=== PATIENT | male | born 1985 | race Caucasian/White ===

== ENCOUNTER 2022-05-17 13:10 | Emergency (ER) | payer MEDICAID, SELFPAY ==
[2022-05-17] VITALS (14 sets, daily range): BP systolic 110–124; BP diastolic 79–88; PULSE 47–84; RESP 18; TEMP 37.1; O2SAT 97–99; BMI 23.7
--- NOTE | 2022-05-17 14:15 | CRLHL7_ITS ---
For Patients: As a result of the Century Cures Act, medical imaging exams and procedure reports are released immediately into your electronic medical record. You may view this report before your referring provider. If you have questions, please contact your health care provider. INDICATION: Mid abdominal pain TECHNIQUE: Axial images were obtained from the diaphragm to the pubic symphysis. Reformats were obtained in the coronal and sagittal plane. IV Contrast: 85 cc Isovue 370 Oral Contrast: None COMPARISON: Abdomen and pelvis CT 11/05/2010 FINDINGS: Lower chest: Unremarkable. Liver: Unremarkable. Normal in size and attenuation. No masses. Gallbladder and bile ducts: Unremarkable. No stones or inflammation. No biliary dilatation. Spleen: Unremarkable. Normal in size without mass. Pancreas: Unremarkable. No mass or inflammation. Adrenal glands: Unremarkable. No nodules. Kidneys: Symmetric renal enhancement without hydronephrosis. Mild left renal scarring. Nonobstructing 1 millimeter stone lower pole right kidney. Vasculature: Unremarkable. GI tract: The stomach is unremarkable. No dilated loops of large or small intestine. Status post appendectomy. Pelvis: Trace free fluid deep pelvis. Status post surgery at the base of the bladder. Minimal calcification of the anterior wall of the bladder, no change. Bones: Diastasis of the symphysis pubis, chronic. IMPRESSION: 1. No dilated bowel or localized inflammation. 2. 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 3. Nonobstructive nephrolithiasis with left renal scarring redemonstrated. Please note that all CT scans at this facility use dose modulation, iterative reconstruction, and/or weight-based dosing when appropriate to reduce radiation dose to as low as reasonably achievable. Dictated by Maxime Lopez MD @ 05/17/2022 4:08:49 PM (Electronically Signed)
--- OUTSIDE RECORDS SUMMARY | 2022-05-17 14:24 | XMS_ITS | Encounter Summary ---
:1985 Author Organization [facility] Address [address] [place] [address] Care Team Providers Name Role Phone Zeke Duncan APRN, C.N.P., D.N.P., R.N. Primary Care P ernst Unavailable Reason for Visit Reason Comments Med Refill Encounter Details Date Type Department Care Team Description 08/25/2017 Refill Department of Family Medicine, Nafisa Sarkar L.PKristaNKrista Med Refill [facility], in [place], [address] [place] [address] [address] [address] [place] [address] [facility] [phone] Social History Tobacco Use Types Packs/Day Years Used Date Smoking Tobacco: Every Day E-cigarettes Smokeless Tobacco: Never Alcohol Use Standard Drinks/Week Comments Yes 0 (1 standard drink = 0.6 oz pure alcoho l) monthly or less Sex Assigned at Date Recorded Not on file documented as of this encounter Miscellaneous Notes Telephone Encounter - Nafisa Hale L.PEren - 08/27/2017 7:52 AM CST 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 - 08/25/2017 4:03 PM CST Nurse review: Unable to pend medication; Stimulant ?? Primary Provider: Mariana Duncan ?? Name of medication: Adderall Strength: 10 mg tab Frequency: take one tablet by mouth twice daily Quantity: 60 Refills: 0 Last Refill: 07/16/17 ?? Pharmacy: [facility] documented in this encounter Plan of Treatment Not on filedocumented as of this encounter Visit Diagnoses Not on filedocumented in this encounter Additional Health Concerns Assessment Noted Time PHQ-9 Depression Total Score: 10 03/05/2017 8:09 AM CD T documented as of this encounter Care Teams Vice President Network Relationship Specialty Start Date End Date Zeke Duncan, PCP - General Certified Nurse Practitioner 04/3003/10/18 KIKI C.N.P., D.N.P., R.N. documented as of this encounter
--- OUTSIDE RECORDS SUMMARY | 2022-05-17 14:24 | XMS_ITS | Encounter Summary ---
:1985 Author Organization [facility] Address [address] [place] [address] Care Team Providers Name Role Phone Ann Nava M.D. Primary Care Provider [phone] Reason for Visit Reason Comments Neck Pain C5 and C6 pain, R>L, w/ting ling and some tingling in bilateral UE Encounter Details Date Type Department Care Team Description 12/24/2020 Emergency [facility] Toro Boateng Neck Mechanical Department Kristi Estes (Primary Dx) [address] [place] [id number] Social History Tobacco Use Types Packs/Day Years Used Date Smoking Tobacco: Every Day E-cigarettes Smokeless Tobacco: Never Alcohol Use Standard Drinks/Week Comments Never 0 (1 standard drink = 0.6 oz pure alcoho l) monthly or less Alcohol Habits Answer Date Recorded How often do you have a drink containing alcohol? Never 12/24/2020 How many drinks containing alcohol do you have on a typical Not asked day when you are drinking? How often do you have six or more drinks on one occasion? No t asked Sex Assigned at Date Recorded Not on file documented as of this encounter Last Filed Vital Signs Vital Sign Reading Time Taken Comments Blood Pressure 120/84 12/24/2020 1:45 PM CDT Pulse 62 12/24/2020 1:45 PM CDT Temperature 36.9 ??C (98.4 ??F) 12/24/2020 12:01 PM CDT Respiratory Rate 20 12/24/2020 12:01 PM CDT Oxygen Saturation 96% 12/24/2020 1:45 PM CDT Inhaled Oxygen Concentration - - Weight 89.3 kg (196 lb 13.9 oz) 12/24/2020 10:31 AM CDT Height 182.9 cm (6') 12/24/2020 10:31 AM CDT Body Mass Index 26.7 12/24/2020 10:31 AM CDT documented in this encounter Discharge Instructions Discharge InstructionsToro Boateng M.D. - 12/24/2020 1:44 PM CDT You may use acetaminophen 1000 mg every 6 hours as needed for pain. Do not use aleve or ibuprofen while taking prescription Toradol. documented in this encounter Medications at Time of Discharge Medication Sig Dispensed Refills Start Date End Date acetaminophen (TYLENOL) Take 975 mg by 0 09/01/19 20 325 mg tablet mouth 4 (four) times a day. Pt states md gave me approval to take 3 tabs of 325 tylenol ibuprofen (ADVIL,MOTRIN) Take 600 mg by 0 08/31/ 020 600 mg tablet mouth 3 (three) times a day. traZODone (DESYREL) 50 mg Take 50 mg by 0 019 tablet mouth. cyclobenzaprine (FLEXERIL) Take 10 mg by mouth 0 04/30/2022 10 mg tablet 3 (three) times a day as needed for muscle spasms. cyclobenzaprine (FLEXERIL) Take 1 tablet (10 15 tablet 0 01/03/2021 10 mg tablet mg total) by mouth 3 (three) times a day as needed for muscle spasms for up to 10 days. ketorolac (TORADOL) 10 mg Take 1 tablet (10 20 tablet 0 04/30/2022 tablet mg total) by mouth every 6 (six) hours as needed for pain. documented as of this encounter ED Notes Toro Boateng M.D. - 12/24/2020 1:35 PM CDT SUBJECTIVE CHIEF COMPLAINT/REASON FOR VISIT Neck Pain (C5 and C6 pain, R>L, w/tingling and some tingling in bilateral UE) HISTORY OF PRESENT ILLNESS 35-year-old male who is in the process of workup for cervical pain which waspreviously diagnosis mechanical associated with the degenerative cervical disc at C5-6 by his history. He has had an outside MRI and workup and was scheduled for a cervical epidural injection last week that there were logistical difficulties in completing this. He is being followed at the [facility] and there specialty providers. He presents here today with refractory posterior cervical pain and radiates across the upper back but does not enter the arms he denies any focal motor weakness he has had some variable numbness and tingling of his upper arms but today his hands feel relatively normal. PAST MEDICAL HISTORY Positive for hypospadia is with multiple past urogenital procedures. REVIEW OF SYSTEMS All other systems reviewed and are negative. OBJECTIVE Initial Vitals Temperature Pulse Rate Heart Rate Resp Rate Blood Pressure SpO2 12/24/20 1201 12/24/20 1201 -- 12/24/20 1201 12/24/20 1201 12/24/20 1201 36.9 ??C 66 20 (!) 124/93 99 % Pain Score 12/24/20 1032 9 PHYSICAL EXAMINATION Constitutional: Nursing note and vitals reviewed. He appears not lethargic. No distress. HENT: Head: Atraumatic. Nose: Nose normal. No nasal discharge. Mouth/Throat: Oropharynx is clear and moist. Mucous membranes are moist. Eyes: Conjunctivae and EOM are normal. Right eye exhibits no discharge. Left eye exhibits no discharge. Neck: Neck supple. No neck adenopathy. No tracheal deviation present. He has a functional torticollis with difficulty rotating his chin to the left and also lateral flexion of his ear down to the shoulder to the left. He is also restricted slightly on the right but not quite as severe. Following some analgesics medication he improved his range of motion significantly. Cardiovascular: Normal rate, regular rhythm and normal heart sounds. Pulses are strong and palpable.Capillary refill: takes less than 3 seconds, Pulmonary/Chest: Effort normal and breath sounds normal. No tachypnea. No respiratory distress. Expiration is no prolonged expiration. Air movement is not decreased. He exhibits no retraction. Abdominal: Scaphoid and soft. Musculoskeletal: General: No tenderness, deformity or edema. Normal range of motion. Cervical back: Neck supple. 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 He is not disoriented. Displays normal reflexes. No cranial nerve deficit. He exhibits normal muscle tone. Coordination normal. Skin: Skin is warm, skin not cool and dry. No petechiae and no rash noted. He is not diaphoretic. Nojaundice. Psychiatric: He has a normal mood and affect. Behavior is normal. Judgment and thought content normal. ASSESSMENT/PLAN ED Course as of Dec 24 1340 Sun Dec 24, 2020 1339 35-year-old male presents with uncontrolled mechanical neck pain. Workup in progress at an outside facility. He has no red flag signs or symptoms on exam today and we were adequately able to control his pain with a single dose of ketorolac 60 mg IM, oxycodone 10 mg p.o. once and acetaminophen 1000 mg p.o. once. He will be discharged on oral Ketoralac and Flexeril prescriptions with the continuation of OTC acetaminophen for pain control. He is instructed to follow-up with his outside physical medicine team tomorrow for further instructions regarding rescheduling his cervical epidural. Final Diagnoses: as of Dec 24 1340 Pain Neck Mechanical Toro Boateng M.D. 12/24/20 1509 documented in this encounter Plan of Treatment Not on filedocumented as of this encounter Visit Diagnoses Diagnosis Pain Neck Mechanical - Primary documented in this encounter Administered Medications Inactive Administered Medications - up to 3 most recent administrations Medication Order MAR Action Action Date Dose Rate Site acetaminophen tablet 1,000 mg Given 12/24/2020 12:37 PM CDT 1,00 0 mg (TYLENOL) 1,000 mg, oral, Once, On 12/24/20 at 1232, For 1 dose ketorolac injection 60 mg (TORADOL) Given 12/24/2020 11:52 AM CDT 60 mg Othe r 60 mg, intramuscular, Once, On 12/24/20 at 1143, For 1 dose, Adult IV push rate: Over 15 seconds. Peds IV push rate: Over 1 minute. 60 mg dose only for IM, not recommended for IV. oxyCODONE IR tablet 10 mg (ROXICODONE) Given 12/24/2020 12:37 PM CDT 10 mg 10 mg, oral, Once, On 12/24/20 at 1232, For 1 dose documented in this encounter Active and Recently Administered Medications Times are shown in CDT. Scheduled Medication Order 12/22/2020 12/23/2020 12/24/2020 acetaminophen tablet 1,000 mg (TYLENOL) (COMPLETED) 1237 (Given - Provider: Mayela Oro) 1,000 mg, oral, Once, On 12/24/20 at 1232, For 1 dose ketorolac injection 60 mg (TORADOL) (COMPLETED) 1152 (Given - Provider: Mayela Oro) 60 mg, intramuscular, Once, On Sun at 1143, For 1 dose, Adult IV push rate: Over 15 seconds. Peds IV push rate: Over 1 minute. 60 mg dose only for IM, not recommended for IV. oxyCODONE IR tablet 10 mg (ROXICODONE) (COMPLETED) 1237 (Given - Provider: Mayela Oro) 10 mg, oral, Once, On 12/24/20 at 1232, For 1 dose documented in this encounter Additional Health Concerns Assessment Noted Time PHQ-9 Depression Total Score: 10 03/05/2017 8:09 AM CD T documented as of this encounter Care Teams Shift Coordinator Relationship Specialty Start Date End Date Ann Nava M.D. PCP - General 03/11/[address] [address] documented as of this encounter
--- OUTSIDE RECORDS SUMMARY | 2022-05-17 14:24 | XMS_ITS | Encounter Summary ---
:1985 Author Organization [facility] Address [address] [place] [address] Care Team Providers Name Role Phone Ann Nava M.D. Primary Care Provider [phone] Reason for Visit Reason Comments Nail Problem Pt presents to ED with R 5th toe pain/redness/ and streaking up foot. Pt reports he cut a hangnail ~2 days ago. Encounter Details Date Type Department Care Team Description 04/30/2022 Emergency [facility], Murray Wilkinson Par onychia Toe Right Department M.DKrista (Primary Dx) [address] [place] [address] [phone] (Wo rk) Social History Tobacco Use Types Packs/Day Years [...] Sign Reading Time Taken Comments Blood Pressure 112/79 04/30/2022 11:15 PM CDT Pulse 67 04/30/2022 11:15 PM CDT Temperature 37 ??C (98.6 ??F) 04/30/2022 11:10 PM CDT Respiratory Rate 16 04/30/2022 11:16 PM CDT Oxygen Saturation 96% 04/30/2022 11:15 PM CDT Inhaled Oxygen Concentration - - Weight 72.6 kg (160 lb) 04/30/2022 9:19 PM CDT Height 182.9 cm (6') 04/30/2022 9:19 PM CDT Body Mass Index 21.7 04/30/2022 9:19 PM CDT documented in this encounter Discharge Instructions Discharge InstructionsMurray Veronica M.D. - 04/30/2022 11:08 PM CDT Start the antibiotic cefuroxime/Ceftin as prescribed. I would expect improvement over the next 24-48hours. Soak with warm wet gauze twice a day to help break up the crusting. AttachmentsThe following attachments cannot be sent through Care Everywhere. Paronychia (Beninese)documented in this encounter Medications at Time of Discharge Medication Sig Dispensed Refills Start Date End Date hydrOXYzine (ATARAX) 50 mg 0 2 tablet QUEtiapine (SEROquel) 50 0 04/26/2022 mg tablet sertraline (ZOLOFT) 50 mg 0 01/24/2022 tablet acetaminophen (TYLENOL) Take 975 mg by mouth 0 325 mg tablet 4 (four) times a day. Pt states gave me approval to take 3 tabs of 325 tylenol cefUROXime (CEFTIN) 500 mg Take 1 tablet (500 mg 20 tablet 0 04/30/2022 tablet total) by mouth every 12 (twelve) hours. ibuprofen (ADVIL,MOTRIN) Take 600 mg by mouth 0 0 09/01/2019 600 mg tablet 3 (three) times a day. traZODone (DESYREL) 50 mg Take 50 mg by mouth. 0 02/02/2019 tablet documented as of this encounter ED Notes Murray Veronica M.D. - 04/30/2022 11:06 PM CDT [facility] 04/30/2022 11:36 PM CDT *Encounter labs and radiology results at the end of this note* Chief Complaint Patient presents with Nail Problem Pt presents to ED with R 5th toe pain/redness/ and streaking up foot. Pt reports he cut a hangnail ~2 days ago. PCP: Ann Nava M.D. HPI: 36-year-old man with no significant pertinent past medical history presenting with about two days of progressive pain, redness, and streaking redness up his right foot after removing an ingrown toenail from his right 5th toe. Initially it bled and he bandaged it. It is now red, painful with walking or touch, with the previously mentioned streaking redness. No fevers chills nausea vomiting diarrhea. No other systemic symptoms. He does recall that seeing the red streaking is a sign that he neededto get it evaluated sooner than later so he presents today for ED evaluation. No recent antibiotics.No topical treatments. A complete review of systems was obtained and negative except as in the HPI. No alcohol, tobacco, or illicit drugs. PHYSICAL EXAMINATION General: Well-appearing in no acute distress. HEENT: Head is normocephalic and atraumatic. Hearing and vision are grossly normal. No scleral icterus, jaundice, or pallor. Neck: Supple, with normal range of motion. Heart: Heart rate is normal and regular Lungs: Breathing at a normal rate, no respiratory distress Abdomen: Nondistended. Right foot: Fifth digit is erythematous, tender, with lateral nail bed crusting where the nail has recently been removed. No current ingrown nail, no discharge, drainage, purulence, or evidence of abscess. Neurologic: GCS 15. Moving all 4 extremities spontaneously. Psychiatric: Normal mood and affect. Differential diagnosis includes cellulitis, abscess, paronychia. MDM: 36-year-old gentleman presenting with right toe pain clinically consistent with paronychia fromlikely removal of his ingrown nail. No nail repair necessary and there is no incision and drainage to perform as I do not appreciate any discrete abscess. Given the streaking redness starting on his right foot which likely represents localized phlebitis, I think this is better treated with systemic antibiotics and topical. Discharge on cefuroxime. Final Diagnoses: as of 04/30/22 2336 Paronychia Toe Right Vitals: 04/30/22 2300 04/30/22 2310 04/30/22 2315 04/30/222315 BP: 112/80 112/79 BP Location: Patient Position: Pulse: 64 67 Resp: 16 16 Temp: 37 ??C TempSrc: Temporal SpO2: 97% 96% Weight: Height: Medications acetaminophen tablet 1,000 mg (TYLENOL) (1,000 mg oral Given 04/30/222123) ibuprofen tablet 600 mg (ADVIL,MOTRIN) (600 mg oral Given 04/30/222240) oxyCODONE IR tablet 5 mg (ROXICODONE) (5 mg oral Given 04/30/222315) Clinical Impression: Final diagnoses: [L03.031] Paronychia Toe Right Disposition: Discharge ED Prescriptions Medication Sig Dispense Start Date End Date Auth. Provider cefUROXime (CEFTIN) 500 mg tablet Take 1 tablet (500 mg total) by mouth every 12 (twelve) hours. 20tablet 04/30/2022 -- Murray Veronica M.D. Labs Reviewed - No data to display No orders to display Murray Veronica M.D. 04/30/22 4593 documented in this encounter Plan of Treatment Not on filedocumented as of this encounter Visit Diagnoses Diagnosis Paronychia Toe Right - Primary documented in this encounter Administered Medications Inactive Administered Medications - up to 3 most recent administrations Medication Order MAR Action Action Date Dose Rate Site acetaminophen tablet 1,000 mg Given 04/30/2022 9:24 PM CDT 1,000 mg (TYLENOL) 1,000 mg, oral, Once, On Fri04/30/22 at 2123, For 1 dose ibuprofen tablet 600 mg (ADVIL,MOTRIN) Given 04/30/2022 10:41 PM CDT 600 mg 600 mg, oral, Once, On Fri04/30/22 at 2241, For 1 dose, Take with food or milk if GI disturbances occur with use. oxyCODONE IR tablet 5 mg (ROXICODONE) Given 04/30/2022 11:16 PM CDT 5 mg 5 mg, oral, Once, On Fri04/30/22 at 2315, For 1 dose documented in this encounter Active and Recently Administered Medications Times are shown in CDT. Scheduled Medication Order 04/28/2022 04/29/2022 04/30/2022 acetaminophen tablet 1,000 mg (TYLENOL) (COMPLETED) 2123 (Given - Provider: Keri Barrios RKristaNKrista) 1,000 mg, oral, Once, On Fri04/30/22 at 2123, For 1 dose ibuprofen tablet 600 mg (ADVIL,MOTRIN) (COMPLETED) 2240 (Given - Provider: Keri Barrios RKristaNKrista) 600 mg, oral, Once, On Fri04/30/22 at 22 41, For 1 dose, Take with food or milk if GI disturbances occur with use. oxyCODONE IR tablet 5 mg (ROXICODONE) (COMPLETED) 2315 (Given - Provider: Rupinder Michelle R.N.) 5 mg, oral, Once, On Fri04/30/22 at 2315, For 1 dose documented in this encounter Additional Health Concerns Assessment Noted Time PHQ-9 Depression Total Score: 10 03/05/2017 8:09 AM CD T documented as of this encounter Care Teams Dog Sitter Relationship Specialty Start Date End Date Ann Nava M.D. PCP - General 03/11/182199 [address] [address] documented as of this encounter
--- OUTSIDE RECORDS SUMMARY | 2022-05-17 14:24 | XMS_ITS | Encounter Summary ---
:[address] [facility] Address [address] [place] [address] Care Team Providers Name Role Phone Zeke Duncan APRN, C.N.P., D.N.P., R.N. Primary Care P ernst Unavailable Reason for Visit Reason Comments Med Refill Encounter Details Date Type Department Care Team Description 07/15/2017 Refill Department of Family Medicine, Nafisa Sarkar L.P.NKrista Med Refill [facility], in [place], [address] [place] [address] [address] [address] [place] [address] [facility] [phone] Social History Tobacco Use Types Packs/Day Years Used Date Smoking Tobacco: Every Day E-cigarettes Smokeless Tobacco: Never Alcohol Use Standard Drinks/Week Comments Yes 0 (1 standard drink = 0.6 oz pure alcoho l) monthly or less Sex Assigned at Date Recorded Not on file documented as of this encounter Miscellaneous Notes Telephone Encounter - Nafisa Hale L.PKristaN. - 07/15/2017 12:48 PM FOREST OFFICER Brought to the info desk ST OFFICER Telephone Encounter - Nafisa Hale L.P.N. - 07/15/2017 10:51 AM FOREST OFFICER Nurse review: Unable to propose medication; Controlled substance Primary Provider: Zeke Duncan ?? Name of medication: ADDERALL TAB Strength: 10mg Frequency: Take one tablet by mouth twice daily Quantity: 60 Refills: Last Refill: 06-09-2017 ?? Pharmacy: Tammie Lopez [facility] documented in this encounter Plan of Treatment Not on filedocumented as of this encounter Visit Diagnoses Not on filedocumented in this encounter Additional Health Concerns Assessment Noted Time PHQ-9 Depression Total Score: 03/05/2017 8:09 AM CD T documented as of this encounter Care Teams Cruise Staff Member Relationship Specialty Start Date End Date Zeke Duncan, PCP - General Certified Nurse Practitioner 04/3003/10/18 KIKI C.N.P., D.N.P., R.N. documented as of this encounter
--- OUTSIDE RECORDS SUMMARY | 2022-05-17 14:24 | XMS_ITS | Clinical Summary ---
:1985 Author Organization [facility] Address [address] [place] [address] Care Team Providers Name Role Phone Ann Nava M.D. Primary Care Provider [phone] Source Comments Patient records contain information from all sites at [facility]. For routine questions regarding patient records, call [phone] during business hours, M-F 8:00 AM - 5:00 PM Central Time. Record requests for emergency care only can be directed to [phone] at any time.[facility] Allergies Active Allergy Reactions Severity Noted Date Comments Pollen Extracts Other (see comments) 12/24/2020 Homero ffy nose, headache Medications Medication Sig Dispensed Refills Start Date End Date Status acetaminophen Take 975 mg 0 09/01/2019 Act armando (TYLENOL) 325 mg by mouth 4 tablet (four) times a day. Pt states md gave me approval to take 3 tabs of 325 tylenol ibuprofen Take 600 mg 0 09/01/2019 Active (ADVIL,MOTRIN) 600 by mouth 3 mg tablet (three) times a day. hydrOXYzine (ATARAX) 0 01/24/2022 Active 50 mg tablet QUEtiapine 0 04/26/2022 Active (SEROquel) 50 mg tablet sertraline (ZOLOFT) 0 01/24/2022 Active 50 mg tablet traZODone (DESYREL) Take 50 mg by 0 02/02/2019 Active 50 mg tablet mouth. cefUROXime (CEFTIN) Take 1 tablet 20 tablet 0 04/30/2022 Active 500 mg tablet (500 mg total) by mouth every 12 (twelve) hours. cyclobenzaprine Take 10 mg by 0 04/30/20 Discontinued (FLEXERIL) 10 mg mouth 3 (Th erapy tablet (three) times Ineffe ctive) a day as needed for muscle spasms. ketorolac (TORADOL) Take 1 tablet 20 tablet 0 12/24/202004/30 Discontinued 10 mg tablet (10 mg total) (Th erapy by mouth Ineffectiv e) every 6 (six) hours as needed for pain. 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 Overview: Depression Anxiety Formatting of this note might be differe nt from the original. 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 Depression Major Recurrent Moderate 04/30/2012 Overview: Formatting of this note might be differe nt from the original. Inpatient psychiatry at [facility] 2011 for cutting. Formatting of this note might be differe nt from the original. Overview: Overview: Inpatient psychiatry at [facility] 2011 for cutting. Formatting of this note might be differe nt from the original. Inpatient psychiatry at [facility] 2011 for cutting. Inpatient psychiatry at [facility] 2011 for cutting. Encounters Date Type Specialty Care Team Description 04/30/2022 Ancillary Procedure 04/30/2022 Emergency [place] [facility] [place] Paron ychia Toe Right M.D. (Primary Dx) from Last 3 Months Immunizations Name Administration Dates Next Due Tdap 08/01/2015 Social History Tobacco Use Types Packs/Day Years [...] Assigned at Date Recorded Not on file Last Filed Vital Signs Vital Sign Reading [...] Mass Index 21.7 04/30/2022 9:19 PM CDT Plan of Treatment Health Maintenance Due Date Last Done Comments Depression Monitoring (PHQ-9) 1985 HIV Screening 1985 Hepatitis C Screening 1987 Tobacco Cessation counseling 1987 COVID-19 Vaccine (#1) 04/02/1988 Pneumococcal vaccine (0-64 years) 10/01/1993 (1 - PCV) Glucose Test for Med Monitoring 09/14/2020 09/15/2019, 08/28, 09/01/2019, Additional history exists Influenza Vaccine (#1) 2022 05/30/2021, 07/22/2019, 04/19/2014 DTaP,Tdap,and Td Vaccines (8 - Td 08/01/2025 08/01/2015, , or Tdap) 02/06/1993, Additional history exists Hepatitis B Vaccines Completed 03/15/2002, 08/17/2001, 01/16/2001, Additional history exists Procedures Procedure Name Priority Date/Time Associated Comments Diagnosis EMERGENCY DEPARTMENT Routine 04/30/2022 10:40 PM Results for this IMAGE EXAM CDT procedure are i n the results section. from Last 3 Months Results Toe 5th-Emergency Department Image Exam (04/30/2022 10:40 PM CDT) Specimen (Source) Anatomical Collection Method Collection Time Re ceived Time Location / / Volume Laterality 04/30/2022 10:38 PM CDT Narrative IIMS - 04/30/2022 10:41 PM CDT This order has been created and auto-finalized to support the import of images acquired without order. The clini rosemarie documentation to support these images can be found on the encounter javon t produced images. Provider Not In System IMG NON RAD IMAGING PROCEDUR ES Performing Organization Address City/State/ZIP Code Phon e Number IIMS IIMS NA from Last 3 Months Insurance Payer Benefit Plan Subscriber ID Effective Dates Phone Address Type / Group UCARE [place]ARE [place]ARE [id number] 2021-Presen [phone] [address] Medicaid HMO t 5 [place] [address] Ronan Rolon Workers Comp Self 1985 [address] [place] [address] Care Teams Manager Of Enterprise Relationship Specialty Start Date End Date Ann Nava M.D. PCP - General 03/11/18 [address] [address]
--- OUTSIDE RECORDS SUMMARY | 2022-05-17 14:24 | XMS_ITS | Encounter Summary ---
:1985 Author Organization [facility] Address [address] [place] [address] Care Team Providers Name Role Phone Zeke Duncan APRN, C.N.P., D.N.P., R.N. Primary Care P ernst Unavailable Reason for Visit Reason Comments Communication Encounter Details Date Type Department Care Team Description 08/25/2017 Clinical Communication Department of [facility] Zeke Duncan Communication Medicine, [place] Mccoy APRN, C.N.PKrista, Clinic, in [place], [place].N.P., R.N. [place] [address] [facility] [place] [address] Social History Tobacco Use Types Packs/Day Years Used Date Smoking Tobacco: Every Day E-cigarettes Smokeless Tobacco: Never Alcohol Use Standard Drinks/Week Comments Yes 0 (1 standard drink = 0.6 oz pure alcoho l) monthly or less Sex Assigned at Date Recorded Not on file documented as of this encounter Plan of Treatment Not on filedocumented as of this encounter Visit Diagnoses Not on filedocumented in this encounter Additional Health Concerns Assessment Noted Time PHQ-9 Depression Total Score: 10 03/05/2017 8:09 AM CD T documented as of this encounter Care Teams Reed Or Wind Instrument Repairer Relationship Specialty Start Date End Date Zeke Duncan, PCP - General Certified Nurse Practitioner 04/3003/10/18 KIKI C.N.P., D.N.P., R.N. documented as of this encounter
--- OUTSIDE RECORDS SUMMARY | 2022-05-17 14:24 | XMS_ITS | Encounter Summary ---
:1985 Author Organization [facility] Address [address] [place] [address] Care Team Providers Name Role Phone Zeke Duncan APRN, C.N.P., D.N.P., R.N. Primary Care P ernst Unavailable Reason for Visit Reason Onset Date Comments Med Refill 06/05/2017 Encounter Details Date Type Department Care Team Description 06/05/2017 Clinical Communication Department of [facility] Zeke Duncan Med Refill Medicine, [place] Mccoy APRN, C.N.PKrista, Clinic, in [place] oG.N.PKrista, R.N. [place] [address] [place] [address] Social History Tobacco Use Types Packs/Day Years Used Date Smoking Tobacco: Every Day E-cigarettes Smokeless Tobacco: Never Alcohol Use Standard Drinks/Week Comments Yes 0 (1 standard drink = 0.6 oz pure alcoho l) monthly or less Sex Assigned at Date Recorded Not on file documented as of this encounter Miscellaneous Notes Telephone Encounter - Rupinder Newsome CKristaMKristaAKrista - 06/09/2017 9:24 AM HUMAN RESOURCES HR REPRESENTATIVE adderall rx routed to information desk. N RESOURCES HR REPRESENTATIVE Telephone Encounter - Ligia Goodrich - 06/05/2017 12:18 PM CST Patient is out of Adderall and needs to picker tender helper an RX today if possible He is wondering if he can get a prescription for 10 mg instead of 5 Mg. He had tried 20 mg but that was too much. 5 mg doesn't seem to be enough. Patient also needs refill on Zoloft. He will be out by the weekend. This RX can be faxed to [facility] in [place]. Please call patient as soon as the RX is ready for picker tender helper. N RESOURCES HR REPRESENTATIVE documented in this encounter Plan of Treatment Not on filedocumented as of this encounter Visit Diagnoses Not on filedocumented in this encounter Additional Health Concerns Assessment Noted Time PHQ-9 Depression Total Score: 10 03/05/2017 8:09 AM CD T documented as of this encounter Care Teams Dye Range Tender Relationship Specialty Start Date End Date Zeke Duncan, PCP - General Certified Nurse Practitioner 04/3003/10/18 KIKI, C.N.P., D.N.P., R.N. documented as of this encounter
--- OUTSIDE RECORDS SUMMARY | 2022-05-17 14:24 | XMS_ITS | Encounter Summary ---
:1985 Author Organization [facility] Address [address] [place] [address] Care Team Providers Name Role Phone Ann Nava M.D. Primary Care Provider [phone] Encounter Details Date Type Department Care Team Description 04/30/2022 Ancillary Procedure Department of Emergency Medicine Social History Tobacco Use Types Packs/Day Years [...] Not on filedocumented as of this encounter Procedures Procedure Name Priority Date/Time Associated Comments Diagnosis EMERGENCY DEPARTMENT Routine 04/30/2022 10:40 PM Results for this IMAGE EXAM CDT procedure are i n the results section. documented in this encounter Results Toe 5th-Emergency Department Image Exam (04/30/2022 [...] Code Phon e Number IIMS IIMS NA documented in this encounter Visit Diagnoses Not on filedocumented in this encounter Additional Health Concerns Assessment Noted Time PHQ-9 Depression Total Score: 10 03/05/2017 8:09 AM CD T documented as of this encounter Care Teams Traffic Superintendent Relationship Specialty Start Date End Date Ann Nava M.D. PCP - General 03/11/[address] [address] documented as of this encounter
--- OUTSIDE RECORDS SUMMARY | 2022-05-17 14:24 | XMS_ITS | Encounter Summary ---
:1985 Author Organization [facility] Address [address] [place] [address] Care Team Providers Name Role Phone Zeke Duncan APRN, C.N.P., D.N.P., R.N. Primary Care P ernst Unavailable Reason for Visit Reason Comments Med Refill Encounter Details Date Type Department Care Team Description 07/15/2017 Refill Department of Family Medicine, Zeke Duncan APRN, Med Refill [facility], [facility], C.N.P., D.N .P., R.N. [place] [id number] [place] [address] [facility] [phone] Social History Tobacco Use Types Packs/Day Years Used Date Smoking Tobacco: Every Day E-cigarettes Smokeless Tobacco: Never Alcohol Use Standard Drinks/Week Comments Yes 0 (1 standard drink = 0.6 oz pure alcoho l) monthly or less Sex Assigned at Date Recorded Not on file documented as of this encounter Miscellaneous Notes Telephone Encounter - Nafisa Hale L.PKristaNKrista - 07/15/2017 10:52 AM ENGINEERING RECRUITER A new message was created and sent as a medication refill message. NEERING RECRUITER Telephone Encounter - Kirsten Dumont - 07/15/2017 9:50 AM CST Nurse review: Unable to propose medication; Controlled substance Primary Provider: Zeke Duncan Name of medication: ADDERALL TAB Strength: 10mg Frequency: Take one tablet by mouth twice daily Quantity: 60 Refills: Last Refill: 06-09-2017 Pharmacy: Tammie Gray NEERING RECRUITER documented in this encounter Plan of Treatment Not on filedocumented as of this encounter Visit Diagnoses Not on filedocumented in this encounter Additional Health Concerns Assessment Noted Time PHQ-9 Depression Total Score: 10 03/05/2017 8:09 AM CD T documented as of this encounter Care Teams Board Liner Operator Relationship Specialty Start Date End Date Zeke Duncan, PCP - General Certified Nurse Practitioner 04/3003/10/18 CELLOPHANE WORKER, C.N.P., D.N.P., R.N. documented as of this encounter
--- OUTSIDE RECORDS SUMMARY | 2022-05-17 14:24 | XMS_ITS | Encounter Summary ---
:1985 Author Organization [facility] Address [address] [place] [address] Care Team Providers Name Role Phone Zeke Duncan APRN, C.N.P., D.N.P., R.N. Primary Care P ernst Unavailable Reason for Visit Reason Comments Communication Encounter Details Date Type Department Care Team Description 07/18/2017 [facility], [place] [address] [place], [place] [address] [address] [place], [place] [phone] [address] (Work) [phone] Social History Tobacco Use Types Packs/Day Years [...] documented as of this encounter Care Teams Bryologist Relationship Specialty Start Date End Date Zeke Duncan, PCP - General Certified Nurse Practitioner 04/3003/10/18 KIKI, C.N.P., D.N.P., R.N. documented as of this encounter
--- OUTSIDE RECORDS SUMMARY | 2022-05-17 14:24 | XMS_ITS | Encounter Summary ---
:1985 Author Organization [facility] Address [address] [place] [address] Care Team Providers Name Role Phone Zeke Duncan APRN, C.N.P., D.N.P., R.N. Primary Care P ernst Unavailable Reason for Visit Reason Comments Med Refill Encounter Details Date Type Department Care Team Description 08/18/2017 Refill Department of Family Medicine, Rupinder Newsome, C.M.AKrista Med Refill [facility], in [place], [place] [address] [place] [address] [facility] [phone] Social History Tobacco Use Types Packs/Day Years Used Date Smoking Tobacco: Every Day E-cigarettes Smokeless Tobacco: Never Alcohol Use Standard Drinks/Week Comments Yes 0 (1 standard drink = 0.6 oz pure alcoho l) monthly or less Sex Assigned at Date Recorded Not on file documented as of this encounter Miscellaneous Notes Telephone Encounter - Flower Forrest RDN, LIZETH - 08/25/2017 11:34 AM CHIEF MATE Nurse review: Unable to pend medication; Stimulant Primary Provider: Mariana Duncan Name of medication: Adderall Strength: 10 mg tab Frequency: take one tablet by mouth twice daily Quantity: 60 Refills: 0 Last Refill: 07/16/17 Pharmacy: Jessica Garcia *2nd request* F MATE Telephone Encounter - Rupinder Newsome C.M.AKrista - 08/18/2017 8:49 AM CHIEF MATE Nurse review: Unable to pend medication; CS med Primary Provider: Zeke Duncan ?? Name of medication: Adderall Strength: 10 mg tab Frequency: Take one tab PO 2x day Quantity: 60 Refills: 0 Last Refill: 07/16/17 ?? Pharmacy: Jessica Butler F MATE documented in this encounter Plan of Treatment Not on filedocumented as of this encounter Visit Diagnoses Not on filedocumented in this encounter Additional Health Concerns Assessment Noted Time PHQ-9 Depression Total Score: 10 03/05/2017 8:09 AM CD T documented as of this encounter Care Teams Ore Fielder Relationship Specialty Start Date End Date Zeke Duncan, PCP - General Certified Nurse Practitioner 04/3003/10/18 KIKI C.N.P., D.N.P., R.N. documented as of this encounter
--- OUTSIDE RECORDS SUMMARY | 2022-05-17 14:24 | XMS_ITS | Encounter Summary ---
:1985 Author Organization [facility] Address [address] [place] [address] Care Team Providers Name Role Phone Zeke Duncan APRN, C.N.P., D.N.P., R.N. Primary Care P ernst Unavailable Reason for Visit Reason Comments Med Refill Encounter Details Date Type Department Care Team Description 06/06/2017 Refill Department of [facility] Florencia Rodriguez L.PEren Med Refill Medicine, [facility], in [address] [place] [address] [address] [address] [place] [address] [facility] [phone] Social History Tobacco Use Types Packs/Day Years [...] documented as of this encounter Care Teams Cyber Special Agent Relationship Specialty Start Date End Date Zeke Duncan, PCP - General Certified Nurse Practitioner 04/3003/10/18 KIKI, C.N.P., D.N.P., R.N. documented as of this encounter
--- OUTSIDE RECORDS SUMMARY | 2022-05-17 14:24 | XMS_ITS | Encounter Summary ---
:1985 Author Organization [facility] Address [address] [place] [address] Care Team Providers Name Role Phone Zeke Duncan APRN, C.N.P., D.N.P., R.N. Primary Care P ernst Unavailable Reason for Visit Reason Comments Med Refill Encounter Details Date Type Department Care Team Description 08/18/2017 Refill Department of Family Medicine, Zeke Duncan APRN, Med Refill [facility], [facility] [place] C.N.P., D.N .P., R.N. [place] [address] [place] [address] [facility] [phone] Social History Tobacco Use Types Packs/Day Years Used Date Smoking Tobacco: Every Day E-cigarettes Smokeless Tobacco: Never Alcohol Use Standard Drinks/Week Comments Yes 0 (1 standard drink = 0.6 oz pure alcoho l) monthly or less Sex Assigned at Date Recorded Not on file documented as of this encounter Miscellaneous Notes Telephone Encounter - Aide Casiano - 08/18/2017 7:16 AM CST Nurse review: Unable to pend medication; CS med Primary Provider: Zeke Duncan Name of medication: Adderall Strength: 10 mg tab Frequency: Take one tab PO 2x day Quantity: 60 Refills: 0 Last Refill: 07/16/17 Pharmacy: Jessica Butler LITIES ASSISTANT documented in this encounter Plan of Treatment Not on filedocumented as of this encounter Visit Diagnoses Not on filedocumented in this encounter Additional Health Concerns Assessment Noted Time PHQ-9 Depression Total Score: 10 03/05/2017 8:09 AM CD T documented as of this encounter Care Teams Sawyer Helper Relationship Specialty Start Date End Date Zeke Duncan, PCP - General Certified Nurse Practitioner 04/3003/10/18 KIKI, C.N.P., D.N.P., R.N. documented as of this encounter
--- OUTSIDE RECORDS SUMMARY | 2022-05-17 14:25 | XMS_ITS | Encounter Summary ---
:1985 Author Organization [facility] Address [address] [place] [address] Care Team Providers Name Role Phone Unavailable Primary Care Provider Unavailable Encounter Details Date Type Department Care Team Description 02/08/2014 Hospital Encounter HX NO MAPPING Jonathon Strong III, M.D. (Skip), M.P.H. [address] [place], [place] [address] (Wo rk) Social History Tobacco Use Types Packs/Day Years Used Date Smoking Tobacco: Never Assessed Sex Assigned at Date Recorded Not on file documented as of this encounter Plan of Treatment Not on filedocumented as of this encounter Visit Diagnoses Not on filedocumented in this encounter Additional Health Concerns Assessment Noted Time PHQ-9 Depression Total Score: 1 02/26/2012 12:00 PM CD T documented as of this encounter
--- OUTSIDE RECORDS SUMMARY | 2022-05-17 14:25 | XMS_ITS | Encounter Summary ---
:1985 Author Organization [facility] Address [address] [place] [address] Care Team Providers Name Role Phone Jami Ross APRN C.N.Olga, M.S. Primary Care Pro vider Encounter Details Date Type Department Care Team Description 04/29/2017 Orders Only Department of Family [facility] [place] APRN, Examin [facility], in [place] Go, M.S . [place] [address] [facility] [address] [place] [address] Social History Tobacco Use Types Packs/Day Years Used Date Smoking Tobacco: Every Day Sex Assigned at Date Recorded Not on file documented as of this encounter Plan of Treatment Not on filedocumented as of this encounter Visit Diagnoses Diagnosis General Medical Examination Adult documented in this encounter Additional Health Concerns Assessment Noted Time PHQ-9 Depression Total Score: 10 03/05/2017 8:09 AM CD T documented as of this encounter Care Teams Ironworker Helper Shop Relationship Specialty Start Date End Date Jami Ross APRN, C.N.P., PCP - General 12/12/16 05/14/17 M[address] [place] [address] documented as of this encounter
--- OUTSIDE RECORDS SUMMARY | 2022-05-17 14:25 | XMS_ITS | Encounter Summary ---
:1985 Author Organization [facility] Address [address] [place] [address] Care Team Providers Name Role Phone Zeke Duncan APRN, C.N.P., D.N.P., R.N. Primary Care P ernst Unavailable Reason for Visit Reason Comments Communication Encounter Details Date Type Department Care Team Description 05/13/2017 Clinical Communication Department of [facility] Paty Aj Communication MedicineDonavan M.D. [facility], in [address] [address] [place], [place] [phone] [address] (Work) [phone] Social History Tobacco Use Types Packs/Day Years Used Date Smoking Tobacco: Every Day E-cigarettes Smokeless Tobacco: Never Alcohol Use Standard Drinks/Week Comments Yes 0 (1 standard drink = 0.6 oz pure alcoho l) monthly or less Sex Assigned at Date Recorded Not on file documented as of this encounter Miscellaneous Notes Telephone Encounter - Paty Aj M.D. - 05/15/2017 8:51 AM CAMPAIGN MARKETING MANAGER Work excuse provided. AIGN MARKETING MANAGER documented in this encounter Plan of Treatment Not on filedocumented as of this encounter Visit Diagnoses Not on filedocumented in this encounter Additional Health Concerns Assessment Noted Time PHQ-9 Depression Total Score: 10 03/05/2017 8:09 AM CD T documented as of this encounter Care Teams Senior Premium Auditor Relationship Specialty Start Date End Date Zeke Duncan, PCP - General Certified Nurse Practitioner 04/3003/10/18 Vijaya SWANSONNKristaP., D.N.P., R.N. documented as of this encounter
--- OUTSIDE RECORDS SUMMARY | 2022-05-17 14:25 | XMS_ITS | Encounter Summary ---
:1985 Author Organization [facility] Address [address] [place] [address] Care Team Providers Name Role Phone Unavailable Primary Care Provider Unavailable Encounter Details Date Type Department Care Team Description 08/01/2015 Hospital Encounter [facility]X [facility] Jami Sylvester APRN, C.N.P., M.S. [address] [place] [address] (Wo rk) Social History Tobacco Use Types Packs/Day Years Used Date Smoking Tobacco: Never Assessed Sex Assigned at Date Recorded Not on file documented as of this encounter Last Filed Vital Signs Vital Sign Reading Time Taken Comments Blood Pressure 110/64 08/01/2015 1:50 PM DIRECTOR OF PUBLIC SAFETY Pulse 88 08/01/2015 1:50 PM DIRECTOR OF PUBLIC SAFETY Temperature - - Respiratory Rate 16 08/01/2015 1:50 PM DIRECTOR OF PUBLIC SAFETY Oxygen Saturation - - Inhaled Oxygen Concentration - - Weight 75.7 kg (166 lb 14.2 oz) 08/01/2015 1:50 PM DIRECTOR OF PUBLIC SAFETY Height - - Body Mass Index 22.36 02/26/2012 10:00 AM CDT documented in this encounter Progress Notes Jami Barone APRN, R.N. - 08/01/2015 1:34 PM CST [id number] CHIEF COMPLAINT/REASON FOR VISIT Medication refill, depression. HISTORY OF PRESENT ILLNESS 1. Attention deficit hyperactivity disorder. The patient presents today in order to obtain a refill of his Ritalin. He has been off of it since March. Patient temporarily relocated to [place], but he is back living in [place] now. His last prescription for the Ritalin was filled on February, for a 1-month supply according to the [place] Prescription Monitoring program. He denies that he obtained any prescriptions in [place] while he stayed there. He states that since being off ofthis medication his inattention symptoms have worsened. He is seeking to restart this medication nowbecause he is going to be employed full-time starting on Friday, and he knows that this medication will increase the likelihood of job success. He will be working at [employer]. Patient had been formally diagnosed with ADHD by [facility] in December of 2012. He has received his medications from several providers at the [facility]. Past dose was Adderall 20 mg 2 times daily. He thinks that because he has been off this medication for quite some time that he may no longer require such a high dose. 2. Depression. Patient states that he has battled with depression for many years. He has never undergone counseling for his depression symptoms. He states that he had a suicide attempt but that was many years ago. Has also had transient suicidal ideation but none at present time. He often has feelingsthat he is a failure and loss of pleasure in doing things. The patient has been treated with severaldifferent antidepressants in the past, and he is looking to resume therapy with an SSRI. He identifies increased stress at present time due to a recent break-up with his fiancee. He states that his depression symptoms had worsened prior to this event. PHQ-9 score 18 today. MEDICATIONS None. ALLERGIES None. SYSTEMS REVIEW Negative except as stated in the history of present illness. PAST MEDICAL/SURGICAL HISTORY Attention deficit hyperactivity disorder, depression, epispadias with surgical repair as a child. SOCIAL HISTORY HEALTH HABITS: Patient currently is a tobacco user smoking less than 1/2 pack per day. He denies useof alcohol. Admits to recently smoking marijuana at a libertarian but states this is not a regular habit of his. Denies use of other street drugs. 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 He will begin full-time employment through a temporary agency at [employer] starting next week. IMMUNIZATIONS: Patient reports he is due for a tetanus immunization. FAMILY HISTORY Patient reports his grandmother had colon cancer. Denies other family history of chronic illnesses or cancers. VITAL SIGNS Weight 75.7 kg. Temperature 36.8, heart rate 88, respiratory rate 16, blood pressure 110/64. PHYSICAL EXAMINATION GENERAL: Patient is a well-developed, well-nourished 29-year-old male, in no acute distress. His behavior, appearance, and speech are appropriate today. SKIN: Warm to the touch with good turgor. No rashes or ulcerations. EYES: Sclerae are white. Conjunctivae are without erythema. LUNGS: Clear to auscultation bilaterally in all ambrosio without rales, rhonchi, wheezing, or diminished breath sounds. CARDIOVASCULAR: S1, S2. Regular rate and rhythm without murmurs, rubs, or gallops. NEUROLOGIC: Mental status: Alert and oriented x3. Normal affect. No suicidal or homicidal ideation. IMPRESSION/REPORT/PLAN 1. Attention deficit hyperactivity disorder. Discussed risks and benefits of ongoing stimulant medication therapy. Advised patient that combination of counseling as well as pharmacologic therapy is beneficial for control of his ADHD symptoms. Patient agrees and referral was placed for [facility] in [place]. Discussed the need to establish with a primary care provider and obtain stimulant medications only from that provider. Patient agrees to this. Controlled substance agreement contract was reviewed and patient agrees to the terms. Patient was provided a 30-day prescription forAdderall 10 mg 2 times daily. He will return in 2 weeks' time to follow up on his depression symptoms and he will obtain his next month's supply at that visit. 2. Depression. Again, counseling was encouraged for better control of his depression symptoms. The patient has been referred to an outside provider for counseling. Patient will restart Zoloft. He will begin at a dose of 25 mg for 1 week then increasing to 50 mg. Patient was cautioned that there is potential for worsening depression with use of these types of medications. Patient verbalized understanding that should his depression worsen or if he has suicidal or homicidal ideation, he should seek emergent care in the emergency room. Patient will follow up in 2 weeks, sooner if needed. 3. Health maintenance. Tdap immunization provided today. Patient will be due for a general medical examination this summer, in December, and he agrees to this visit. Jami Barone R.N. (Meg)/saud Electronically Signed By: JAMI BARONE APRN On: 08/02/2015 10:14 AM Modified by and Electronically Signed by: JAMI BARONE APRN On: 08/02/2015 10:14 AM Source: [facility] MHSDOLBEYNONRADSYS Document Id: [id number] CTOR OF PUBLIC SAFETY documented in this encounter Miscellaneous Notes Miscellaneous - Dean Dawson R.N. - 03/11/2016 2:53 PM CDT Med Management- Zoloft Document Contains Addenda Addendum by JAMI BARONE APRN, RN on March 11, 2016 15:14:05 CDT sent Addendum by JAMI BARONE APRN, RN on March 11, 2016 15:13:54 CDT Approved with modifications: Order:sertraline (Zoloft 100 mg oral tablet) 1 tab(s) PO Daily Appt needed Qty: 30 tab(s) Refills: 2 Substitutions Allowed Route To Pharmacy - [facility] Signed by JAMI BARONE APRN, RN 03/11/2016 15:13:51 From: DEAN DAWSON RN (OW Nurse Line) To: JAMI BARONE APRN, RN; Sent: 03/11/2016 14:53:24 CDT Subject: Med Management- Zoloft On hold pending signature Order:sertraline (Zoloft 100 mg oral tablet) 1 tab(s) PO Daily Appt needed Qty: 30 tab(s) Refills: 0 Substitutions Allowed Route To Pharmacy [facility] Caller is: ( ) Patient ( ) Mother ( ) Father ( ) Spouse ( ) Daughter ( ) Son ( [employer]) Pharmacy ( ) Other: Provider: [facility]acy: Name of Medications Needing Refill:Zoloft Last Refill Date: Additional Information:Last appt 08/29/15 (attached) with request for f/u in (1) month PHQ9 (22) and GAD7 (18) also 08/29/15 - attached Last / Future Appointment:No pending appt Disposition: ( ) Send to Pharmacy ( ) Call to Pharmacy ( ) 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 Looked up the phone number for him to call at [phone]. He agreed to call them. From: JORDAN QUINTERO ([facility] 2W Nurse) To: [facility] 2W Nurse; Sent: 08/04/2015 13:48:44 DIRECTOR OF PUBLIC SAFETY Subject: *Phone Message- Nhi Caller is: ( x ) Patient ( ) Mother ( ) Father ( ) Spouse ( ) Daughter ( ) Son ( ) Pharmacy ( ) Other: Physician: Patient MRN #: Reason for Call: Message: would like a call, would like to discuss appt he had with Nhi about referal, please call [phone] Advice/Action: Source used: ( ) Verbalizes understanding of instructions ( ) Instructed to call back if symptoms worsen or do not resolve ( ) Refused to see provider ( ) Appointment Scheduled ( ) OK to leave message on voice mail ( ) Patient told to expect return call: ( ) today ( ) tomorrow ( ) next work day ( ) Patient's email ( ) Patient told physician out of office, will call upon return call on ( ) ( ) Patient told physician out of office, routed to other physician ( ) Other ( ) Call back telephone number ( ) Call back cell phone number ( ) Source: [facility] Activehours Document Id: [id number] Telephone Encounter - Vivek Booth C.M.A. - 08/02/2015 9:13 AM DIRECTOR OF PUBLIC SAFETY *Phone Message- f/up questions on recent referral Document Contains Addenda Addendum by AILYN RUBIO CMA on 09 August 2015 10:14:05 DIRECTOR OF PUBLIC SAFETY patient was seen by Chica on 08-08-15 and has spoke with Chica about this. See EMR notes. Addendum by ERIC VASQUES CMA on 03 August 2015 12:43:53 DIRECTOR OF PUBLIC SAFETY Left message to call back Addendum by JAMI BARONE APRN on 03 August 2015 12:40:50 DIRECTOR OF PUBLIC SAFETY From: JAMI BARONE APRN To: [facility] 2W Nurse; Sent: 08/03/2015 12:40:50 DIRECTOR OF PUBLIC SAFETY Subject: RE: *Phone Message- f/up questions on recent referral This patient just needs counseling. No med therapy from psychiatry. Based on the message below, patient needs to call himself. Please notify the patient of this. Thanks Addendum by ERIC VASQUES CMA on 03 August 2015 10:56:13 DIRECTOR OF PUBLIC SAFETY From: ERIC VASQUES CMA ([facility] 2W Nurse) To: JAMI BARONE APRN; Sent: 08/03/2015 10:56:13 DIRECTOR OF PUBLIC SAFETY Subject: FW: *Phone Message- f/up questions on recent referral Addendum by ERIC VASQUES CMA on 03 August 2015 10:56:07 OSMEL Spoke to senior receptionist at [facility]. pshychiatry and psychology. She wants everyone here ([facility]) to know they DO NOT call patients and they DO NOT need referrals from our doctors. The patient must call to schedule their appt. Currently at this time they do not have a psychiartist on staff, they are in the process of training one but No start date has been indicated. They do have psychologist on staff in several different specialty areas, however no psychiatrist to prescribe meds at this time. Patients may call their [place] office if they are willing to drive there. Ask her about Talk therapy and she never heard of it, she is not sure what you mean by talk therapy,they have Play therapy Please advise Addendum by VIVEK BOOTH CMA on 02 August 2015 09:45:13 DIRECTOR OF PUBLIC SAFETY I called pt and left message to call back. Addendum by HARRISONCHIKISJAMI SCHILLING KIKI on 02 August 2015 09:30:27 DIRECTOR OF PUBLIC SAFETY From: LIZABETH JAMI Mccoy KIKI To: [facility] 2 Nurse; Sent: 08/02/2015 09:30:27 DIRECTOR OF PUBLIC SAFETY Subject: RE: *Phone Message- f/up questions on recent referral Talk therapy please. I can do the medications at this point. Thanks From: VIVEK BOOTH CMA ([facility] 2W Nurse) To: LIZABETH JAMI Nadine SWANSON; Sent: 08/02/2015 09:13:02 DIRECTOR OF PUBLIC SAFETY Subject: *Phone Message- f/up questions on recent referral Caller is: ( ) Patient ( ) Mother ( ) Father ( ) Spouse ( ) Daughter ( ) Son ( ) Pharmacy ( X ) Other: [facility] office Physician: Chica Lizabeth Patient MRN #: Reason for Call: Re: recent referral Message: Do you want pt to have talk therapy or medications? They are at a stand still for psychiatry right now, but would be able to get him in for talk therapy. Please advise. Also, had mentioned referral is not required but pt would need to call them to set up appt. - [place] office # [phone] & [facility] office # [phone]. Advice/Action: Message sent to provider to review & advise on type of therapy needed. Can call pt to inform him to contact them to set up appt. Source used: ( ) Verbalizes understanding of instructions ( ) Instructed to call back if symptoms worsen or do not resolve ( ) Refused to see provider ( ) Appointment Scheduled ( ) OK to leave message on voice mail ( ) Patient told to expect return call: ( ) today ( ) tomorrow ( ) next work day ( ) Patient's email ( ) Patient told physician out of office, will call upon return call on ( ) ( ) Patient told physician out of office, routed to other physician ( ) Other ( ) Call back telephone number ( ) Call back cell phone number ( ) Source: [facility] Activehours Document Id: [id number] Electronically signed by Conversion, [facility] [employer] Speech Therapist [id number] at 11/23/2016 9:30 AM CDT Miscellaneous - Conversion, Historical Provider Ser - 08/02/2015 9:04 AM DIRECTOR OF PUBLIC SAFETY [facility] 02 August 2015 Re: RONAN MAGALLANES 1985 MR# [id number] Date of Visit 08/01/2015 [facility], To Whom it May Concern, This patient is being referred for continuing care at your facility. Following your evaluation(s), Iwould appreciate hearing: Your findings and recommendations Notification regarding any medication changes Copies of lab radiology and other reports Please see included pertinent records. Thank you for your assistance with the evaluation and treatment of this patient. Sincerely, Jami Barone APRN The following Transition of Care Summary was included in the letter: (08/02/2015) Transition of Care/Referral Summary This document has images extracted. Source: [facility] Activehours Document Id: [id number] Telephone Encounter - Yoly Bridges - 08/02/2015 8:17 AM CST Outside Referral Entered by YOLY GREENBERG on 02 August 2015 08:17:17 DIRECTOR OF PUBLIC SAFETY REFERRAL SENT TO [facility] [place] FAX: [phone] The following patient has a Consult to Outside Specialist Non-[facility]ner: order placed. No Flagged Problems Patient Name: RONAN MAGALLANES Diagnosis: Attention-deficit hyperactivity disorder, predominantly inattentive type,depressive disorder, single episode, unspecified,hyperactivity disorder, predominantly inattentive type,depressive disorder, single episode, unspecified, Ordering Provider: JAMI BARONE APRN ; Original Order DT/TM: August 01, 2015 14:22:18 DIRECTOR OF PUBLIC SAFETY ; Order Details: [facility] Other: Define in Special Instructions Subspecialty Requested: NOT FOUND Schedule with Specific Provider, If Known: NOT FOUND Appointment has been/will be made by: My Director Loan/Office If yes, When is appointment: NOT FOUND Arc to Process Referral : NOT FOUND Special Instructions: [facility]. No Flagged Problems Depression NOS, ADD. Patient has the following Flagged Problems: No Flagged Problems Available Source: [facility] POWERCHART Document Id: [id number] Miscellaneous - Jami Barone APRN, R.N. - 08/01/2015 3:41 PM DIRECTOR OF PUBLIC SAFETY Ambulatory Patient Summary [address] [id number] Visit Information Name: RONAN MAGALLANES [facility] Number: [id number] Current Date: 08/01/2015 15:41:06 Physicians Attending Provider: JAMI BARONE APRN Primary Care Provider: PRIETO REDMOND MD RONAN MAGALLANES has been given the following list of follow-up instructions, medication list, and patient education materials: Follow-up Instructions Your Medications Here is a list of your medications. It is important to take your medications as directed. Use a pillbox or chart to help remind you to take your medications. Please let your doctor or nurse know if you have problems taking your medications. Medication/Strength How to Take Indications/Special Instructions/Comments/Notes for Patient Medication Changes/Routing dextroamphetamine-amphetamine (Adderall 10 mg oral tablet) 1 Tablet(s), Oral, two times a day Do notfill until 16. AM & Noon This is a CHANGE Routed to [employer] sertraline (Zoloft 50 mg oral tablet) 1 Tablet(s), Oral, once a day 1/2 tab for one week than increase to 1 [place] [address] Stop Taking the Following Medications: Medication list as of 08-01-15 15:41 Attention: If you have any medications at home that are not on this list, DO NOT take them until youcontact your provider for clarification. Give a copy of your medication list to your primary care provider. Update your medication list any time medications or doses are changed and carry your medication list at all times in case of emergency. Electronically Signed By: JAMI BARONE APRN Signed On:01-AUG-2015 15:41:01 Your Allergies & Intolerances Substance Reaction Symptoms Category Comments No Known Allergies Drug Your Problem List Problem Status Onset Comments ADD. Active 01/01/2013 Your Upcoming Appointments Date Time Location Provider 08/15/2015 08:45 [facility] Jami Barone APRN Attention: Contact your local Clinic if further appointment detail needed. Consider Using Patient Online Services Patient Online Services is a secure online and Mobile application that lets you: ?? View lab and test results ?? View portions of your medical record including clinical notes, immunizations and discharge summaries ?? Request an appointment or medication refill ?? Review your appointment schedule ?? Send secure messages to your care team Its easy to create an account if you dont have one. Go to [email or web address] and click on Create Your Account. Then, follow the directions to complete the online form. Youll be asked for your [facility] number which you can find at the top of this document. Your Goals/Additional instructions: Source: [facility] POWERCHART Document Id: [id number] CTOR OF PUBLIC SAFETY Miscellaneous - Jami Barone APRN, R.N. - 08/01/2015 3:41 PM DIRECTOR OF PUBLIC SAFETY Ambulatory Discharge Medication List [facility] [address] [place], [place] [id number] Visit Information Name: RONAN MAGALLANES [facility] Number: [id number] Visit Date: 08/01/2015 15:41:04 Attending Provider: JAMI BARONE APRN Primary Care Provider: PRIETO REDMOND MD RONAN MAGALLANES has been given the following list of medications: Your Medications It is important to take your medications as directed. Use a pill box or chart to help remind you to take your medications. Please let your doctor or nurse know if you have problems taking your medications. Medication/Strength How to Take Indications/Special Instructions/Comments/Notes for Patient Medication Changes/Routing dextroamphetamine-amphetamine (Adderall 10 mg oral tablet) 1 Tablet(s), Oral, two times a day Do notfill until 08-01-15. AM & Noon This is a CHANGE Routed to [email or web address] sertraline (Zoloft 50 mg oral tablet) 1 Tablet(s), Oral, once a day 1/2 tab for one week than increase to 1 full tab [facility] [address] Stop Taking the Following Medications: Medication list as of 08-01-15 15:41 Attention: If you have any medications at home that are not on this list, DO NOT take them until youcontact your provider for clarification. Give a copy of your medication list to your primary care provider. Update your medication list any time medications or doses are changed and carry your medication list at all times in case of emergency. Electronically Signed By: JAMI BARONE APRN Signed On:01-AUG-2015 15:41:01 Additional Information: Source: [facility] POWERCHART Document Id: [id number] CTOR OF PUBLIC SAFETY Miscellaneous - Jami Barone APRN, R.N. - 08/01/2015 3:22 PM DIRECTOR OF PUBLIC SAFETY PHQ-9 PHQ-9 Entered On: 08/01/2015 15:24 DIRECTOR OF PUBLIC SAFETY Performed On: 08/01/2015 15:22 DIRECTOR OF PUBLIC SAFETY by JAMI BARONE APRN PHQ-9 Little interest or pleasure in doing things : More than half the days Feeling down, depressed, or hopeless : More than half the days Trouble falling or staying asleep, or sleeping too much : More than half the days Feeling tired or having little energy : Several days Poor appetite or overeating : More than half the days Feeling bad about yourself or that you are a failure : More than half the days Trouble concentrating on things : More than half the days Moving or speaking slowly; restless or fidgety : Nearly every day Thoughts that you would be better off /hurting self : More than half the days PHQ-9 Calculated Score : 18 Problems make work, home, or dealing with others : Very difficult JAMI BARONE APRN - 08/01/2015 15:22 DIRECTOR OF PUBLIC SAFETY [facility] Document Id: [id number] DIRECTOR OF PUBLIC SAFETY!13 CTOR OF PUBLIC SAFETY Miscellaneous - Anurag Parker L.P.NKrista - 08/01/2015 1:50 PM CST Adult Digital Strategist Senior Manager Intake/History Adult Digital Strategist Senior Manager Intake/History Entered On: 08/01/2015 13:53 DIRECTOR OF PUBLIC SAFETY Performed On: 08/01/2015 13:50 DIRECTOR OF PUBLIC SAFETY by ANURAG PARKER LPN Intake Chief Complaint : Med refill and discuss depression Temperature Oral : 36.8 DegC(Converted to: 98.2 DegF) Peripheral Pulse Rate : 88 /min Respiratory Rate : 16 /min Systolic Blood Pressure : 110 mmHg Diastolic Blood Pressure : 64 mmHg NIBP Mean : 79 mmHg BP Location : Right upper extremity Blood Pressure Cuff Size : Regular Actual Weight : 75.7 kg(Converted to: 166 lb 14 oz) Weight Source : Standing scale Dosing Weight Clinic : 75.7 kg ANURAG PARKER LPN - 08/01/2015 13:50 DIRECTOR OF PUBLIC SAFETY General Info Information Given By : Patient Preferred Communication Mode : Verbal Languages : Greek Is Patient Female and 13-50 no hysterectomy : No ANURAG PARKER LPN - 08/01/2015 13:50 DIRECTOR OF PUBLIC SAFETY Subjective Pain Symptoms : No ANURAG PARKER LPN - 08/01/2015 13:50 DIRECTOR OF PUBLIC SAFETY Dependent Habits Exposure to Tobacco Smoke : Patient smokes Smoking Status : Current every day smoker Tobacco 2A : Yes Tobacco Use/Currently Using : Yes Tobacco Use/Last 30 Days : Yes Tobacco Use/Last 12 months : Yes Type : Cigarettes: Less than 20 per day Tobacco Use/Advised to Quit : Yes ANURAG PARKER LPN - 08/01/2015 13:50 DIRECTOR OF PUBLIC SAFETY Caffeine Use Grid Caffeine Use : Current Type : Coffee, Soft drinks Frequency : Daily ANURAG PARKER LPN - 08/01/2015 13:50 DIRECTOR OF PUBLIC SAFETY Source: [facility] Document Id: [id number] DIRECTOR OF PUBLIC SAFETY!35 CTOR OF PUBLIC SAFETY documented in this encounter Plan of Treatment Not on filedocumented as of this encounter Visit Diagnoses Not on filedocumented in this encounter Additional Health Concerns Assessment Noted Time PHQ-9 Depression Total Score: 18 08/01/2015 3:22 PM CS T documented as of this encounter
--- OUTSIDE RECORDS SUMMARY | 2022-05-17 14:25 | XMS_ITS | Encounter Summary ---
:1985 Author Organization [facility] Address [address] [place] [address] Care Team Providers Name Role Phone Unavailable Primary Care Provider Unavailable Encounter Details Date Type Department Care Team Description 12/01/2013 - Hospital Encounter HX NO MAPPING Lance Hensley, 12/02/2013 M.DKrista [address] [place], [place] [address] (Wo rk) Social History Tobacco Use Types [...]
--- OUTSIDE RECORDS SUMMARY | 2022-05-17 14:25 | XMS_ITS | Encounter Summary ---
:1985 Author Organization [facility] Address [address] [place] [address] Care Team Providers Name Role Phone Unavailable Primary Care Provider Unavailable Encounter Details Date Type Department Care Team Description 08/29/2015 Hospital Encounter HX [facility] Jami Sylvester APRN, C.N.P., M.S. [address] [place] [address] (Wo rk) Social History Tobacco Use Types Packs/Day Years Used Date Smoking Tobacco: Never Assessed Sex Assigned at Date Recorded Not on file documented as of this encounter Last Filed Vital Signs Vital Sign Reading Time Taken Comments Blood Pressure 122/82 08/29/2015 4:55 PM CANTILEVER CRANE OPERATOR Pulse 96 08/29/2015 4:55 PM CANTILEVER CRANE OPERATOR Temperature - - Respiratory Rate - - Oxygen Saturation - - Inhaled Oxygen Concentration - - Weight 69.9 kg (154 lb 1.6 oz) 08/29/2015 4:55 PM CANTILEVER CRANE OPERATOR Height - - Body Mass Index 20.65 02/26/2012 10:00 AM CDT documented in this encounter Medications at Time of Discharge Medication Sig Dispensed Refills Start Date End Date DIPHENHYDRAMINE HCL ORAL Take by mouth at 0 08/2805/13/2017 bedtime as needed. melatonin 10 mg capsule Take 1 capsule by 0 08/2805/13/2017 mouth at bedtime. documented as of this encounter Progress Notes Jami Ross APRN, R.N. - 08/29/2015 4:45 PM CST [id number] CHIEF COMPLAINT/REASON FOR VISIT Follow up ADD, depression, anxiety. HISTORY OF PRESENT ILLNESS Patient presents today for follow up of his attention deficit disorder as well as anxiety and depression. He has been undergoing therapy at [facility] in [place]. He is seeing the counselor there on a regular basis. He has also recently increased his Zoloft dose from 50 to 100 mg on August 24, 2015. He states that since making this change his perceived side effect of dry mouth has actually improved. He has been treated with Adderall 10 mg 2 times daily for his attention deficit symptoms. He does feel that this needs to be increased to his previous dose of 20 mg 2 times daily. He states that he performs well at work throughout the morning but his attention span and productivity decreases considerably in the afternoon. He states that his mood does deteriorate in theafternoon as well. He states that his anxiety has improved a little bit. He has not had any panic attacks. He is out of his supply of Ativan and does not feel that he needs this at this time. He statesthat his appetite is good. He is eating regularly. He is sleeping okay at night. He states he has been using melatonin 10 mg prior to bedtime with good results. He has occasionally taken ZzzQuil at bedtime as needed but this is not a regular occurrence. He states he occasionally will have difficulty with thought rumination at bedtime. He is discussing this with his counselor. The patient denies any suicidal or homicidal ideation at this time. PHQ-9 score today is 22 which is slightly elevated from last check. He states that he did have some disappointing news regarding his ex-girlfriend. This did cause significant depression symptoms starting last night. His MARCOS-7 score today is 18 which is improved from a score of 21. The patient does request a urine drug screen. He states he has been working very hard at maintaining sobriety. He states he has not used any marijuana for over 1 month. He wishes to continue in sobriety and he feels that screening for drugs of abuse will keep him accountable. MEDICATIONS Adderall 10 mg by mouth 2 times daily. Melatonin 10 mg capsule 1 capsule by mouth at bedtime daily. Zoloft 100 mg capsule 1 capsule by mouth daily. ZzzQuil by mouth as needed at bedtime for sleep. ALLERGIES None. SYSTEMS REVIEW Negative except as stated in the history of present illness. PAST MEDICAL/SURGICAL HISTORY Attention deficit/hyperactivity disorder. Depression. Epispadias with surgical repair as a child. SOCIAL HISTORY HEALTH HABITS: Patient is currently a tobacco user. He abstains from street drug use at this time. Reports sobriety of 1 month. 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 VITAL SIGNS Weight 69.09 kg, heart rate 96, blood pressure 122/82. PHYSICAL EXAMINATION GENERAL: Patient is a well-developed, well-nourished, 29-year-old male in no acute distress. His behavior, appearance, and speech are appropriate today. He is notably more calm than compared to previous visits. He is not as tearful during today's visit. LUNGS: Clear to auscultation bilaterally in all ambrosio without rales, rhonchi, wheezing, or diminished breath sounds. CARDIOVASCULAR: S1, S2. Regular rate and rhythm without murmurs, rubs, or gallops. NEUROLOGIC: Mental status alert and oriented x3. Normal affect. No suicidal or homicidal ideation. IMPRESSION/REPORT/PLAN 1. Attention deficit/hyperactivity disorder. The patient feels that anxiety symptoms are adequately controlled and that an increase in his Adderall dose to previous therapeutic dose of 20 mg 2 times daily will not cause any increased anxiety symptoms. We will try the increased dose for the next month.The patient was asked to report any increase in anxiety symptoms or difficulty sleeping. Patient wasprovided a 1 month supply of the medication at the new dose. He will follow up in 1 month for his next prescription. 2. Depression and anxiety. The patient recently increased the dose of Zoloft to 100 mg. We will not increase this dose further at this time as it has only been a couple days. We did discuss the possibility of adding BuSpar to his medication regimen. Patient feels that his anxiety symptoms have actually improved quite a bit and he would like to hold off on this at this time. Patient is to continue on his current medication regimen and continue to follow up with his therapist at [facility]. The patient will contact his care team to provide an update on his tolerance to the medication changes and regarding his mood in approximately 2 weeks. Urine drug screen ordered. Follow up as previously discussed in 1 month for a lojq-wy-xlii visit. Patient agrees with plan of care. Denies any further questions or concerns. Jami Ross R.N. (Meg)/saud Electronically Signed By: JAMI ROSS APRN On: 09/02/2015 08:02 AM Modified by and Electronically Signed by: JAMI ROSS APRN On: 09/02/2015 08:02 AM Source: [facility] MHSDOLBEYNONRADSYS Document Id: [id number] ILEVER CRANE OPERATOR documented in this encounter Miscellaneous Notes Miscellaneous - Dipika Egan - 09/02/2016 12:01 PM CST Health Maintenance Reminder September 02, 2016 RONANSHAYLA MAGALLANES [place] [id number] Dear RONAN MAGALLANES, We have developed a six-month overview of preventive and recommended services that apply to your unique health care needs. Some may be past due or may be coming due in the next three months. If youhave already scheduled any or all of these services, thank you. We recognize that this may or may not include all of your individualized health care needs; however, we are happy to help you with any and all primary care concerns you may have. Past Due Fasting Lipid Panel: recommended preventive service starting at age 20 It may be possible to bundle some of the above services together to make your visit with us more convenient. Please call [phone] to schedule services that are past due or that may shortly become due (thank you if you have already done so). We will follow up in six months should you have more services to schedule at that time. If you have already received any of the listed past due or upcoming services outside of [facility], please call [phone] to add them to your medical record. You may want to consider contacting your health insurance company to make sure these services are covered and find out if there will be any ovl-po-ajchvf expense. If you have any questions about the services listed above, or if you are no longer receiving care from [facility], please contact us at [phone]. Thank you for partnering to provide you with the best care possible. We encourage you to set up your Patient Online Services account [email or web address], where you can communicate in a convenient way with us, schedule appointments, receive lab results and more. To set up your account, you will need your [facility] Number, which is [id number]. Thank you for choosing us, Jami Ross APRN, R.N. and the [facility], for your health care needs! Sincerely, DIPIKA EGAN Electronic Signature Electronically Signed By: DIPIKA EGAN On: September 02, 2016 This document has images extracted. Source: [facility] POWERCHART Document Id: [id number] Electronically signed by Chiqui [facility] Diet Therapist [id number] at 11/23/2016 4:28 PM CDT Miscellaneous - Jami Ross APRN, R.N. - 08/31/2015 7:18 AM CANTILEVER CRANE OPERATOR Results Notification Document Contains Addenda Addendum by JAMES SANTOS on September 04, 2015 10:03:31 CANTILEVER CRANE OPERATOR Patient notified. Addendum by JAMES SANTOS on 31 August 2015 09:08:46 CANTILEVER CRANE OPERATOR Left message to call back. From: JAMI ROSS APRN To: [facility] 2W Nurse; Sent: 08/31/2015 07:18:11 CANTILEVER CRANE OPERATOR Show up: 08/31/2015 07:16:00 CANTILEVER CRANE OPERATOR Subject: Results Notification Let patient know his UA did come back positive for THC, benzos, and amphetamines. 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 The other two results can be explained by recently prescribed medications. We will recheck at next visit. THC and Benzos should be negative by then as he is reportedly abstinent from marijuana and no further benzodiazepines have been prescribed. If they do come back positive, we will need to reevaluate his controlled substance agreement. Results: Date Result Name Value Ref Range 08/29/2015 17:35 U THC-Bardwell See Comment ng/mL (Cutoff: 20 - ) 08/29/2015 17:35 U Phency-Bardwell Negative ng/mL (Cutoff: 25 - ) 08/29/2015 17:35 U Opiates-Bardwell Negative ng/mL (Cutoff: 300 - ) 08/29/2015 17:35 U KAY Alcohol-Bardwell Negative mg/dL (Cutoff: 30 - ) 08/29/2015 17:35 U Cocaine-Bardwell Negative ng/mL (Cutoff: 150 - ) 08/29/2015 17:35 U Benzo-Conner See Comment ng/mL (Cutoff: 200 - ) 08/29/2015 17:35 U Barbiturates-Bardwell Negative ng/mL (Cutoff: 200 - ) 08/29/2015 17:35 U Amphetamines-Bardwell See Comment ng/mL (Cutoff: 500 - ) [facility] Document Id: [id number] Kathy - Jami Ross APRN R.NKrista - 08/29/2015 5:37 PM CANTILEVER CRANE OPERATOR MARCOS-7 MARCOS-7 Entered On: 08/29/2015 17:37 CANTILEVER CRANE OPERATOR Performed On: 08/29/2015 17:37 CANTILEVER CRANE OPERATOR by JAMI ROSS APRN GAD7 GAD7 Feeling nervous : Nearly every day GAD7 Not able to control worry : Nearly every day GAD7 Worrying too much : More than half the days GAD7 Trouble relaxing : Nearly every day GAD7 Being so restless : More than half the days GAD7 Becoming easily annoyed : More than half the days GAD7 Feeling afraid : Nearly every day GAD7 Total Score : 18 Problems make work, home, or dealing with others : Very difficult JAMI ROSS APRN - 08/29/2015 17:37 CANTILEVER CRANE OPERATOR [facility] Document Id: [id number] CANTILEVER CRANE OPERATOR!11 ILEVER CRANE OPERATOR Kathy - Jami Ross APRN R.Baldev - 08/29/2015 5:37 PM CANTILEVER CRANE OPERATOR PHQ-9 PHQ-9 Entered On: 08/29/2015 17:38 CANTILEVER CRANE OPERATOR Performed On: 08/29/2015 17:37 CANTILEVER CRANE OPERATOR by JAMI ROSS APRN PHQ-9 Little interest or pleasure in doing things : Nearly every day Feeling down, depressed, or hopeless : Nearly every day Trouble falling or staying asleep, or sleeping too much : More than half the days Feeling tired or having little energy : More than half the days Poor appetite or overeating : Several days Feeling bad about yourself or that you are a failure : Nearly every day Trouble concentrating on things : Nearly every day Moving or speaking slowly; restless or fidgety : More than half the days Thoughts that you would be better off /hurting self : Nearly every day PHQ-9 Calculated Score : 22 Problems make work, home, or dealing with others : Very difficult JAMI ROSS APRN - 08/29/2015 17:37 CANTILEVER CRANE OPERATOR Source: [employer] Document Id: [id number] CANTILEVER CRANE OPERATOR!13 ILEVER CRANE OPERATOR Miscellaneous - Jami Ross APRN, R.N. - 08/29/2015 5:36 PM CANTILEVER CRANE OPERATOR Ambulatory Patient Summary [facility] [address] [place] [address] [id number] Visit Information Name: RONAN MAGALLANES [facility] Number: [id number] Current Date: 08/29/2015 17:36:04 Physicians Attending Provider: JAMI ROSS APRN Primary Care Provider: JAMI ROSS APRN RONAN MAGALLANES has been given the following [...] Instructions/Comments/Notes for Patient Medication Changes/Routing dextroamphetamine-amphetamine (Adderall 20 mg oral tablet) 1 Tablet(s), Oral, two times a day AM & Noon This is a CHANGE Routed to Printer diphenhydrAMINE (ZzzQuil) Oral, once a day (at bedtime) as needed for Sleep / Anxiety melatonin (Melatonin 10 mg oral capsule) 1 cap, Oral, once a day (at bedtime) sertraline (Zoloft 100 mg oral tablet) 1 Tablet(s), Oral, once a day Stop Taking the Following Medications: LORazepam (Ativan 0.5 mg oral tablet) Medication list as of 08-29-15 17:36 Attention: If you have any medications at home that are not on this list, DO NOT take them until youcontact your provider for clarification. Give a copy of your medication list to your primary care provider. Update your medication list any time medications or doses are changed and carry your medication list at all times in case of emergency. Electronically Signed By: JAMI ROSS APRN Signed On:29-AUG-2015 17:35:55 Your Allergies & Intolerances Substance Reaction Symptoms Category Comments No Known Allergies Drug Your Problem List Problem Status Onset Comments ADD. Active 01/01/2013 Your Upcoming Appointments Date Time Location Provider No Appointments found Attention: Contact your local Clinic if further [...] if you dont have one. Go to [email or web address] and click on Create Your Account. Then, follow the directions to complete the online form. Youll be asked for your [facility] number which you can find at the top of this document. Your Goals/Additional instructions: Source: [facility] POWERCHART Document Id: [id number] ILEVER CRANE OPERATOR Miscellaneous - Jami Ross APRN, R.N. - 08/29/2015 5:36 PM CANTILEVER CRANE OPERATOR Ambulatory Discharge Medication List [facility] [address] [place] [address] [id number] Visit Information Name: RONAN MAGALLANES [facility] Number: [id number] Visit Date: 08/29/2015 17:36:03 Attending Provider: JAMI ROSS APRN Primary Care Provider: JAMI ROSS APRN RONAN MAGALLANES has been given the following list of medications: Your Medications It is important to take your medications as directed. Use a pill box or chart to help remind you to take your medications. Please let your doctor or nurse know if you have problems taking your medications. Medication/Strength How to Take Indications/Special Instructions/Comments/Notes for Patient Medication Changes/Routing dextroamphetamine-amphetamine (Adderall 20 mg oral tablet) 1 Tablet(s), Oral, two times a day AM & Noon This is a CHANGE Routed to Printer diphenhydrAMINE (ZzzQuil) Oral, once a day (at bedtime) as needed for Sleep / Anxiety melatonin (Melatonin 10 mg oral capsule) 1 cap, Oral, once a day (at bedtime) sertraline (Zoloft 100 mg oral tablet) 1 Tablet(s), Oral, once a day Stop Taking the Following Medications: LORazepam (Ativan 0.5 mg oral tablet) Medication list as of 08-29-15 17:36 Attention: If you have any medications at home that are not on this list, DO NOT take them until youcontact your provider for clarification. Give a copy of your medication list to your primary care provider. Update your medication list any time medications or doses are changed and carry your medication list at all times in case of emergency. Electronically Signed By: JAMI ROSS APRN Signed On:29-AUG-2015 17:35:55 Additional Information: Source: [facility] POWERCHART Document Id: [id number] ILEVER CRANE OPERATOR Miscellaneous - Vivek Booth C.MBrigitte - 08/29/2015 4:55 PM CST Adult Network Desktop Support Specialist Intake/History Adult Network Desktop Support Specialist Intake/History Entered On: 08/29/2015 16:58 CANTILEVER CRANE OPERATOR Performed On: 08/29/2015 16:55 CANTILEVER CRANE OPERATOR by VIVEK BOOTH [facility] Intake Chief Complaint : Med. f/up Peripheral Pulse Rate : 96 /min Systolic Blood Pressure : 122 mmHg Diastolic Blood Pressure : 82 mmHg NIBP Mean : 95 mmHg BP Location : Right upper extremity Blood Pressure Cuff Size : Regular Actual Weight : 69.9 kg(Converted to: 154 lb 2 oz) Dosing Weight Clinic : 69.9 kg VIVEK BOOTH [facility] - 08/29/2015 16:55 CANTILEVER CRANE OPERATOR General Info Information Given By : Patient Preferred Communication Mode : Verbal Languages : Vincentian Is Patient Female and 13-50 no hysterectomy : No VIVEK BOOTH [facility] - 08/29/2015 16:55 CANTILEVER CRANE OPERATOR Subjective Pain Symptoms : No VIVEK BOOTH [facility] - 08/29/2015 16:55 CANTILEVER CRANE OPERATOR Dependent Habits Exposure to Tobacco Smoke : Patient smokes Smoking Status : Current every day smoker Tobacco 2A : Yes Tobacco Use/Currently Using : Yes Tobacco Use/Last 30 Days : Yes Tobacco Use/Last 12 months : Yes Type : Cigarettes: Less than 20 per day Tobacco Use/Advised to Quit : No VIVEK BOOTH [facility] - 08/29/2015 16:55 CANTILEVER CRANE OPERATOR Caffeine Use Grid Caffeine Use : Current Type : Coffee, Soft drinks Frequency : Daily VIVEK BOOTH [facility] - 08/29/2015 16:55 CANTILEVER CRANE OPERATOR Source: [facility] [employer] Document Id: [id number] CANTILEVER CRANE OPERATOR!32 ILEVER CRANE OPERATOR documented in this encounter Plan of Treatment Not on filedocumented as of this encounter Procedures Procedure Name Priority Date/Time Associated Comments Diagnosis CARBOXY-THC Routine 08/29/2015 5:35 Results for this CONFIRMATION, U PM CANTILEVER CRANE OPERATOR procedure ar e in the results section. CONFIRMED DRUG ABUSE Routine 08/29/2015 5:35 Resu lts for this PANEL, U PM CANTILEVER CRANE OPERATOR procedure are i n the results section. BENZODIAZEPINES Routine 08/29/2015 5:35 Results f or this CONFIRMATION, U PM CANTILEVER CRANE OPERATOR procedure ar e in the results section. AMPHETAMINES Routine 08/29/2015 5:35 Results for this CONFIRMATION, U PM CANTILEVER CRANE OPERATOR procedure ar e in the results section. documented in this encounter Results Benzodiazepines Confirmation, Urine (08/29/2015 5:35 PM CANTILEVER CRANE OPERATOR) [facility] Method Time Signature HX U Nordiaz Negative Cutoff: POWERCHART GC/MS-Bardwell 100 NGML Oxazepam, 362 Cutoff: POWERCHART Screen, Urine 100 NGML Lorazepam-by Negative Cutoff: POWERCHART GC/MS 100 NGML Temazepam UR 119 Cutoff: POWERCHART QT 100 NGML HXU Fluraz Negative Cutoff: POWERCHART GC/MS-Bardwell 100 NGML 7-Aminoclonaze Negative Cutoff: POWERCHART reed, Urine 100 NGML Alpha Negative Cutoff: POWERCHART OH-Alprazolam- 100 NGML by GC/MS 7-Aminoflunitr See Comment Cutoff: POWERCHART azepam, Urine 50 NGML Comment: Unknown interfering substance present; u nable to obtain results. Alpha GC-Dxzwanwmt-cq GC/MS Negative Cutoff: 100 NGML POWERCHART Interpretation Positive. POWERCHART Comment: ADDITIONAL INFORMATIO N This report is intended for use in clini rosemarie monitoring and management of patients. ??It is not inte nded for use in employment-related testing. Test Performed by: [place] [address] Electrical High Tension Tester: Rubens Alonzo II, M.D., Ph.D. Specimen Anatomical Collection Method Collection Time Receive d Time (Source) Location / / Volume Laterality Urine 08/29/2015 5:35 PM 6 CANTILEVER CRANE OPERATOR 10:16 PM CANTILEVER CRANE OPERATOR Historical Provider LAB URINE ORDERABLES Performing Organization Address City/State/ZIP Code Phon e Number POWERCHART Amphetamines Confirmation, Urine (08/29/2015 5:35 PM CANTILEVER CRANE OPERATOR) [facility] Method Time Signature Amphetamines, U 9130 Cutoff: POWERCHART 25 NGML Phentermine-by Negative Cutoff: POWERCHART LC-MS/MS 25 NGML HX U Methamp Negative Cutoff: POWERCHART GC/MS-Bardwell 25 NGML Pseudoephedrine/Ep Negative Cutoff: POWERCHART hedrine-by 25 NGML LC-MS/MS MDA (Ecstasy Negative Cutoff: POWERCHART metabolite)-by 25 NGML LC-MS/MS HX U Amph MDMA Negative Cutoff: POWERCHART [facility] NGML Interpretation Positive. POWERCHART Comment: ADDITIONAL INFORMATIO N This report is intended for use in clini rosemarie monitoring and management of patients. ??It is not inte nded for use in employment-related testing. Test Performed by: [facility] [place] [address] Electrical High Tension Tester: Rubens Alonzo II, M.D., Ph.D. Specimen Anatomical Collection Method Collection Time Receive d Time (Source) Location / / Volume Laterality Urine 08/29/2015 5:35 PM 6 CANTILEVER CRANE OPERATOR 10:16 PM CANTILEVER CRANE OPERATOR Historical Provider LAB URINE ORDERABLES Performing Organization Address [facility] Phon e Number DESIREE Carboxy-Tetrahydrocannabinol (THC) Confirmation, Urine (08/29/2015 5:35 PM CANTILEVER CRANE OPERATOR) Component Value Ref Test Analysis Performed At [facility] Range Method Time Signature Tetrahydrocannabinol 37 Cutoff: POWERCHAR T 3.0 NGML Interpretation Positive. POWERCHART Comment: ADDITIONAL INFORMATIO N This report is intended for use in clini rosemarie monitoring and management of patients. ??It is not inte nded for use in employment-related testing. Test Performed by: [facility] [facility] [place] [phone] Electrical High Tension Tester: Rubesn Alonzo II, M.D., Ph.D. Specimen Anatomical Collection Method Collection Time Receive d Time (Source) Location / / Volume Laterality Urine 08/29/2015 5:35 PM 6 CANTILEVER CRANE OPERATOR 10:16 PM CANTILEVER CRANE OPERATOR Historical Provider LAB URINE ORDERABLES Performing Organization Address [facility] Phon e Number MARQUISCHART Drug Abuse Survey with Confirmation, Urine (08/29/2015 5:35 PM CANTILEVER CRANE OPERATOR) [facility] gist Method Time Signature Alcohol Negative Cutoff: POWERCHART 30 MGDL HX U See Comment Cutoff: POWERCHART Amphetamines-M 500 NGML john paul Comment: RESULT: Presumptive Positive Drug confirmation to follow. ??Presumpti ve Positive means that the screening method is positive, b ut the test needs to be run by a confirmatory method befor e being finalized. Barbiturates Negative Cutoff: 200 NGML POWERCHART HX U Benzo-Conner See Comment Cutoff: 200 NGML POWER CHART Comment: RESULT: Presumptive Positive Drug confirmation to follow. ??Presumpti ve Positive means that the screening method is positive, b ut the test needs to be run by a confirmatory method befor e being finalized. Cocaine Negative Cutoff: 150 NGML POWERCHART HXU Opiates-Conner Negative Cutoff: 300 NGML POWERC GOLDEBRG HX U Phency-Bardwell Negative Cutoff: 25 NGML POWERCH ART Tetrahydrocannabinol See Comment Cutoff: 20 NGML P OWERCHART Comment: RESULT: Presumptive Positive Drug confirmation to follow. ??Presumpti ve Positive means that the screening method is positive, b ut the test needs to be run by a confirmatory method befor e being finalized. ADDITIONAL INFORMATIO N This report is intended for use in clini rosemarie monitoring or management of patients. ??It is not inte nded for use in employment-related testing. Test Performed by: [place] [address] Electrical High Tension Tester: Rubens Alonzo II, M.D., Ph.D. Specimen (Source) Anatomical Collection Method Collection Time Re ceived Time Location / / Volume Laterality Urine 08/29/2015 5:35 PM CANTILEVER CRANE OPERATOR Jami Ross APRN, C.N.P., M.S. LAB URINE O RDERABLES Performing Organization Address City/State/ZIP Code Phon e Number POWERCHART documented in this encounter Visit Diagnoses Not on filedocumented in this encounter Additional Health Concerns Assessment Noted Time PHQ-9 Depression Total Score: 22 08/29/2015 5:37 PM CS T documented as of this encounter
--- OUTSIDE RECORDS SUMMARY | 2022-05-17 14:25 | XMS_ITS | Encounter Summary ---
:1985 Author Organization [facility] Address [address] [place] [address] Care Team Providers Name Role Phone Zeke Duncan APRN, C.N.P., D.N.P., R.N. Primary Care Olya dukes Unavailable Reason for Visit Reason Comments Follow-up concussion Appointment Request (Routine) - Closed Specialty Diagnoses / Procedures Referred By Contact Refer red To Contact Family Medicine Referral ID Status Reason Start Date Expiration Date Visits Requ ested Visits Authorized [id number] Closed 05/08/2017 11/04/2017 1 1 Encounter Details Date Type Department Care Team Description 05/13/2017 Office Visit Department of Family Paty Aj Concussion Syndrome (Primary Dx); Medicine, [place] Forrest M.D. Blurred Vision; Clinic, in [place], [address] Eye Left [place], [place] [address] [address] [place], [place] [phone] (Work) [phone] Social History Tobacco Use Types Packs/Day Years Used Date Smoking Tobacco: Every Day E-cigarettes Smokeless Tobacco: Never Alcohol Use Standard Drinks/Week Comments Yes 0 (1 standard drink = 0.6 oz pure alcoho l) monthly or less Sex Assigned at Date Recorded Not on file documented as of this encounter Last Filed Vital Signs Vital Sign Reading Time Taken Comments Blood Pressure 106/68 05/13/2017 1:45 PM [employer] Pulse 80 05/13/2017 1:45 PM [employer] Temperature - - Respiratory Rate 16 05/13/2017 1:45 PM [employer] Oxygen Saturation - - Inhaled Oxygen Concentration - - Weight 74.3 kg (163 lb 12.8 oz) 05/13/2017 1:45 PM [employer] [employer] [employer] Height 182 cm (5' 11.65) 05/13/2017 1:45 PM [employer] Body Mass Index 22.43 05/13/2017 1:45 PM [employer] documented in this encounter Progress Notes Paty Aj M.D. - 05/13/2017 2:00 PM CST SUBJECTIVE CHIEF COMPLAINT / REASON FOR VISIT Ronan Rolon is a 31 y.o. male who presents for evaluation of Follow-up (concussion). HISTORY OF PRESENT ILLNESS Patient is a 31-year-old male who presents today for Emergency Department follow-up of his concussion. He was initially seen in the [facility] on May 02 when he hit his head on the refrigerator door while at work at [employer]. He did not have loss of consciousness but felt dizzy and sick. He had a head CT done there which he was told possibly showed some bruising and was diagnosed with a severe concussion. He has persisting light sensitivity, mostly in his left eye and has been wearing sunglasses. He occasionally gets headaches that are centered over his left eye. He describes them as a throbbing sensation. They are intermittent. They seem to be brought on and worsened by light. He is able to watch TV at night and uses phone when the light is deemed. 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 He would really like to be able to return to work. The following portions of the patient's history were reviewed and updated as appropriate: allergies,current medications, medical history and problem list. OBJECTIVE Vitals: 05/13/17 1345 BP: 106/68 Pulse: 80 Resp: 16 PHYSICAL EXAM General: alert, no acute distress Eyes: sclera clear and without discharge ENT: TMs WNL bilaterally, MMM, no oral erythema or lesions Neck: supple and without lymphadenopathy, thyroid WNL Cardiac: RRR, normal S1 and S2, no murmurs Lungs: CTAB, no crackles or wheezes Abdomen: soft, nontender, nondistended, BS+ Extremities: warm and well perfused, no LE edema Neuro: Cranial nerves 2-12 intact, normal rapid alternating movements, normal heel to coon testing, normal Romberg, no focal deficit Psych: normal mood and affect ASSESSMENT / PLAN #1 Post Concussion Syndrome #2 Blurred Vision #3 Pain Eye Left We discussed the diagnosis and importance of slowly returning to his regular activities. Will trial him at work for 2 hour shifts during non busy times. He should limit his lifting. He should do where his son losses at work. He should be allowed brain breaks if needed. Printed patient education handout was provided. Work excuse was provided. A referral to Ophthalmology was placed given that his eye symptoms are unilateral. Outside records were requested. A return visit for 1-2 weeks was ordered. Other orders - Family Medicine office visit (clinic) - [facility]; Future - Ophthalmology - General consult (clinic); Future [employer] documented in this encounter Plan of Treatment Not on filedocumented as of this encounter Visit Diagnoses Diagnosis Post Concussion Syndrome - Primary Blurred Vision Pain Eye Left documented in this encounter Additional Health Concerns Assessment Noted Time PHQ-9 Depression Total Score: 10 03/05/2017 8:09 AM CD T documented as of this encounter Care Teams Sharepoint Net Developer Relationship Specialty Start Date End Date Zeke Duncan, PCP - General Certified Nurse Practitioner 04/3003/10/18 KIKI, C.N.P., D.N.P., R.N. documented as of this encounter
--- OUTSIDE RECORDS SUMMARY | 2022-05-17 14:25 | XMS_ITS | Encounter Summary ---
:1985 Author Organization [facility] Address [address] [place] [address] Care Team Providers Name Role Phone Unavailable Primary Care Provider Unavailable Encounter Details Date Type Department Care Team Description 08/03/2015 Hospital Encounter HX NO MAPPING Petr Boyle M.D. [address] [place], [place] [phone] (Wo rk) Social History Tobacco Use Types [...]
--- OUTSIDE RECORDS SUMMARY | 2022-05-17 14:25 | XMS_ITS | Encounter Summary ---
:1985 Author Organization [facility] Address [address] [place] [address] Care Team Providers Name Role Phone Zeke Duncan APRN, C.N.P., D.N.P., R.N. Primary Care P ernst Unavailable Reason for Visit Reason Onset Date Comments possible Rx 05/15/2017 Encounter Details Date Type Department Care Team Description 05/15/2017 Clinical Communication Department of [facility] Zeke Duncan Rx Medicine, Donavan Mccoy APRN, C.N.PKrista, Clinic, in [place], [place].N.PKrista, R.N. [place] [address] [place] [address] Social History Tobacco Use Types Packs/Day Years Used Date Smoking Tobacco: Every Day E-cigarettes Smokeless Tobacco: Never Alcohol Use Standard Drinks/Week Comments Yes 0 (1 standard drink = 0.6 oz pure alcoho l) monthly or less Sex Assigned at Date Recorded Not on file documented as of this encounter Miscellaneous Notes Telephone Encounter - Aislinn Rodriguez L.PEren - 05/23/2017 1:58 PM COLLAR WORKER Notified patient that there is a script and he should not drink alcohol with. AR WORKER Telephone Encounter - Hui Gallo L.P.N. - 05/20/2017 2:11 PM CST Left message to call back. AR WORKER Telephone Encounter - Cheri Nichols L.P.N. - 05/19/2017 6:08 PM CST Left message to call back AR WORKER Telephone Encounter - Keisha Banuelos - 05/19/2017 10:14 AM CST Pt called in again waiting to hear back from someone re: getting the antibiotic. Pt can be reached at [phone]. AR WORKER Telephone Encounter - Ligia Whitt - 05/15/2017 3:54 PM CST Ronan called. His girlfriend was just seen and given an Rx for trichomoniasis. He is wondering if he can get an Rx to be treated also. He would like it sent to [facility] in [place]. He is aware that Zeke is out of the office until the so would like another provider to address this as soon as possible. AR WORKER documented in this encounter Plan of Treatment Not on filedocumented as of this encounter Visit Diagnoses Not on filedocumented in this encounter Additional Health Concerns Assessment Noted Time PHQ-9 Depression Total Score: 10 03/05/2017 8:09 AM CD T documented as of this encounter Care Teams Survey Methodologist Relationship Specialty Start Date End Date Zeke Duncan, PCP - General Certified Nurse Practitioner 04/3003/10/18 NURSE TECHNICIAN, C.N.P., D.N.P., R.N. documented as of this encounter
--- OUTSIDE RECORDS SUMMARY | 2022-05-17 14:25 | XMS_ITS | Encounter Summary ---
:1985 Author Organization [facility] Address [address] [place] [address] Care Team Providers Name Role Phone Unavailable Primary Care Provider Unavailable Encounter Details Date Type Department Care Team Description 02/08/2014 Hospital Encounter HX NO MAPPING Jonathon Strong III, M.D. (Skip), M.P.H. [address] [place], [place] [address] (Wo rk) Social History [...]
--- OUTSIDE RECORDS SUMMARY | 2022-05-17 14:25 | XMS_ITS | Encounter Summary ---
:1985 Author Organization [facility] Address [address] [place] [address] Care Team Providers Name Role Phone Unavailable Primary Care Provider Unavailable Encounter Details Date Type Department Care Team Description 12/18/2015 Hospital Encounter HX NO MAPPING Marjorie Vasquez P.A. Social History Tobacco Use Types Packs/Day Years Used Date Smoking Tobacco: Never Assessed Sex Assigned at Date Recorded Not on file documented as of this encounter Medications at Time of Discharge Medication Sig Dispensed Refills Start Date End Date DIPHENHYDRAMINE HCL ORAL Take by mouth at 0 08/2805/13/2017 bedtime as needed. melatonin 10 mg capsule Take 1 capsule by 0 08/2805/13/2017 mouth at bedtime. documented as of this encounter Plan of Treatment Not on filedocumented as of this encounter Visit Diagnoses Not on filedocumented in this encounter Additional Health Concerns Assessment Noted Time PHQ-9 Depression Total Score: 22 08/29/2015 5:37 PM CS T documented as of this encounter
--- OUTSIDE RECORDS SUMMARY | 2022-05-17 14:25 | XMS_ITS | Encounter Summary ---
:1985 Author Organization [facility] Address [address] [place] [address] Care Team Providers Name Role Phone Zeke Duncan APRN, C.N.P., D.N.P., R.N. Primary Care P ernst Unavailable Encounter Details Date Type Department Care Team Description 05/06/2017 Clinical Communication Department of Zeke Akbar [place] M, APRN, C.N.P., Clinic, in [place], JazzNKristaPKrista, R.N. [place] [id number] [address] [address] Social History Tobacco Use Types Packs/Day Years Used Date Smoking Tobacco: Every Day Sex Assigned at Date Recorded Not on file documented as of this encounter Miscellaneous Notes Telephone Encounter - Josefa Wisdom - 05/06/2017 3:48 PM CST Patient calling about from a current visit in the ER in [facility] from yesterday 05/05/2017. Patient was told that he would be getting a call back from his provider for a follow up appointment and hasnot heard anything. Was to be seen in 3 days. Please call back to advise of status. ORATE RECRUITER documented in this encounter Plan of Treatment Not on filedocumented as of this encounter Visit Diagnoses Not on filedocumented in this encounter Additional Health Concerns Assessment Noted Time PHQ-9 Depression Total Score: 10 03/05/2017 8:09 AM CD T documented as of this encounter Care Teams Wine Fermenter Relationship Specialty Start Date End Date Zeke Duncan, PCP - General Certified Nurse Practitioner 04/3003/10/18SepN, Tammie., Vida.Lon.P., R.N. documented as of this encounter
--- OUTSIDE RECORDS SUMMARY | 2022-05-17 14:25 | XMS_ITS | Encounter Summary ---
:1985 Author Organization [facility] Address [address] [place] [address] Care Team Providers Name Role Phone Unavailable Primary Care Provider Unavailable Encounter Details Date Type Department Care Team Description 07/02/2013 Hospital Encounter HX [facility] Oscar Becerra M.D. [address] [place] [address] (Wo rk) Social History Tobacco Use Types Packs/Day Years Used Date Smoking Tobacco: Never Assessed Sex Assigned at Date Recorded Not on file documented as of this encounter Miscellaneous Notes Miscellaneous - Hortensia Jones - 07/29/2013 2:23 PM CST Med Management Document Contains Addenda Addendum by FLORES GRIFFIN MD on 29 July 2013 16:21:05 TIRE TRIMMER HAND From: FLORES GRIFFIN MD Sent: 07/29/2013 16:21:04 TIRE TRIMMER HAND Subject: RE:Med Management Approved Order:dextroamphetamine-amphetamine (Adderall 20 mg oral tablet) 1 tab(s) PO 2xDay AM & Noon Qty: 60 tab(s) Refills: 0 Substitutions Allowed Print - [id number] Signed by FLORES GRIFFIN MD 07/29/2013 16:20:45 From: HORTENSIA JONES To: FLORES GRIFFIN MD; Sent: 07/29/2013 14:23:03 TIRE TRIMMER HAND Subject: Med Management On hold pending signature Order:dextroamphetamine-amphetamine (Adderall 20 mg oral tablet) 1 tab(s) PO 2xDay AM & Noon Qty: 60 tab(s) Refills: 0 Substitutions Allowed Print - [email or web address] Caller is: ( ) Patient ( ) Mother ( ) Father ( ) Spouse ( ) Daughter ( ) Son ( sergei orellana ) Pharmacy ( ) Other: Physician: Patient MRN #: Reason for Call: Message: last seen 07/02/13 last refill 07/02/13 Advice/Action: Source used: ( ) Verbalizes understanding [...] back cell phone number ( ) Source: [facility] POWERCHART Document Id: [id number] Electronically signed by Conversion, [facility] Transition Mgr Rn [id number] at 11/26/2016 2:41 PM CDT documented in this encounter Plan of Treatment Not on filedocumented as of this encounter Visit Diagnoses Not on filedocumented in this encounter Additional Health Concerns Assessment Noted Time PHQ-9 Depression Total Score: 1 02/26/2012 12:00 PM CD T documented as of this encounter
--- OUTSIDE RECORDS SUMMARY | 2022-05-17 14:25 | XMS_ITS | Encounter Summary ---
:1985 Author Organization [facility] Address [address] [place] [address] Care Team Providers Name Role Phone Unavailable Primary Care Provider Unavailable Encounter Details Date Type Department Care Team Description 06/08/2013 Hospital Encounter HX [facility] Maryellen Lau M.D. [address] [place], [place] [address] (Wo rk) Social History Tobacco Use Types Packs/Day Years Used Date Smoking Tobacco: Never Assessed Sex Assigned at Date Recorded Not on file documented as of this encounter Last Filed Vital Signs Vital Sign Reading Time Taken Comments Blood Pressure 120/70 06/08/2013 5:55 PM HANDBAG STITCHER Pulse 84 06/08/2013 5:55 PM HANDBAG STITCHER Temperature - - Respiratory Rate 16 06/08/2013 5:55 PM HANDBAG STITCHER Oxygen Saturation - - Inhaled Oxygen Concentration - - Weight 71.4 kg (157 lb 6.5 oz) 06/08/2013 5:55 PM HANDBAG STITCHER Height - - Body Mass Index 21.09 02/26/2012 10:00 AM CDT documented in this encounter Progress Notes Ashley Lau M.D. - 06/08/2013 5:38 PM CST [id number] CHIEF COMPLAINT/REASON FOR VISIT Sinus pressure, congestion, left ear pain. HISTORY OF PRESENT ILLNESS Mr. Magallanes is a 27-year-old white male who had a history of PE tubes when he was 4. He has not had ear problems in his adult life. He developed sinus pressure congestion a week to a week and a half ago, but now has fairly significant left ear discomfort and very thick nasal drainage. He has some facial headache. He is not running any fevers. He has no sore throat, and he has no chest symptoms. MEDICATIONS Please see today's EMR. ALLERGIES Please see today's EMR. VITAL SIGNS Please see today's EMR. PHYSICAL EXAMINATION Fairly well-appearing young man. HEENT: Right TM is negative. Left TM actually does have fluid, somewhat bulging, but no erythema as of yet. Neck nodes are negative. Oropharynx shows a thick purulent drainage in the posterior oropharynx. Positive maxillary sinus tenderness bilaterally and symmetrically. IMPRESSION/REPORT/PLAN 1. Acute probable bacterial sinusitis. 2. Left serous otitis, at risk for secondary infection. PLAN: 1. Amoxicillin 1000 mg twice daily for the next 10 days. 2. Sinus rinses, Mucinex warm packs to the face, all discussed with patient. 3. Follow up as needed new symptoms or nonresolution. Ashley Lau M.D./saud Electronically Signed By: ASHLEY LAU MD On: 06/13/2013 08:18 AM Source: [facility] MHSDOLBEYNONRADSYS Document Id: [id number] BAG STITCHER documented in this encounter Miscellaneous Notes Miscellaneous - Ashley Lau M.D. - 06/08/2013 6:24 PM CST Ambulatory Patient Summary [facility] [address] [place] [address] Visit Information Name: RONAN MAGALLANES [facility] Number: [id number] Current Date: 06/08/2013 18:24:48 Physicians Attending Provider: ASHLEY LAU MD Primary Care Provider: PRIETO REDMOND MD SONA RONAN has been given the following list of [...] two times a day AM & Noon Stop Taking the Following Medications: traMADol (Ultram 50 mg oral tablet) Medication list as of 06-08-13 18:24 Attention: If you have any medications at home that are not on this list, DO NOT take them until youcontact your provider for clarification. Give a copy of your medication list to your primary care provider. Update your medication list any time medications or doses are changed and carry your medication list at all times in case of emergency. Your Allergies & Intolerances Substance Reaction Symptoms Category Comments No Known Allergies Drug Your Problem List Problem Status Onset Comments ADD. Active 01/01/2013 Your Upcoming Appointments Date Time Location Reason Provider No Appointments found Attention: Contact your local Clinic if further appointment detail needed. Your Goals/Additional instructions: Source: [facility] POWERComAbility Document Id: [id number] BAG STITCHER Miscellaneous - Ashley Lau M.D. - 06/08/2013 6:24 PM CST Ambulatory Depart Summary [facility] [address] [place] [address] Visit Information Name: RONAN MAGALLANES [facility] Number: [id number] Visit Date: 06/08/2013 18:24:48 Attending Provider: ASHLEY LAU MD Primary Care Provider: PRIETO REDMOND MD RONAN [...] two times a day AM & Noon Stop Taking the Following Medications: traMADol (Ultram 50 mg oral tablet) Medication list as of 06-08-13 18:24 Attention: If you have any medications at home that are not on this list, DO NOT take them until youcontact your provider for clarification. Give a copy of your medication list to your primary care provider. Update your medication list any time medications or doses are changed and carry your medication list at all times in case of emergency. Additional Information: Source: [facility] POWERCHART Document Id: [id number] BAG STITCHER Miscellaneous - Anthony Mcqueen RKristaN. - 06/08/2013 5:55 PM CST Adult Acetone Button Paster Intake/History Document Has Been Updated Adult Acetone Button Paster Intake/History Entered On: 06/08/2013 17:58 HANDBAG STITCHER Performed On: 06/08/2013 17:55 HANDBAG STITCHER by ANTHONY MCQUEEN Intake Chief Complaint : sinus pressure, congestion, green nasal drainage and left ear discomfort. symptomsstarted approx 1 week ago Temperature Oral : 36.9 DegC(Converted to: 98.4 DegF) Peripheral Pulse Rate : 84 /min Respiratory Rate : 16 /min Systolic Blood Pressure : 120 mmHg Diastolic Blood Pressure : 70 mmHg NIBP Mean : 87 mmHg BP Location : Right upper extremity Blood Pressure Cuff Size : Large Actual Weight : 71.4 kg(Converted to: 157 lb 7 oz) Dosing Weight Clinic : 71.4 kg ANTHONY MCQUEEN - 06/08/2013 17:55 HANDBAG STITCHER General Info Information Given By : Patient Preferred Communication Mode : Verbal Languages : Spanish ANTHONY MCQUEEN - 06/08/2013 17:55 HANDBAG STITCHER Subjective Pain Symptoms : No ANTHONY MCQUEEN - 06/08/2013 17:55 HANDBAG STITCHER Dependent Habits Tobacco Use/Currently Using : Yes Tobacco Use/Advised to Quit : Yes Exposure to Tobacco Smoke : Patient smokes Smoking Status : Current every day smoker ANTHONY MCQUEEN - 06/08/2013 17:55 HANDBAG STITCHER Tobacco Use Grid Type : Cigarettes Cigarette Use Packs/Day : 0.5 ANTHONY MCQUEEN - 06/08/2013 17:55 HANDBAG STITCHER Caffeine Use Grid Caffeine Use : Current Type : Coffee, Soft drinks Frequency : Daily ANTHONY MCQUEEN - 06/08/2013 17:55 HANDBAG STITCHER Allergy (As Of: 06/08/2013 17:58:44 HANDBAG STITCHER) Allergies (Active) NKA Estimated Onset Date: Unspecified ; Created By: JUNIOR DE LEON; Reaction Status: Active ; Category: Drug ; Substance: NKA ; Type: Allergy ; Updated By: JUNIOR DE LEON; Source: Patient ; Reviewed Date: 01/01/2013 9:50 CDT Source: [facility] [place] Document Id: [id number] HANDBAG STITCHER!33 BAG STITCHER documented in this encounter Plan of Treatment Not on filedocumented as of this encounter Visit Diagnoses Not on filedocumented in this encounter Additional Health Concerns Assessment Noted Time PHQ-9 Depression Total Score: 1 02/26/2012 12:00 PM CD T documented as of this encounter
--- OUTSIDE RECORDS SUMMARY | 2022-05-17 14:25 | XMS_ITS | Encounter Summary ---
:1985 Author Organization [facility] Address [address] [place] [address] Care Team Providers Name Role Phone Unavailable Primary Care Provider Unavailable Encounter Details Date Type Department Care Team Description 12/01/2013 Hospital Encounter HX NO MAPPING Franklyn Hensley M.D. [address] [place], [place] [address] (Wo rk) Social History Tobacco Use Types Packs/Day Years Used Date Smoking Tobacco: Never Assessed Sex Assigned at Date Recorded Not on file documented as of this encounter Plan of Treatment Not on filedocumented as of this encounter Procedures Procedure Name Priority Date/Time Associated Diagnosis Comme nts CT CERVICAL SPINE Routine 12/01/2013 6:04 PM Resu lts for this WITHOUT IV CONTRAST CDT procedur e are in the results section. documented in this encounter Results CT Cervical Spine without IV Contrast (12/01/2013 6:04 PM CDT) Anatomical Region Laterality Modality Cervical Spine N/A Computed Tomography Specimen (Source) Anatomical Collection Method Collection Time Re ceived Time Location / / Volume Laterality 12/01/2013 6:04 PM CDT Addenda Addendum by Provider, Kristi Dawson o n 12/01/2013 6:04 PM CDT RAD^^^OW CT Cervical Spine w o contrast 12/01/2013 18:04:31 Impressions 12/01/2013 6:31 PM CDT ??Reversal the central cervical lordosis which may be due to patient positioning and/or muscular s pasm. Narrative 12/01/2013 6:31 PM CDT EXAM: ??CT Cervical Spine w/o contrast AGE: ??28 years old. GENDER: ??Male. INDICATION: ??neck pain; not otherwise s pecified. COMPARISON: ??None. FINDINGS: ??Reversal the central cervica l lordosis which may be due to patient positioning and/or muscular spas m. No appreciable osseous injury of the cer vical spine. No masses. If there is high index concern for possi ble underlying ligamentous or disc space disease or injury dedicated M RI of the cervical spine may be helpful. Procedure Note Demetri Vidales M.D. / Provider, Rishi valdez M.D. - 11/08/2016 EXAM: CT Cervical Spine w/o contrast AGE: [age] years old. GENDER: Male. INDICATION: neck pain; not otherwise spe cified. COMPARISON: None. FINDINGS: Reversal the central cervical lordosis which may be due to patient positioning and/or muscular spas m. No appreciable osseous injury of the cer vical spine. No masses. If there is high index concern for possi ble underlying ligamentous or disc space disease or injury dedicated M RI of the cervical spine may be helpful. IMPRESSION: Reversal the central cervica l lordosis which may be due to patient positioning and/or muscular s pasm. Historical Provider IMG CT PROCEDURES documented in this encounter Visit Diagnoses Not on filedocumented in this encounter Additional Health Concerns Assessment Noted Time PHQ-9 Depression Total Score: 1 02/26/2012 12:00 PM CD T documented as of this encounter
--- OUTSIDE RECORDS SUMMARY | 2022-05-17 14:25 | XMS_ITS | Encounter Summary ---
:1985 Author Organization [facility] Address [address] [place] [address] Care Team Providers Name Role Phone Unavailable Primary Care Provider Unavailable Encounter Details Date Type Department Care Team Description 01/20/2015 Hospital Encounter HX [facility] Keith Sarmiento, KIKI, C.N.P. [address] [place] [address] (Wo rk) Social History Tobacco Use Types Packs/Day Years Used Date Smoking Tobacco: Never Assessed Sex Assigned at Date Recorded Not on file documented as of this encounter Last Filed Vital Signs Vital Sign Reading Time Taken Comments Blood Pressure 116/70 01/20/2015 3:31 PM CDT Pulse 84 01/20/2015 3:31 PM CDT Temperature - - Respiratory Rate 16 01/20/2015 3:31 PM CDT Oxygen Saturation - - Inhaled Oxygen Concentration - - Weight 82.4 kg (181 lb 10.5 oz) 01/20/2015 3:31 PM CDT Height - - Body Mass Index 24.34 02/26/2012 10:00 AM CDT documented in this encounter Progress Notes Keith Sarmiento, KIKI, R.N. - 01/20/2015 2:43 PM CDT [id number] CHIEF COMPLAINT/REASON FOR VISIT Anxiety, depression, attention deficit disorder. HISTORY OF PRESENT ILLNESS Ronan is a 29-year-old gentleman who states that because he has not had insurance he has not followed up with Dr. Becerra for his ongoing mental health issues. According to the chart he has not been seen for 2 years. Did have a evaluation through a mental health professional and was told he did have attention deficit. He also has had a history of depression and anxiety. Has had cutting behaviors.States that he is becoming basically homeless. Is moving to [place]. Mother is drug abusing and gone. He at 29 is going to be living with a friend who he is concerned that might worsen some of this health issues. He would like to get on his Adderall at least and really does not feel that he will be returning to [place]. Does have [facility] and is planning on setting up plan of care in [place]. MEDICATIONS Reviewed. ALLERGIES Reviewed. VITAL SIGNS Reviewed. PHYSICAL EXAMINATION GENERAL: Alert, pleasant young man. No acute distress. SKIN: Warm and dry. PSYCHIATRIC: PHQ-9 is 19. Anxiety. MARCOS-7 is 13. IMPRESSION/REPORT/PLAN 1. Anxiety. 2. Depression. 3. Attention deficit disorder. PLAN: Due to the fact that I do have information regarding his previous diagnoses, I did prescribe the Adderall for only the next 3 months and I will defer further treatment to a new provider in [place]. He agrees and will follow as directed. Keith Sarmiento A.P.R.N./saud Electronically Signed By: KEITH SARMIENTO CNP On: 01/23/2015 08:13 AM Source: [facility] MHSDOLBEYNONRADSYS Document Id: [id number] documented in this encounter Miscellaneous Notes Telephone Encounter - Conversion, Historical Provider Ser - 02/13/2015 3:48 PM CDT *Phone Message/ Document Contains Addenda Addendum by AILYN PHILLIPS CMA on 16 February 2015 16:58:30 CDT relayed message Addendum by KEITH SARMIENTO CNP on 16 February 2015 15:20:57 CDT From: KEITH SARMIENTO CNP To: DAIN Sarmiento Nurse; Sent: 02/16/2015 15:20:57 CDT Subject: RE: Requesting extended refill of Adderall due to being on vacation There is no further discussion. He can be assured that he will not go through withdrawl. Addendum by AILYN PHILLIPS CMA on 15 February 2015 15:33:49 CDT From: AILYN PHILLIPS CMA (DAIN Sarmiento Nurse) To: KEITH SARMIENTO CNP; Sent: 02/15/2015 15:33:49 CDT Subject: FW: Requesting extended refill of Adderall due to being on vacation please address Addendum by YASMANI LYONS on 15 February 2015 15:21:41 CDT Patient needs a refill before leaving to [place] and he says that he will go through withdrawls unless he can get this refilled. [phone] Addendum by AILYN PHILLIPS CMA on 14 February 2015 15:14:20 CDT noted tried to call pt but no answer, left message to call back Addendum by KEITH SARMIENTO CNP on 14 February 2015 14:54:23 CDT From: KEITH SARMIENTO CNP To: DAIN Sarmiento Nurse; Sent: 02/14/2015 14:54:23 CDT Subject: RE: Requesting extended refill of Adderall due to being on vacation I cannot, he was leaving for [place] last I spoke to him, I am sorry but he was going to establishcare in [place], he had just started back on the adderal a month ago Addendum by KATIA PAREDES LPN on 13 February 2015 16:54:20 CDT From: KATIA PAREDES LPN (DAIN Sarmiento Nurse) To: KEITH SARMIENTO CNP; Sent: 02/13/2015 16:54:20 CDT Subject: FW: Requesting extended refill of Adderall due to being on vacation Addendum by AILYN REA RN on 13 February 2015 16:23:59 CDT From: AILYN REA RN ( gelatin plant supervisor Med [facility]) To: DAIN Sarmiento Nurse; Sent: 02/13/2015 16:23:59 CDT Subject: Requesting extended refill of Adderall due to being on vacation He was seen by Keith on 01-20-15 and given a 90 day supply (3 hard copies of 30 day supply) for his Adderall medication. See note below. Addendum by CAYDEN DHALIWAL RN on 13 February 2015 16:06:34 CDT From: CAYDEN DHALIWAL [facility]; Sent: 02/13/2015 16:06:34 CDT Subject: FW: *Phone Message/ From: REBECA EGAN ( [facility]; Sent: 02/13/2015 15:48:08 CDT Subject: *Phone Message/ Caller is: ( x [phone]) Patient ( ) Mother ( ) Father ( ) Spouse ( ) Daughter ( ) Son ( ) Pharmacy ( ) Other: Physician: Patient MRN #: Reason for Call: Message: S-would like a call back B-is going to [place] for a wedding- leaves Wed. AM early 02/15- can't refill ADD meds until 02/20- only has 1 week left- will run out while he's in [place]- needs extension to get him through until he returns home A-would like a call back today R-call Ronan at [phone] Advice/Action: Source used: ( ) Verbalizes understanding [...] back cell phone number ( ) Source: [facility] [employer] Document Id: [id number] Kathy - Keith Sarmiento APRN REren - 01/20/2015 4:06 PM CDT PHQ-9 PHQ-9 Entered On: 01/20/2015 16:06 CDT Performed On: 01/20/2015 16:06 CDT by KEITH SARMIENTO CNP PHQ-9 Little interest or pleasure in doing things : Nearly every day Feeling down, depressed, or hopeless : Nearly every day Trouble falling or staying asleep, or sleeping too much : Several days Feeling tired or having little energy : Several days Poor appetite or overeating : Several days Feeling bad about yourself or that you are a failure : More than half the days Trouble concentrating on things : Nearly every day Moving or speaking slowly; restless or fidgety : Nearly every day Thoughts that you would be better off /hurting self : More than half the days PHQ-9 Calculated Score : 19 Problems make work, home, or dealing with others : Very difficult KEITH SARMIENTO CNP - 01/20/2015 16:06 CDT Source: [facility] [employer] Document Id: [id number] CDT!13 Kathy - Keith Sarmiento APRN R.N. - 01/20/2015 4:05 PM CDT MARCOS-7 MARCOS-7 Entered On: 01/20/2015 16:06 CDT Performed On: 01/20/2015 16:05 CDT by KEITH SARMIENTO CNP GAD7 GAD7 Feeling nervous : More than half the days GAD7 Not able to control worry : More than half the days GAD7 Worrying too much : More than half the days GAD7 Trouble relaxing : More than half the days GAD7 Being so restless : More than half the days GAD7 Becoming easily annoyed : More than half the days GAD7 Feeling afraid : Several days GAD7 Total Score : 13 Problems make work, home, or dealing with others : Somewhat difficult KEITH SARMIENTO [employer] - 01/20/2015 16:05 CDT Source: [employer] Document Id: [id number] CDT!11 Miscellaneous - Ailyn Phillips C.M.A. 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/History Entered On: 01/20/2015 15:34 CDT Performed On: 01/20/2015 15:31 CDT by AILYN PHILLIPS [facility] Intake Chief Complaint : med management Peripheral Pulse Rate : 84 /min Respiratory Rate : 16 /min Systolic Blood Pressure : 116 mmHg Diastolic Blood Pressure : 70 mmHg NIBP Mean : 85 mmHg Actual Weight : 82.4 kg(Converted to: 181 lb 11 oz) Weight Source : Standing scale Dosing Weight Clinic : 82.4 kg AILYN PHILLIPS [facility] - 01/20/2015 15:31 CDT General Info Information Given By : Patient Preferred Communication Mode : Verbal Languages : Faroese Is Patient Female and 13-50 no hysterectomy : No AILYN PHILLIPS [facility] - 01/20/2015 15:31 CDT Subjective Pain Symptoms : No AILYN PHILLIPS CMA - 01/20/2015 15:31 CDT Dependent Habits Tobacco Use/Currently Using : Yes Exposure to Tobacco Smoke : Patient smokes Smoking Status : Current every day smoker AILYN PHILLIPS [facility] - 01/20/2015 15:31 CDT Tobacco Use Grid Type : Cigarettes Cigarette Use Packs/Day : 0.5 AILYN PHILLIPS [facility] - 01/20/2015 15:31 CDT Alcohol Use : No AILYN PHILLIPS [facility] - 01/20/2015 15:31 CDT Caffeine Use Grid Caffeine Use : Current Type : Coffee, Soft drinks Frequency : Daily AILYN PHILLIPS CMA - 01/20/2015 15:31 CDT Source: [facility] Document Id: [id number] CDT!32 Miscellaneous - Ailyn Phillips C.M.A. - 01/20/2015 3:31 PM CDT Health Assessment Health Assessment Entered On: 01/20/2015 15:35 CDT Performed On: 01/20/2015 15:31 CDT by AILYN PHILLIPS [facility] Health Assessment Complete Health Assessment Complete or Modified : Annual Health Assessment Annual Health Assessment Completed : Yes AILYN PHILLIPS [facility] - 01/20/2015 15:31 CDT Nutrition Nutrition Risk Factors by History Adult : None AILYN PHILLIPS [facility] - 01/20/2015 15:31 CDT Functional Current Daily Living Assistance : None AILYN PHILLIPS [facility] 01/20/2015 15:31 CDT Dependent Habits Tobacco Use/Currently Using : Yes Exposure to Tobacco Smoke : Patient smokes Smoking Status : Current every day smoker AILYN PHILLIPS [facility] - 01/20/2015 15:31 CDT Tobacco Use Grid Type : Cigarettes Cigarette Use Packs/Day : 0.5 AILYN PHILLIPS [facility] - 01/20/2015 15:31 CDT Caffeine Use Grid Caffeine Use : Current Type : Coffee, Soft drinks Frequency : Daily AILYN PHILLIPS [facility] 01/20/2015 15:31 CDT Psychosocial Domestic Abuse Concerns : None Behavioral Health Screen/Safety Assmt : No Episcopalian Preference : No Episcopalian Affiliation AILYN PHILLIPS [facility] - 01/20/2015 15:31 CDT Advance Directive Advanced Directives : No Advance Directive Additional Information : No AILYN PHILLIPS [facility] 01/20/2015 15:31 CDT Educ Needs Learning Style Preference Adult Grid Patient : Demonstration, Verbal explanation Family : None AILYN PHILLIPS [facility] 01/20/2015 15:31 CDT Source: [facility] POWERCHART Document Id: [id number] CDT!32 documented in this encounter Plan of Treatment Not on filedocumented as of this encounter Visit Diagnoses Not on filedocumented in this encounter Additional Health Concerns Assessment Noted Time PHQ-9 Depression Total Score: 19 01/20/2015 4:06 PM CD T documented as of this encounter
--- OUTSIDE RECORDS SUMMARY | 2022-05-17 14:25 | XMS_ITS | Encounter Summary ---
:1985 Author Organization [facility] Address [address] [place] [address] Care Team Providers Name Role Phone Unavailable Primary Care Provider Unavailable Encounter Details Date Type Department Care Team Description 04/06/2014 Hospital Encounter HX NO MAPPING Quirino Wheatley M.D. [address], [place] [phone] (Wo rk) Social History [...]
--- OUTSIDE RECORDS SUMMARY | 2022-05-17 14:25 | XMS_ITS | Encounter Summary ---
:1985 Author Organization [facility] Address [address] [place] [address] Care Team Providers Name Role Phone Jami Ross APRN, C.N.P., M.S. Primary Care Pro vider Encounter Details Date Type Department Care Team Description 05/08/2017 Abstract Department of Family Medicine, Provider, Historical [facility], in [place], [place] [address] [address] [facility] [phone] Social History Tobacco Use Types Packs/Day Years [...] documented as of this encounter Care Teams Voice Intercept Technician Relationship Specialty Start Date End Date Jami Ross APRN, C.N.P., PCP - General 12/12/16 05/14/17 M.S. [address] [place] [address] documented as of this encounter
--- OUTSIDE RECORDS SUMMARY | 2022-05-17 14:25 | XMS_ITS | Encounter Summary ---
:1985 Author Organization [facility] Address [address] [place] [address] Care Team Providers Name Role Phone Jami Ross APRN C.N.P., M.S. Primary Care Pro vider Encounter Details Date Type Department Care Team Description 02/07/2017 Hospital Encounter HX [facility] Jennifer Corbett APRN, C.N.P., D.N.P., R.N. Social History Tobacco Use Types Packs/Day Years [...] documented as of this encounter Progress Notes Janine Corbett APRN, D.N.P., C.N.P. - 02/07/2017 3:44 PM CDT FM - LE CHIEF COMPLAINT/REASON FOR VISIT med review HISTORY OF PRESENT ILLNESS Ronan is a 31 year old male who presents to the clinic to restart his medication for ADHD and depression. Notes that he has been off of medication for the past year. Requests to restart his ADHD medication to help at his job. Starting a job at [employer] next week and wants his ADHD better controlled. While off of medication he had difficulty sleeping, had difficulty with focus, and less motivated. States that symptoms were well controlled on Adderall in the past. Notes a history of smoking marijuana, but denies smoking for the past month. Previously would smoke marijuana 1 - 2 times per week. Denies smoking cigarettes at this time, notes that he uses nicotine free vaping. Notes that anxiety is one of the main causes of his depression. Has been previously hospitalized twice due to a suicide attempt at age 21 where he attempted to cut his wrists. Was also voluntarily held at age 26 due to thoughts of suicide. While on medication in the past things were going pretty goodand he would fee normal. Notes that he intends to restart counseling in addition to his medication. Ronan requests periodic drug screenings to help him remain accountable with his sobriety. His PHQ-9 score today was 20 and his MARCOS-7 score was 16. Notes that he does continue to have some thoughts ofsuicide but states he would not follow through with any attempts at this time and does not have a current plan in place. Ronan says one of the main reasons he would not commit suicide is because of his mother and how he would hate disappoint her. He credits his mother as one the main reasons he is starting medication again and looking to restart counseling. MEDICATIONS Adderall 5 mg oral tablet, Melatonin 10 mg oral capsule, 10 mg, 1 cap(s), PO, Bedtime Zoloft 50 mg oral tablet, ZzzQuil, PO, Bedtime, PRN ALLERGIES NKA PAST MEDICAL HISTORY Chronic ADD. Historical No historical problems FAMILY HISTORY Mother:Family History Unknown. SYSTEMS REVIEW See HPI for positive findings. General: Denies fatigue, weight loss, fever, chills, or night sweats. Cardiovascular: Denies any history of heart disease or high blood pressure. Denies dyspnea, orthopnea, chest pain, palpitations, or claudication. Last ECG _. Psychiatric: See HPI VITAL SIGNS HR: 82 BP: 132 / 80 HT: 182.5 cm WT: 81.0 kg BMI: 24.32 PHYSICAL EXAMINATION General: Does not appear in any acute distress Lungs: Clear to auscultation, no wheezes, rales, or rhonchi. Cardiovascular: No murmur, gallop, or rub. Psych: Normal cognition, mood and affect. Calm at visit, very open with questions and answers. IMPRESSION/REPORT/PLAN Attention Deficit Hyperactive (ADHD) Disorder Restarted on Adderall 5 mg twice a day. Will continue to review at follow up visits and increase asappropriate to control symptoms. Will plan on restarting patient on a CSA after getting to a stable dose and will do periodic drug screenings to monitor patients sobriety. Depression Anxiety Restart patient on Zoloft 50 mg daily. Follow up in 2 weeks and depending on tolerance will increase to 100 mg daily which was patients previous dose. Patient to contact provider with any side effectsor worsening depression. Patient agrees to go to ER with any active thoughts of suicide. 20 minutes was spent counseling at todays visit of the 25 minute appointment. Electronically Signed By: JANINE CORBETT DNP, CNP On: 02/09/2017 10:10 AM Source: [facility] [employer] Document Id: [id number] documented in this encounter Miscellaneous Notes Miscellaneous - Mary Dominguez L.P.N. - 02/07/2017 3:22 PM CDT MARCOS-7 MARCOS-7 Entered On: 02/07/2017 15:23 CDT Performed On: 02/07/2017 15:22 CDT by MARY DOMINGUEZ LPN GADCindi GAD7 Feeling nervous : Nearly every day GAD7 Not able to control worry : Nearly every day GAD7 Worrying too much : Nearly every day GAD7 Trouble relaxing : More than half the days GAD7 Being so restless : Several days GAD7 Becoming easily annoyed : More than half the days GAD7 Feeling afraid : More than half the days GAD7 Total Score : 16 Problems make work, home, or dealing with others : Very difficult MARY DOMINGUEZ LPN - 02/07/2017 15:22 CDT [facility] Document Id: [id number] CDT!11 Miscellaneous - Mary Dominguez L.P.N. - 02/07/2017 3:22 PM CDT PHQ-9 PHQ-9 Entered On: 02/07/2017 15:24 CDT Performed On: 02/07/2017 15:22 CDT by MARY DOMINGUEZ LPN PHQ-9 Little interest or pleasure in doing [...] every day Trouble concentrating on things : More than half the days Moving or speaking slowly; restless or fidgety : Nearly every day Thoughts that you would be better off /hurting self : More than half the days PHQ-9 Calculated Score : 20 Problems make work, home, or dealing with others : Very difficult MARY DOMINGUEZ LPN - 02/07/2017 15:22 CDT Source: [facility] Document Id: [id number] CDT!13 Miscellaneous - Mary Dominguez, L.P.N. 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 Entered On: 02/07/2017 15:19 CDT Performed On: 02/07/2017 15:19 CDT by AMRY DOMINGUEZ LPN Intake Peripheral Pulse Rate : 82 /min Heart Rhythm : Regular Systolic Blood Pressure : 132 mmHg Diastolic Blood Pressure : 80 mmHg NIBP Mean : 97 mmHg BP Location : Right upper extremity Blood Pressure Cuff Size : Regular MARY DOMINGUEZ LPN - 02/07/2017 15:20 CDT Chief Complaint : med review Height : 182.5 cm(Converted to: 6 ft 0 inch(es), 72 inch(es)) Actual Weight : 81.0 kg(Converted to: 178 lb 9 oz) Weight Source : Standing scale Dosing Weight Clinic : 81 kg Clinic BSA : 2.03 Body Mass Index : 24.32 kg/m2 MARY DOMINGUEZ LPN - 02/07/2017 15:19 CDT General Info Languages : Syriac Is Patient Female and 13-50 no hysterectomy : No MARY DOMINGUEZ LPN - 02/07/2017 15:19 CDT Subjective Pain Symptoms : No MARY DOMINGUEZ LPN - 02/07/2017 15:19 CDT Dependent Habits Exposure to Tobacco Smoke : Patient smokes Smoking Status : Current some day smoker Tobacco 2A : Yes Tobacco Use/Currently Using : Yes Tobacco Use/Last 30 Days : Yes Tobacco Use/Last 12 months : Yes Type : Other: vaps Alcohol Use : Yes MARY DOMINGUEZ LPN - 02/07/2017 15:19 CDT Caffeine Use Grid Caffeine Use : Current Type : Coffee, Soft drinks Frequency : Daily MARY DOMINGUEZ LPN - 02/07/2017 15:19 CDT Source: [employer] Document Id: [id number] CDT!9 Miscellaneous - Mary Dominguez, L.P.N. - 02/07/2017 3:16 PM CDT Health Assessment Health Assessment Entered On: 02/07/2017 15:19 CDT Performed On: 02/07/2017 15:16 CDT by MARY DOMINGUEZ LPN Health Assessment Complete Health Assessment Complete or Modified : Annual Health Assessment Annual Health Assessment Completed : Yes MARY DOMINGUEZ LPN - 02/07/2017 15:16 CDT Nutrition Nutrition Risk Factors by History Adult : None MARY DOMINGUEZ LPN - 02/07/2017 15:16 CDT Functional Current Daily Living Assistance : None MARY DOMINGUEZ LPN - 02/07/2017 15:16 CDT Dependent Habits Exposure to Tobacco Smoke : Patient smokes Smoking Status : Current some day smoker Tobacco 2A : Yes Tobacco Use/Currently Using : Yes Tobacco Use/Last 30 Days : Yes Tobacco Use/Last 12 months : Yes Type : Other: uses a vap with nicotine free Alcohol Use : Yes MARY DOMINGUEZ LPN - 02/07/2017 15:16 CDT Caffeine Use Grid Caffeine Use : Current Type : Coffee, Soft drinks Frequency : Daily MARY DOMINGUEZ [facility] - 02/07/2017 15:16 CDT AUDIT Tool How Often Do You Have A Drink : 2 to 4 times a month How Many Drinks in a Day When Drinking : 3 or 4 Six or More Drinks On One Occassion : Less than monthly Audit Phase 1 Score : 4 MARY DOMINGUEZ [facility] - 02/07/2017 15:16 CDT Psychosocial Domestic Abuse Concerns : None Behavioral Health Screen/Safety Assmt : No Taoism Preference : No Taoism Affiliation MARY DOMINGUEZ [facility] - 02/07/2017 15:16 CDT Advance Directive Advanced Directives : No Advance Directive Additional Information : No ANGELICALAXMI CHANGEN Bryan [facility] - 02/07/2017 15:16 CDT Educ Needs Learning Style Preference Adult Grid Patient : Demonstration, Verbal explanation, Printed materials Family : None LAXMI DOMINGUEZHAMILTON Adams [facility] - 02/07/2017 15:16 CDT [facility]: [facility] Document Id: [id number] CDT!38 documented in this encounter Plan of Treatment Not on filedocumented as of this encounter Visit Diagnoses Not on filedocumented in this encounter Additional Health Concerns Assessment Noted Time PHQ-9 Depression Total Score: 20 02/07/2017 3:22 PM CD T documented as of this encounter Care Teams Perforator Relationship Specialty Start Date End Date Jami Ross APRN, C.N.P., PCP - General 12/12/16 05/14/17 M[address] [place] [phone] documented as of this encounter
--- OUTSIDE RECORDS SUMMARY | 2022-05-17 14:25 | XMS_ITS | Encounter Summary ---
:1985 Author Organization [facility] Address [address] [place] [address] Care Team Providers Name Role Phone Unavailable Primary Care Provider Unavailable Encounter Details Date Type Department Care Team Description 05/17/2014 Hospital Encounter HX NO MAPPING Nisha Andrade M.D. [address], [place] [phone] (Wo rk) Social History [...]
--- OUTSIDE RECORDS SUMMARY | 2022-05-17 14:25 | XMS_ITS | Encounter Summary ---
:1985 Author Organization [facility] Address [address] [place] [address] Care Team Providers Name Role Phone Unavailable Primary Care Provider Unavailable Encounter Details Date Type Department Care Team Description 05/17/2014 Hospital Encounter HX NO MAPPING Nisha Andrade M.D. [address], [place] [phone] (Wo rk) Social History [...]
--- OUTSIDE RECORDS SUMMARY | 2022-05-17 14:25 | XMS_ITS | Encounter Summary ---
:1985 Author Organization [facility] Address [address] [place] [address] Care Team Providers Name Role Phone Jami Ross APRN, C.N.P., M.S. Primary Care Pro vider Encounter Details Date Type Department Care Team Description 05/06/2017 Clinical Communication Department of [facility] Nhi Eaton [facility], Jami Esteves APRN, Clinic, in [place], M.S . [place] [address] [address] [facility] [address] [place] [phone] Social History Tobacco Use Types Packs/Day Years Used Date Smoking Tobacco: Every Day Sex Assigned at Date Recorded Not on file documented as of this encounter Miscellaneous Notes Telephone Encounter - Brandon Bills - 05/09/2017 12:09 PM CST It looks like patient is scheduled with Dr. Beryl Hampton on 05/13. Thank you. ET MARKER Telephone Encounter - Jami Ross APRN, R.NKrista - 05/06/2017 11:42 AM CST Patient will need to be seen by any available provider. My availability is limited. ET MARKER documented in this encounter Plan of Treatment Not on filedocumented as of this encounter Visit Diagnoses Not on filedocumented in this encounter Additional Health Concerns Assessment Noted Time PHQ-9 Depression Total Score: 10 03/05/2017 8:09 AM CD T documented as of this encounter Care Teams Manufacturing Process Technician Relationship Specialty Start Date End Date Jami Ross APRN, C.N.P., PCP - General 12/12/16 05/14/17 M.S. [address] [place] [address] documented as of this encounter
--- OUTSIDE RECORDS SUMMARY | 2022-05-17 14:25 | XMS_ITS | Encounter Summary ---
:1985 Author Organization [facility] Address [address] [place] [address] Care Team Providers Name Role Phone Jami Ross APRN, C.N.P., M.S. Primary Care Pro vider Encounter Details Date Type Department Care Team Description 02/21/2017 Hospital Encounter HX [facility] Jennifer Corbett APRN, C.N.P., D.N.P., R.N. Social History Tobacco Use Types Packs/Day Years Used Date Smoking Tobacco: Some Days Sex Assigned at Date Recorded Not on file documented as of this encounter Last Filed Vital Signs Vital Sign Reading Time Taken Comments Blood Pressure 120/82 02/21/2017 2:15 PM CDT Pulse 84 02/21/2017 2:15 PM CDT Temperature - - Respiratory Rate - - Oxygen Saturation - - Inhaled Oxygen Concentration - - Weight 78.5 kg (173 lb 1 oz) 02/21/2017 2:15 PM CDT Height 182 cm (5' 11.65) 02/21/2017 2:15 PM CDT Body Mass Index 23.7 02/21/2017 2:15 PM CDT documented in this encounter Medications at Time of Discharge Medication Sig Dispensed Refills Start Date End Date DIPHENHYDRAMINE HCL ORAL Take by mouth at 0 08/2805/13/2017 bedtime as needed. melatonin 10 mg capsule Take 1 capsule by 0 08/2805/13/2017 mouth at bedtime. documented as of this encounter Progress Notes Janine Corbett APRN, D.N.P., C.N.P. - 02/21/2017 2:13 PM CDT FM - LE CHIEF COMPLAINT/REASON FOR VISIT followup HISTORY OF PRESENT ILLNESS Ronan is a 31 year old male who presents to the clinic today for follow up of depression and anxiety from visit 2 weeks ago. Patient was restarted on Adderall 5 mg twice daily and Zoloft 50 mg daily.Patient had been off of medication for almost a year but wanted to restart before he started his newjob at [employer] so that he could better focus while at work. Patients previous dose of Adderall was 20 mg twice daily and Zoloft 100 mg daily. His PHQ-9 score 2 weeks ago was 20 and his MARCOS-7 score was 16. Patients PHQ-9 score today is 17 and MARCOS-7 score is 15. Notes that over the past few days symptoms have improved since last visit. Ronan has been enjoying his new job, but notes he has been very busywith work. He is currently working 12 hours shifts and has been finding it difficult to find time toeat due to his schedule and then being tired after work and sleeping. Has had a 2.5 kg weight loss since last visit but he contributes that to not eating as much junk food and working all day. Notes that his girlfriends kids were in an accident last night when their car went of the road but reports everyone is fine and doing well. Denies any side effects of the medication. Notes that since starting the Adderall he has had improvement with focus when working on the computer. Patient denies any current illicit drug use. Ronan continues to have thoughts of what would be different if he was not alive, but denies that his thought have worsened or that he has had any active thoughts of suicide. Noted that if he has worsening depression he would contact his provider or go to the ED if needed. MEDICATIONS Adderall 5 mg oral tablet, Melatonin 10 mg oral capsule, 10 mg, 1 cap(s), PO, Bedtime Zoloft 50 mg oral tablet, ZzzQuil, PO, Bedtime, PRN List Documented Prior to Med History Completed ALLERGIES NKA PAST MEDICAL HISTORY Chronic ADD. Historical No historical problems SOCIAL HISTORY Date Time: 02/21/2017 14:15 Tobacco: Smoking Status: Former smoker Exposure: Patient smokes, Other: e-cig Alcohol: Use: No Results Found Recreational Drugs: Use: No Results Found Type: No Results Found VITAL SIGNS HR: 84 BP: 120 / 82 HT: 182 cm WT: 78.5 kg BMI: 23.7 PHYSICAL EXAMINATION General: Does not appear in any acute distress Lungs: Clear to auscultation, no wheezes, rales, or rhonchi. Cardiovascular: No murmur, gallop, or rub. Psych: Normal cognition, mood and affect. Calm at visit, very open with questions and answers. [1] IMPRESSION/REPORT/PLAN Attention Deficit Hyperactive (ADHD) Disorder Continue with Adderall 5 mg daily. Will return in 2 weeks for follow up and will adjust medication as needed at that time. Will not refill medication until next visit. Depression Increased sertraline to 100 mg daily which was patient previous therapeutic dose. Will follow up in2 weeks. Agrees to contact provider with any worsening of depression and will go to ED if having anyactive thoughts of suicide. If symptoms continue to improve at next visit would recommend continuingsertraline at 100 mg and follow up in 1 month, then extending visits to 3 months, 6 months, and 1 year. Orders: sertraline, 100 mg = 1 tab(s), PO, Daily, # 30 tab(s), 0 Refill(s), Maintenance, Pharmacy: [facility] [id number] Return Visit [facility] 30 Min FOOTNOTES [1]FM - LE; JANINE CORBETT DNP [facility] 02/07/2017 15:44 CDT Electronically Signed By: JANINE CORBETT BUSINESS REPORTING DEVELOPER On: 02/21/2017 02:47 PM Source: [employer] Document Id: [id number] Electronically signed by Janine Corbett, ELECTRIC MOTOR WINDERS ASSEMBLER, D.N.P., C.N.P. at 02/21/2017 2:47 PM CDT documented in this encounter Miscellaneous Notes Miscellaneous - Johnna Lyon, L.P.N. - 02/21/2017 2:20 PM CDT MARCOS-7 MARCOS-7 Entered On: 02/21/2017 14:21 CDT Performed On: 02/21/2017 14:20 CDT by JOHNNA LYON LPN GAD7 GAD7 Feeling nervous : More than half the days GAD7 Not able to control worry : More than half the days GAD7 Worrying too much : More than half the days GAD7 Trouble relaxing : More than half the days GAD7 Being so restless : Nearly every day GAD7 Becoming easily annoyed : More than half the days GAD7 Feeling afraid : More than half the days GAD7 Total Score : 15 Problems make work, home, or dealing with others : Very difficult JOHNNA LYON LPN - 02/21/2017 14:20 CDT Source: [employer] Document Id: [id number] CDT!11 Miscellaneous - Johnna Lyon L.P.N. - 02/21/2017 2:20 PM CDT PHQ-9 PHQ-9 Entered On: 02/21/2017 14:22 CDT Performed On: 02/21/2017 14:20 CDT by JOHNNA LYON LPN PHQ-9 Little interest or pleasure in doing things : More than half the days Feeling down, depressed, or hopeless : Several days Trouble falling or staying asleep, or [...] half the days PHQ-9 Calculated Score : 17 Problems make work, home, or dealing with others : Very difficult JOHNNA LYON LPN - 02/21/2017 14:20 CDT Source: [employer] Document Id: [id number] CDT!13 Miscellaneous - Johnna Lyon L.P.NKrista - 02/21/2017 2:15 PM CDT Adult Construction Rep Intake/History Adult Construction Rep Intake/History Entered On: 02/21/2017 14:18 CDT Performed On: 02/21/2017 14:15 CDT by JOHNNA LYON LPN Intake Chief Complaint : followup Peripheral Pulse Rate : 84 /min Heart Rhythm : Regular Systolic Blood Pressure : 120 mmHg Diastolic Blood Pressure : 82 mmHg NIBP Mean : 95 mmHg BP Location : Right upper extremity Blood Pressure Cuff Size : Regular Oxygen Therapy : Room air Height : 182 cm(Converted to: 6 ft 0 inch(es), 72 inch(es)) Actual Weight : 78.5 kg(Converted to: 173 lb 1 oz) Weight Source : Standing scale Dosing Weight Clinic : 78.5 kg Clinic BSA : 1.99 Body Mass Index : 23.7 kg/m2 JOHNNA LYON LPN - 02/21/2017 14:15 CDT General Info Information Given By : Patient Languages : Swiss Is Patient Female and 13-50 no hysterectomy : No JOHNNA LYON LPN - 02/21/2017 14:15 CDT Subjective Pain Symptoms : No JOHNNA LYON LPN - 02/21/2017 14:15 CDT Dependent Habits Exposure to Tobacco Smoke : Patient smokes, Other: e-cig Smoking Status : Former smoker Tobacco 2A : Yes Tobacco Use/Currently Using : No Tobacco Use/Last 30 Days : Yes Tobacco Use/Last 12 months : Yes Type : Cigarettes: Less than 20 per day Tobacco Use/Advised to Quit : Yes JOHNNA LYON LPN - 02/21/2017 14:15 CDT Caffeine Use Grid Caffeine Use : Current Type : Coffee, Soft drinks Frequency : Daily JOHNNA LYON LPN - 02/21/2017 14:15 CDT [facility] P[facility] Document Id: [id number] CDT!37 documented in this encounter Plan of Treatment Not on filedocumented as of this encounter Visit Diagnoses Not on filedocumented in this encounter Additional Health Concerns Assessment Noted Time PHQ-9 Depression Total Score: 17 02/21/2017 2:20 PM CD T documented as of this encounter Care Teams Patent Lawyer Relationship Specialty Start Date End Date Jami Ross APRN, C.N.P., PCP - General 12/12/16 05/14/17 M.SKrista [address] [place] [phone] documented as of this encounter
--- OUTSIDE RECORDS SUMMARY | 2022-05-17 14:25 | XMS_ITS | Encounter Summary ---
:1985 Author Organization [facility] Address [address] [place] [address] Care Team Providers Name Role Phone Jami Ross APRN C.N.P., M.S. Primary Care Pro vider Reason for Visit Reason Comments Head Injury Encounter Details Date Type Department Care Team Description 05/05/2017 Emergency [facility] Concussion No Loss Of [address] Consciousness Initial JAZMIN DUMAS [phone] (Primary Dx) [phone] Social History Tobacco Use Types Packs/Day Years Used Date Smoking Tobacco: Every Day Sex Assigned at Date Recorded Not on file documented as of this encounter Medications at Time of Discharge Medication Sig Dispensed Refills Start Date End Date dextroamphetamine-amphetami Take 1 tablet by 0 06/06/2017 ne (ADDERALL) 5 mg tablet mouth 2 (two) times a day. DIPHENHYDRAMINE HCL ORAL Take by mouth at 0 08/2805/13/2017 bedtime as needed. melatonin 10 mg capsule Take 1 capsule by 0 08/2805/13/2017 mouth at bedtime. sertraline (ZOLOFT) 100 mg Take 1 tablet by 0 11/201606/06/2017 tablet mouth daily. documented as of this encounter Plan of Treatment Not on filedocumented as of this encounter Visit Diagnoses Diagnosis Concussion No Loss Of Consciousness Init ial - Primary documented in this encounter Additional Health Concerns Assessment Noted Time PHQ-9 Depression Total Score: 10 03/05/2017 8:09 AM CD T documented as of this encounter Care Teams School Librarian Relationship Specialty Start Date End Date Jami Ross APRN, C.N.P., PCP - General 12/12/16 05/14/17 M[address] [place] [phone] documented as of this encounter
--- OUTSIDE RECORDS SUMMARY | 2022-05-17 14:25 | XMS_ITS | Encounter Summary ---
:1985 Author Organization [facility] Address [address] [place] [address] Care Team Providers Name Role Phone Jami Ross APRN, C.N.P., M.S. Primary Care Pro vider Encounter Details Date Type Department Care Team Description 03/05/2017 Hospital Encounter HX [facility] Jennifer Corbett APRN, C.N.P., D.N.P., R.N. Social History Tobacco Use Types Packs/Day Years Used Date Smoking Tobacco: Former Sex Assigned at Date Recorded Not on file documented as of this encounter Last Filed Vital Signs Vital Sign Reading Time Taken Comments Blood Pressure 110/62 03/05/2017 7:26 AM CDT Pulse 68 03/05/2017 7:26 AM CDT Temperature - - Respiratory Rate - - Oxygen Saturation - - Inhaled Oxygen Concentration - - Weight 79.7 kg (175 lb 11.3 oz) 03/05/2017 7:26 AM CDT Height 182 cm (5' 11.65) 03/05/2017 7:26 AM CDT Body Mass Index 24.06 03/05/2017 7:26 AM CDT documented in this encounter Medications at Time of Discharge Medication Sig Dispensed Refills Start Date End Date DIPHENHYDRAMINE HCL ORAL Take by mouth at 0 08/2805/13/2017 bedtime as needed. melatonin 10 mg capsule Take 1 capsule by 0 08/2805/13/2017 mouth at bedtime. sertraline (ZOLOFT) 100 mg Take 1 tablet by 0 11/201606/06/2017 tablet mouth daily. documented as of this encounter Miscellaneous Notes Telephone Encounter - Conversion, Historical Provider Ser - 04/24/2017 1:01 PM CDT *Phone Message/ [email or web address] Document Contains Addenda Addendum by NIKKI MARQUEZ LPN on April 25, 2017 08:20:00 CDT Sent to info desk for roll picker. Addendum by ITZ CHEUNG RN on April 24, 2017 14:25:58 CDT From: ITZ CHEUNG RN ([facility]) To: [facility] 1 Nurse; Sent: 04/24/2017 14:25:58 CDT Subject: FW: Rx Change requested Addendum by JANINE CORBETT NP on April 24, 2017 14:24:04 CDT From: JANINE CORBETT NP [facility]; Sent: 04/24/2017 14:24:04 CDT Subject: RE: Rx Change requested I have refilled Adderall 5 mg immediate release to be used twice daily. He can fill this on 05/02/2017. Rx has been placed at the nurses station in the Rx tray. Addendum by ITZ CHEUNG RN on April 24, 2017 13:34:20 CDT From: ITZ CHEUNG RN ([facility]) To: JANINE CORBETT NP; Sent: 04/24/2017 13:34:20 CDT Subject: Rx [facility]; Sent: 04/24/2017 13:01:15 CDT Subject: *Phone Message/ Perla Caller is: ( x ) Patient ( ) Mother ( ) Father ( ) Spouse ( ) Daughter ( ) Son ( ) Pharmacy ( ) Other: Physician: Patient MRN #: Reason for Call: Message: S-is taking Adderol extended- is keeping him up at night B-wants to go back to the tablets that are not extended A- R- call Ronan at [phone] Advice/Action: Source used: ( ) Verbalizes understanding [...] back cell phone number ( ) [facility] Document Id: [id number] documented in this encounter Plan of Treatment Not on filedocumented as of this encounter Visit Diagnoses Not on filedocumented in this encounter Additional Health Concerns Assessment Noted Time PHQ-9 Depression Total Score: 10 03/05/2017 8:09 AM CD T documented as of this encounter Care Teams Director Religious Education Relationship Specialty Start Date End Date Jami Ross APRN, C.N.P., PCP - General 12/12/16 05/14/17 M.S. [address] [place] [address] documented as of this encounter
--- OUTSIDE RECORDS SUMMARY | 2022-05-17 14:25 | XMS_ITS | Encounter Summary ---
:1985 Author Organization [facility] Address [address] [place] [address] Care Team Providers Name Role Phone Unavailable Primary Care Provider Unavailable Encounter Details Date Type Department Care Team Description 08/08/2015 Hospital Encounter HX [facility] Jami Sylvester APRN, C.N.P., M.S. [address] [place] [address] (Wo rk) Social History Tobacco Use Types Packs/Day Years Used Date Smoking Tobacco: Never Assessed Sex Assigned at Date Recorded Not on file documented as of this encounter Last Filed Vital Signs Vital Sign Reading Time Taken Comments Blood Pressure 110/70 08/08/2015 10:11 AM MARKING MACHINE TENDER Pulse 74 08/08/2015 10:11 AM MARKING MACHINE TENDER Temperature - - Respiratory Rate 14 08/08/2015 10:11 AM MARKING MACHINE TENDER Oxygen Saturation - - Inhaled Oxygen Concentration - - Weight 73.2 kg (161 lb 6 oz) 08/08/2015 10:11 AM MARKING MACHINE TENDER Height - - Body Mass Index 21.62 02/26/2012 10:00 AM CDT documented in this encounter Progress Notes Jami Ross APRN, R.N. - 08/08/2015 9:53 AM CST [id number] CHIEF COMPLAINT/REASON FOR VISIT Anxiety, bipolar. HISTORY OF PRESENT ILLNESS Patient presents today for evaluation of anxiety symptoms. He was recently evaluated in clinic on August 01, 2015, for anxiety and depression symptoms. At that visit, he was restarted on antidepressant medications as well as Adderall. Patient had previously been followed by [facility] for his mental healthcare. He was referred back to a mental healthcare provider for his ongoing counseling. Patient was started on Zoloft at a dose of 25 mg daily for 1 week then increasing to 50 mgdaily. He reports that he did increase to 50 mg on August 07. Patient was evaluated in the emergency room on the 03 of August for anxiety and a panic attack. He was advised to follow up with primary care for ongoing management of his anxiety. MARCOS-7 score on August 07 was 20. PHQ-9 score todayis 19. Patient reports that he has not yet been seen by his mental healthcare provider. He is scheduled for an appointment this afternoon. Patient reports that he is experiencing high levels of anxietyat present time. He is somewhat tearful during the visit today. He reports that he is concerned about starting a new job tomorrow. 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 He states that he has been quite concerned that previous decisions and mistakes that he has made in the past will impact his future. He is contemplating application for disability due to his ongoing mental health issues. He states he is not sleeping well at night despite the use of melatonin at an unspecified dose. Patient reports today that he has a past diagnosis of bipolar disorder. This was not mentioned in previous visits. He reports difficulty obtaining his past medical records as he does not recall where he has received care in the past. His parents are unable to assist him in locating his past medical care providers. MEDICATIONS Adderall 10 mg by mouth 2 times a day. Zoloft 50 mg once a day. ALLERGIES None. SYSTEMS REVIEW Negative except as stated in the history of present illness. PAST MEDICAL/SURGICAL HISTORY Attention deficit hyperactivity disorder, depression, epispadias with surgical repair as a child. SOCIAL HISTORY HEALTH HABITS: Patient is currently a tobacco user. VITAL SIGNS Weight 73.2 kg. Temperature 36.8, heart rate 74, respiratory rate 14, blood pressure 110/70. PHYSICAL EXAMINATION GENERAL: Patient is a well-developed, well-nourished 29-year-old male in a moderate amount of distress. His behavior, appearance, and speech are appropriate. SKIN: Warm to the touch. Good turgor. No ulcerations or rashes. Nail beds are pink with prompt capillary refill. LUNGS: Clear to auscultation bilaterally in all ambrosio without rales, rhonchi, wheezing, or diminished breath sounds. CARDIOVASCULAR: S1, S2. Regular rate and rhythm without murmurs, rubs, or gallops. NEUROLOGIC: Mental status: Alert and oriented x3. Patient appears nervous. He is somewhat tearful during interview today. Denies suicidal or homicidal ideation. IMPRESSION/REPORT/PLAN Anxiety. Patient was provided a prescription for Ativan 0.5 mg to take 2 times daily as needed only for panic attacks. I discussed that ongoing use of antianxiety medication is not ideal management of anxiety symptoms. Advised that he continue his current dose of Zoloft 50 mg daily as this may benefithis anxiety symptoms. Discussed the addition of Adderall last week and the impact that this may havehad on his sleep. Patient reports that his difficulty with insomnia was present long before the addition of Adderall to his medication regimen. We will continue this medication at this time. Advised that if patient is interested in seeking disability, [place] through [place]. Advised that at this time his mental health issues are undertreated. He needs to keep his appointment this afternoon with his mental healthcare provider for further evaluation. Patient advised to seek emergent care should he develop suicidal or homicidal ideations. Will follow up in approximately 2 weeks via phone call for completion of PHQ-9, MARCOS-7, and assessment for the need of a medication dose increase. Thepatient agrees with the plan of care from today's visit. Denies further questions or concerns. Jami Ross R.N. 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. Modified by and Electronically Signed by: MAKENZIE LYLES LPN On: 09/21/2015 05:03 PM Addendum by JAMI ROSS APRN on September 21, 2015 16:39:38 CDT From: JAMI ROSS APRN To: [facility] 2W Nurse; Sent: 09/21/2015 16:39:38 CDT Subject: RE: Med Management Addendum by JAMI ROSS APRN on September 21, 2015 16:39:16 CDT From: JAMI ROSS APRN To: [facility] 2W Nurse; Sent: 09/21/2015 16:39:16 CDT Subject: RE: Med Management Addendum by JAMI ROSS APRN on September 21, 2015 16:39:09 CDT Patient should have multiple refills for the Zoloft at [facility]. He should be on the 100 mg dailydose, and I sent 6 refills for that on 08-24-15. He should be able to fill these at any [facility] in the country. I prepared 2 prescriptions for his Adderall. He can fill the next one on 09-29-15, and the second one can be filled on 10-29-15. He should try to find not only a new PCP but also a new counselor in [place]. Tell him good luck! Addendum by MAKENZIE LYLES LPN on September 21, 2015 15:43:10 CDT Spoke to pt on the phone and needs prescriptions below refilled as soon as possible. Pt stated he is moving to [place] either tomorrow (09/21) or first thing Friday morning (09/24). Pt stated he is makingthis move to hopefully improve his life and change things around. Was requesting Chica to refill Zoloft as prescribed and Adderall with 1 or 2 extra refills to get him by until he is able to est. care with a provider in [place]. [facility] was notified of this request and will josi these requests. 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 Can leave VM if no answer. Addendum by MAKENZIE LYLES LPN on September 21, 2015 15:19:30 CDT From: MAKENZIE LYLES LPN ([facility] 2W Nurse) To: JAMI ROSS APRN; Sent: 09/21/2015 15:19:30 CDT ! Subject: Med Management On hold pending signature Order:sertraline (Zoloft 50 mg oral tablet) 1 tab(s) PO Daily 1/2 tab for one week than increase to 1 full tab Qty: 30 tab(s) Refills: 0 Substitutions Allowed Print - [id number] On hold pending signature Order:dextroamphetamine-amphetamine (Adderall 10 mg oral tablet) 1 tab(s) PO 2xDay Do not fill until2-2-16. AM & Noon Qty: 60 tab(s) Refills: 0 Substitutions Allowed Print - [id number] Addendum by SHREYA REINOSO RN on September 21, 2015 12:27:38 CDT From: SHREYA REINOSO RN ( [facility]) To: [facility] 2W Nurse; Sent: 09/21/2015 12:27:38 CDT Subject: FW: *Phone Message - Nhi From: MATI TOBAR ( [facility]) To: [facility]; Sent: 09/21/2015 12:07:10 CDT Subject: *Phone Message - Nhi Caller is: (x ) Patient ( ) Mother ( ) Father ( ) Spouse ( ) Daughter ( ) Son ( ) Pharmacy ( ) Other: Physician: Patient MRN #: Reason for Call: Message: patient called - he is moving to [place] this week - wants a refill on his meds today - also wants to know if he can get an extra month (controlled) to take with him - wants call back at [phone] - please call between 3:00 - 3:15 or at 4:00 today Advice/Action: Source used: ( ) Verbalizes understanding [...] back cell phone number ( ) [facility] Document Id: [id number] Miscellaneous - Conversion, Historical Provider Ser - 08/28/2015 6:47 AM MARKING MACHINE TENDER FW: add appt. Document Contains Addenda Addendum by ARIES ASHRAF on 28 August 2015 12:53:55 MARKING MACHINE TENDER From: ARIES ASHRAF To: JAMI ROSS APRN; Sent: 08/28/2015 12:53:55 MARKING MACHINE TENDER Subject: RE: add appt. you can send them to me, but send them to the the [address] Animal Assistant, this way if I am gone whoeveris covering for me will get the message. Thank you ! Addendum by JAMI ROSS APRN on 28 August 2015 09:05:02 MARKING MACHINE TENDER From: JAMI ROSS APRN To: ARIES ASHRAF; Sent: 08/28/2015 09:05:02 MARKING MACHINE TENDER Subject: RE: add appt. Yes. I spoke with him and he is aware of the appt and time. Should I just send these kinds of thingsright to you in the future? Or is messaging the steel detailer ok? Addendum by ARIES ASHRAF on 28 August 2015 08:37:03 MARKING MACHINE TENDER From: ARIES ASHRAF ([address] Animal Assistant) To: JAMI ROSS APRN; Sent: 08/28/2015 08:37:03 MARKING MACHINE TENDER Subject: FW: add appt. Chica, Is the patient aware of appt date and time? When you put in an order, the only way it will get scheduled is if the patient calls after getting the automated called. The [facility] schedulers do not monitor the queue. From: MATI TOBAR ([facility] Animal Assistant) To: [address] Animal Assistant; Sent: 08/28/2015 06:47:27 MARKING MACHINE TENDER Subject: FW: add appt. From: JAMI ROSS APRN To: [facility] Animal Assistant; Sent: 08/25/2015 16:17:34 MARKING MACHINE TENDER Subject: add appt. Please add this patient to my schedule for next FridayAugust 28 at 5 PM as an extra patient. 30 minute visit. I sent through an order yesterday, but I dont see that he has been added yet. Thanks! Chica Source: [facility] POWERCHART Document Id: [id number] Miscellaneous - Nena Mckeon, C.M.A. - 08/24/2015 3:08 PM CST MARCOS-7 MARCOS-7 Entered On: 08/24/2015 15:10 MARKING MACHINE TENDER Performed On: 08/24/2015 15:08 MARKING MACHINE TENDER by NENA MCKEON CMA GAD7 GAD7 Feeling nervous : Nearly every day GAD7 Not able to control worry : Nearly every day GAD7 Worrying too much : Nearly every day GAD7 Trouble relaxing : Nearly every day GAD7 Being so restless : Nearly every day GAD7 Becoming easily annoyed : Nearly every day GAD7 Feeling afraid : Nearly every day GAD7 Total Score : 21 Problems make work, home, or dealing with others : Somewhat difficult NENA MCKEON [facility] - 08/24/2015 15:08 MARKING MACHINE TENDER Source: [employer] Document Id: [id number] MARKING MACHINE TENDER!11 ING MACHINE TENDER Amariliscellaneous - Nena Mckeon C.MBrigitte - 08/24/2015 3:08 PM CST PHQ-9 PHQ-9 Entered On: 08/24/2015 15:13 MARKING MACHINE TENDER Performed On: 08/24/2015 15:08 MARKING MACHINE TENDER by NENA MCKEON CMA PHQ-9 Little interest or pleasure in doing things : Nearly every day Feeling down, depressed, or hopeless : Nearly every day Trouble falling or staying asleep, or sleeping too much : Nearly every day Feeling tired or having little energy : More than half the days Poor appetite or overeating : Several days Feeling bad about yourself or that you are a failure : Nearly every day Trouble concentrating on things : Nearly every day Moving or speaking slowly; restless or fidgety : Several days Thoughts that you would be better off /hurting self : More than half the days PHQ-9 Calculated Score : 21 Problems make work, home, or dealing with others : Extremely difficult NENA MCKEON [facility] - 08/24/2015 15:08 MARKING MACHINE TENDER Source: [employer] Document Id: [id number] MARKING MACHINE TENDER!13 ING MACHINE TENDER Kathy - Jami Ross APRN, R.N. - 08/22/2015 5:23 PM MARKING MACHINE TENDER RE: Reminder Msg Document Contains Addenda Addendum by JAMI ROSS APRN on 25 August 2015 16:14:40 MARKING MACHINE TENDER Patient scheduled for next Friday08-29-15 at 5 PM. See note Addendum by NENA MCKEON CMA on 24 August 2015 15:15:17 MARKING MACHINE TENDER From: NENA MCKEON CMA ([facility] 2W Nurse) To: JAMI ROSS APRN; Sent: 08/24/2015 15:15:17 MARKING MACHINE TENDER ! Show up: 08/24/2015 15:15:00 MARKING MACHINE TENDER Subject: RE: Reminder Msg Addendum by NENA MCKEON CMA on 24 August 2015 15:15:12 MARKING MACHINE TENDER Patient notified: GAD7 Score 21, PHQ9 Score 21. Patient would like to come in [place] having a lot of anxiety, has been going to counseling in [place], but still struggling. Patient states Chica offered to stayuntil 5 some time, are you willing to do this. Patient states anyday would work, just let him know. OK to LM on phone he is at work now. thanks, Addendum by VIVEK HUYNH CMA on 24 August 2015 10:30:06 MARKING MACHINE TENDER Called pt & left message to call back. Addendum by MATI TOBAR on 23 August 2015 08:48:11 MARKING MACHINE TENDER patient returned call - wants call back at [phone] From: JAMI ROSS APRN To: [facility] 2W Nurse; Sent: 08/22/2015 17:23:53 MARKING MACHINE TENDER Show up: 08/22/2015 17:23:00 MARKING MACHINE TENDER Subject: RE: Reminder Msg LMTCB. If patient calls back, please complete the PHQ-9 and MARCOS-7. Ask him how his anxiety and depression symptoms are. Has he been seeing the counselor in [place]? He will need to try to set up a visit with me shortly if he needs med refills. Thanks From: JAMI ROSS APRN To: JAMI ROSS APRN; Sent: 08/09/2015 07:46:40 MARKING MACHINE TENDER Show up: 08/22/2015 07:46:00 MARKING MACHINE TENDER Subject: Reminder Msg Please Remember to: Contact patient for follow-up of depression and anxiety. Complete PHQ-9 and MARCOS-7. [phone] PATIENT: ( ) Call Patient ( ) Ask Patient to ( ) ( ) Call Relative ( ) Schedule Patient ( ) ( ) Call for Lead Technician ( ) Follow up on Results ( ) Other: PROVIDER: ( ) Call Physician ( ) Call Pharmacist ( ) Call Lab ( ) Other: Special Instructions: Comments: Source: [facility] POWERCHART Document Id: [id number] Electronically signed by Conversion, [facility] Type Mapper [id number] at 11/23/2016 9:30 AM CDT Miscellaneous - Jami Ross APRN, R.N. - 08/09/2015 7:44 AM MARKING MACHINE TENDER Ambulatory Patient Summary [address] [id number] Visit Information Name: RONAN MAGALLANES [facility] Number: [id number] Current Date: 08/09/2015 07:44:32 Physicians Attending Provider: JAMI ROSS APRN Primary [...] two times a day Do notfill until 2-2-16. AM & Noon LORazepam (Ativan 0.5 mg oral tablet) 1 Tablet(s), Oral, two times a day as needed for Anxiety For panic attacks New Routed to Printer sertraline (Zoloft 50 mg oral tablet) 1 Tablet(s), Oral, once a day 1/2 tab for one week than increase to 1 full tab Stop Taking the Following Medications: diazepam (Valium 5 mg oral tablet) Medication list as of 08-09-15 07:44 Attention: If you have any medications at [...] Electronically Signed By: JAMI ROSS APRN Signed On:09-AUG-2015 07:44:26 Your Allergies & Intolerances Substance Reaction Symptoms [...] if you dont have one. Go to [email or web address] and click on Create Your Account. Then, follow the directions to complete the online form. Youll be asked for your [facility] number which you can find at the top of this document. Your Goals/Additional instructions: Source: [facility] POWERCHART Document Id: [id number] ING MACHINE TENDER Miscellaneous - Jami Ross APRN, R.N. - 08/09/2015 7:44 AM MARKING MACHINE TENDER Ambulatory Discharge Medication List [facility] [address] [place] [id number] Visit Information Name: RONAN MAGALLANES [facility] Number: [id number] Visit Date: 08/09/2015 07:44:31 Attending Provider: JAMI ROSS APRN Primary Care [...] Do notfill until 16. AM & Noon LORazepam (Ativan 0.5 mg oral tablet) 1 Tablet(s), Oral, two times a day as needed for Anxiety For panic attacks New Routed to Printer sertraline (Zoloft 50 mg oral tablet) 1 Tablet(s), Oral, once a day 1/2 tab for one week than increase to 1 full tab Stop Taking the Following Medications: diazepam (Valium 5 mg oral tablet) Medication list as of 08-09-15 07:44 Attention: If you have any medications at [...] Electronically Signed By: JAMI ROSS APRN Signed On:09-AUG-2015 07:44:26 Additional Information: Source: [facility] POWERCHART Document Id: [id number] ING MACHINE TENDER Miscellaneous - Nerissa Sanz, L.P.N. - 08/08/2015 10:11 AM MARKING MACHINE TENDER Adult Information Technology Auditor Intake/History Adult Information Technology Auditor Intake/History Entered On: 08/08/2015 10:17 MARKING MACHINE TENDER Performed On: 08/08/2015 10:11 MARKING MACHINE TENDER by NERISSA SANZ LPN Intake Chief Complaint : Anxiety Bipolar Pt is requesting that due to his anxiety and depression on top of being bipolar, pt is requesting whit placed on disability/social security Peripheral Pulse Rate : 74 /min Respiratory Rate : 14 /min Systolic Blood Pressure : 110 mmHg Diastolic Blood Pressure : 70 mmHg NIBP Mean : 83 mmHg BP Location : Right upper extremity Blood Pressure Cuff Size : Regular Actual Weight : 73.2 kg(Converted to: 161 lb 6 oz) Weight Source : Standing scale Dosing Weight Clinic : 73.2 kg NERISSA SANZ LPN - 08/08/2015 10:11 MARKING MACHINE TENDER General Info Information Given By : Patient Languages : Malay Is Patient Female and 13-50 no hysterectomy : No NERISSA SANZ LPN - 08/08/2015 10:11 MARKING MACHINE TENDER Subjective Pain Symptoms : No NERISSA SANZ LPN - 08/08/2015 10:11 MARKING MACHINE TENDER Dependent Habits Exposure to Tobacco Smoke : Patient smokes Smoking Status : Current every day smoker Tobacco 2A : Yes Tobacco Use/Currently Using : Yes Tobacco Use/Last 30 Days : Yes Tobacco Use/Last 12 months : Yes Type : Cigarettes: Less than 20 per day Tobacco Use/Advised to Quit : Yes NERISSA SANZ LPN - 08/08/2015 10:11 MARKING MACHINE TENDER Caffeine Use Grid Caffeine Use : Current Type : Coffee, Soft drinks Frequency : Daily NERISSA SANZ LPN - 08/08/2015 10:11 MARKING MACHINE TENDER Source: [employer] Document Id: [id number] MARKING MACHINE TENDER!33 ING MACHINE TENDER Miscellaneous - Jami Ross APRN, R.N. - 08/08/2015 9:45 AM MARKING MACHINE TENDER PHQ-9 PHQ-9 Entered On: 08/09/2015 7:30 MARKING MACHINE TENDER Performed On: 08/08/2015 9:45 MARKING MACHINE TENDER by JAMI ROSS APRN PHQ-9 Little interest or pleasure in doing things : Several days Feeling down, depressed, or hopeless : Nearly every day Trouble falling or staying asleep, or sleeping too much : Nearly every day Feeling tired or having little energy : More than half the days Poor appetite or overeating : More than half the days Feeling bad about yourself or that you are a failure : Nearly every day Trouble concentrating on things : More than half the days Moving or speaking slowly; restless or fidgety : More than half the days Thoughts that you would be better off /hurting self : Several days PHQ-9 Calculated Score : 19 Problems make work, home, or dealing with others : Somewhat difficult JAMI ROSS APRN - 08/09/2015 7:29 MARKING MACHINE TENDER [facility]: [facility] Document Id: [id number] MARKING MACHINE TENDER!13 ING MACHINE TENDER documented in this encounter Plan of Treatment Not on filedocumented as of this encounter Visit Diagnoses Not on filedocumented in this encounter Additional Health Concerns Assessment Noted Time PHQ-9 Depression Total Score: 21 08/24/2015 3:08 PM CS T documented as of this encounter
--- OUTSIDE RECORDS SUMMARY | 2022-05-17 14:25 | XMS_ITS | Encounter Summary ---
:1985 Author Organization [facility] Address [address] [place] [address] Care Team Providers Name Role Phone Unavailable Primary Care Provider Unavailable Encounter Details Date Type Department Care Team Description 12/17/2013 Hospital Encounter HX NO MAPPING Jonathon Strong III, M.D. (Skip), M.P.H. [address] [place], [place] [address] (Wo rk) Social History [...]
--- OUTSIDE RECORDS SUMMARY | 2022-05-17 14:25 | XMS_ITS | Encounter Summary ---
:1985 Author Organization [facility] Address [address] [place] [address] Care Team Providers Name Role Phone Unavailable Primary Care Provider Unavailable Encounter Details Date Type Department Care Team Description 05/17/2014 Hospital Encounter HX NO MAPPING Nisha Andrade M.D. [address], [place] [phone] (Wo rk) Social History [...]
--- OUTSIDE RECORDS SUMMARY | 2022-05-17 14:25 | XMS_ITS | Encounter Summary ---
:1985 Author Organization [facility] Address [address] [place] [address] Care Team Providers Name Role Phone Jami Ross APRN, C.N.P., M.S. Primary Care Pro vider Reason for Visit Reason Onset Date Comments Appointment 05/05/2017 ED follow up Encounter Details Date Type Department Care Team Description 05/05/2017 Clinical Communication Department of Taylor Salinas (ED Family Medicine, C, R.N. follow up) [place], in [address] [place] [address] [place] [phone] Social History Tobacco Use Types Packs/Day Years Used Date Smoking Tobacco: Every Day Sex Assigned at Date Recorded Not on file documented as of this encounter Miscellaneous Notes Telephone Encounter - Jami Ross APRN, R.N. - 05/07/2017 1:57 PM CST This is a duplicate message. I responded yesterday that I don't have availability and he will need to be scheduled with any available provider. NGEUR OPERATOR Telephone Encounter - Yoly Merida - 05/07/2017 12:55 PM CST Please advise if pt can be fit into your schedule NGEUR OPERATOR Telephone Encounter - Taylor Meadows R.N. - 05/05/2017 1:07 PM CST [facility] fax ED visit: 05/05/17 ED reason: Concussion Follow up: 3 days Patient phone: unable to read clearly what is written NGEUR OPERATOR documented in this encounter Plan of Treatment Not on filedocumented as of this encounter Visit Diagnoses Not on filedocumented in this encounter Additional Health Concerns Assessment Noted Time PHQ-9 Depression Total Score: 03/05/2017 8:09 AM CD T documented as of this encounter Care Teams Government Employee Relationship Specialty Start Date End Date Jami Ross APRN, C.N.P., PCP - General 12/12/16 05/14/17 M.S. [address] [place] [address] documented as of this encounter
--- OUTSIDE RECORDS SUMMARY | 2022-05-17 14:25 | XMS_ITS | Encounter Summary ---
:1985 Author Organization [facility] Address [address] [place] [address] Care Team Providers Name Role Phone Zeke Duncan APRN, C.N.P., D.N.P., R.N. Primary Care P ernst Unavailable Encounter Details Date Type Department Care Team Description 05/19/2017 Orders Only Department of [facility] Arabella Hudson M.D. Medicine, [facility], [address] in [place], [place] [address] [phone] [place] [address] [phone] Social History Tobacco Use Types Packs/Day Years [...] documented as of this encounter Care Teams Lining Machine Operator Relationship Specialty Start Date End Date Zeke Duncan, PCP - General Certified Nurse Practitioner 04/3003/10/18 KIKI, C.N.P., D.N.P., R.N. documented as of this encounter
--- OUTSIDE RECORDS SUMMARY | 2022-05-17 14:25 | XMS_ITS | Encounter Summary ---
:1985 Author Organization [facility] Address [address] [place] [address] Care Team Providers Name Role Phone Zeke Duncan APRN, C.N.P., D.N.P., R.N. Primary Care P ernst Unavailable Encounter Details Date Type Department Care Team Description 05/08/2017 Clinical Communication Department of [facility], Jami Esteves APRN, Clinic, in [place] o[place], M.S . [place] [address] [facility] [address] [place] [phone] Social History Tobacco Use Types Packs/Day Years [...] documented as of this encounter Care Teams Head Up Operator Relationship Specialty Start Date End Date Zeke Duncan, PCP - General Certified Nurse Practitioner 04/3003/10/18 KIKI, C.N.P., D.N.P., R.N. documented as of this encounter
--- OUTSIDE RECORDS SUMMARY | 2022-05-17 14:25 | XMS_ITS | Encounter Summary ---
:1985 Author Organization [facility] Address [address] [place] [address] Care Team Providers Name Role Phone Unavailable Primary Care Provider Unavailable Encounter Details Date Type Department Care Team Description 04/06/2014 Hospital Encounter HX NO MAPPING Quirino Wheatley M.D. [address] [place], [place] [phone] (Wo rk) Social History Tobacco Use Types Packs/Day Years Used Date Smoking Tobacco: Never Assessed Sex Assigned at Date Recorded Not on file documented as of this encounter Plan of Treatment Not on filedocumented as of this encounter Procedures Procedure Name Priority Date/Time Associated Diagnosis Comme nts CT ABDOMEN PELVIS Routine 04/06/2014 5:22 AM Resu lts for this WITH IV CONTRAST CDT procedure a re in the results section. documented in this encounter Results CT Abdomen Pelvis with IV Contrast (04/06/2014 5:22 AM CDT) Anatomical Region Laterality Modality Abdomen, Pelvis N/A Computed Tomography Specimen (Source) Anatomical Collection Method Collection Time Re ceived Time Location / / Volume Laterality 04/06/2014 5:22 AM CDT Addenda Addendum by Provider, Kristi Dawson 04/06/2014 5:22 AM CDT RAD^^^OW CT Abdomen Pelvis w ??contrast 04/06/2014 05:22:00 Impressions 04/06/2014 8:01 AM CDT Probable infected patent urachus. Consultation with urology recommended. Probable chronic cy stitis. Narrative 04/06/2014 8:01 AM CDT EXAM: CT Abdomen/Pelvis w/ contrast INDICATION: abddominal pain,prior append ectomy,prior multiple urological surgeries with known epispadi us as child,now with abdominal pain periumbilically since mid night COMPARISON: Abdominal x-ray January 05 Technique: 100 mL of Omnipaque 300 were injected during there are coronal and sagittal reconstructions. FINDINGS: Lung:Clear lung bases. Pleural Fluid:No Negative abdomen. Stranding:Midline subcutaneous between t he umbilicus and the urinary bladder anterior to the patent urachus. Appendix:Appendectomy Ascites:No No adenopathy Spine:Negative Sigmoid:Negative Free Fluid:No Inguinal Hernia:No Urinary Bladder:Patent urachus from the umbilicus to the dome of the bladder. AP diameter of the channel is 7 mm. Wall of the urinary bladder is abnormally thick. Penis: Surgery probably also involved th e urethra. Urologic consultation recommended. Prostate:Several midline coarse calcific ations, possibly iatrogenic. Rectum:An abnormality is not identified. Digital rectal examination recommended. Pelvic Nodes:No adenopathy Inguinal Nodes:Not enlarged Pelvic Bones:Negative Procedure Note Rubens Taveras M.D. / ProviderRishi M.D. - 11/09/2016 EXAM: CT Abdomen/Pelvis w/ contrast INDICATION: abddominal pain,prior append ectomy,prior multiple urological surgeries with known epispadi us as child,now with abdominal pain periumbilically since mid night COMPARISON: Abdominal x-ray January 05 3 Technique: 100 mL of Omnipaque 300 were injected during there are coronal and sagittal reconstructions. FINDINGS: Lung:Clear lung bases. Pleural Fluid:No Negative abdomen. Stranding:Midline subcutaneous between t he umbilicus and the urinary bladder anterior to the patent urachus. Appendix:Appendectomy Ascites:No No adenopathy Spine:Negative Sigmoid:Negative Free Fluid:No Inguinal Hernia:No Urinary Bladder:Patent urachus from the umbilicus to the dome of the bladder. AP diameter of the channel is 7 mm. Wall of the urinary bladder is abnormally thick. Penis: Surgery probably also involved th e urethra. Urologic consultation recommended. Prostate:Several midline coarse calcific ations, possibly iatrogenic. Rectum:An abnormality is not identified. Digital rectal examination recommended. Pelvic Nodes:No adenopathy Inguinal Nodes:Not enlarged Pelvic Bones:Negative IMPRESSION: Probable infected patent ura chus. Consultation with urology recommended. Probable chronic cy stitis. Angy Artis(R)(CT), R.T.(R) IMG CT PROCEDUR ES documented in this encounter Visit Diagnoses Not on filedocumented in this encounter Additional Health Concerns Assessment Noted Time PHQ-9 Depression Total Score: 1 02/26/2012 12:00 PM CD T documented as of this encounter
--- OUTSIDE RECORDS SUMMARY | 2022-05-17 14:26 | XMS_ITS | Encounter Summary ---
:1985 Author Organization [facility] Address [address] [place] [address] Care Team Providers Name Role Phone Unavailable Primary Care Provider Unavailable Encounter Details Date Type Department Care Team Description 01/05/2013 Hospital Encounter HX [facility] MRI Oscar Becerra M.D. [address] [place], [place] [phone] (Wo rk) Social History Tobacco Use Types Packs/Day Years Used Date Smoking Tobacco: Never Assessed Sex Assigned at Date Recorded Not on file documented as of this encounter Miscellaneous Notes Miscellaneous - Oscar Becerra M.D. - 01/08/2013 8:40 AM CDT Return to Work Status Return to Work Status Entered On: 01/08/2013 8:40 CDT Performed On: 01/08/2013 8:40 CDT by OSCAR BECERRA MD Return to Work Status Date/Time of Injury : 01/08/2013 8:40 CDT Work Status : Return to work no restrictions Return to Work Start Date : 01/11/2013 CDT OSCAR BECERRA MD - 01/08/2013 8:40 CDT Source: [facility] POWERCHART Document Id: [id number]!5 Miscellaneous - Oscar eBcerra M.D. 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 Addendum by YOLIE MONTEMAYOR on 07 January 2013 10:28:58 CDT From: YOLIE MONTEMAYOR (DAIN Becerra Nurse) To: OSCAR BECERRA MD; Sent: 01/07/2013 10:28:58 CDT Show up: 01/07/2013 10:28:00 CDT Subject: RE: Results Notification Addendum by YOLIE MONTEMAYOR on 07 January 2013 10:28:54 CDT pt notified of normal MRI results. pt states he has some discomfort depending on position of knee, like turning or going up steps.. Pt states he does needs work release papers back and okay from physician he can go back to work...mr Addendum by YOLIE MONTEMAYOR on 07 January 2013 08:34:00 CDT msg to call mr From: OSCAR BECERRA MD To: DAIN Becerra Nurse; Sent: 01/06/2013 17:58:57 CDT ! Show up: 01/06/2013 22:58:57 [facility] Subject: Results Notification Actions: Notify patient of results Reminder Comments: normal MRI, please ask patient if still having symptoms. Results: Date Result Type Result Name 01/05/2013 12:03 Radiology MR Knee Left w/o contrast Source: [facility] POWERCHART Document Id: [id number] Electronically signed by Conversion, [facility] Outside Barrel Lathe Operator [id number] at 11/27/2016 12:40 AM CDT documented in this encounter Plan of Treatment Not on filedocumented as of this encounter Procedures Procedure Name Priority Date/Time Associated Diagnosis Comme nts MR KNEE LEFT Routine 01/05/2013 10:30 AM Results for this WITHOUT IV CONTRAST CDT procedur e are in the results section. DX ABDOMEN 1 VIEW Routine 01/05/2013 10:25 AM Res ults for this CDT procedure are i n the results section. documented in this encounter Results MR Knee Left without IV Contrast (01/05/2013 10:30 AM CDT) Anatomical Region Laterality Modality Lower Extremity, Knee Left Magnetic Resonance Specimen (Source) Anatomical Collection Method Collection Time Re ceived Time Location / / Volume Laterality 01/05/2013 10:30 AM CDT Addenda Addendum by Provider, Kristi Dawson 01/05/2013 10:30 AM CDT RAD^^^OW MR Knee Left wo contrast 01/05/2013 10:30:00 Impressions 01/05/2013 12:00 PM CDT Essentially normal MRI appearance of the right knee with no appreciable MRI evidence of soft tissue or osseous injury. Narrative 01/05/2013 12:00 PM CDT EXAM: ??MR Knee Left w/o contrast AGE: ??27 years old. GENDER: ??Male. INDICATION: ??knee pain, concern for med ial meniscus COMPARISON: ??None. FINDINGS: ANTERIOR CRUCIATE LIGAMENT: ??Intact/nor mal. POSTERIOR CRUCIATE LIGAMENT: ??Intact/no rmal MEDIAL COLLATERAL LIGAMENT: ??Intact/nor mal LATERAL COLLATERAL LIGAMENT: ??Intact/no rmal POSTEROLATERAL CORNER: ??Intact/normal IT BAND: ??Intact/normal MEDIAL MENISCUS: ??Intact/normal LATERAL MENISCUS: ??Intact/normal CHONDROMALACIA: ??No focal areas of adam dral injury. PATELLAR LOCATION: ??Neutral MEDIAL PATELLOFEMORAL RETINACULUM: ??Int act/normal EXTENSOR MECHANISM: ??Intact/normal BONES: ??No stress or insufficiency frac tures. No contusions. No AVN. JOINT EFFUSION: ??Physiologic POPLITEAL CYST: ??None MUSCLES, ARTERIES, VEINS, AND NERVES: ?? Normal Procedure Note Demetri Vidales M.D. / Provider, Rishi valdez M.D. - 11/15/2016 EXAM: MR Knee Left w/o contrast AGE: [age] years old. GENDER: Male. INDICATION: knee pain, concern for media l meniscus COMPARISON: None. FINDINGS: ANTERIOR CRUCIATE LIGAMENT: Intact/susanne l. POSTERIOR CRUCIATE LIGAMENT: Intact/norm al MEDIAL COLLATERAL LIGAMENT: Intact/susanne l LATERAL COLLATERAL LIGAMENT: Intact/norm al POSTEROLATERAL CORNER: Intact/normal IT BAND: Intact/normal MEDIAL MENISCUS: Intact/normal LATERAL MENISCUS: Intact/normal CHONDROMALACIA: No focal areas of chondr al injury. PATELLAR LOCATION: Neutral MEDIAL PATELLOFEMORAL RETINACULUM: Intac t/normal EXTENSOR MECHANISM: Intact/normal BONES: No stress or insufficiency fractu res. No contusions. No AVN. JOINT EFFUSION: Physiologic POPLITEAL CYST: None MUSCLES, ARTERIES, VEINS, AND NERVES: No rmal IMPRESSION: Essentially normal MRI appearance of the right knee with no appreciable MRI evidence of soft tissue or osseous injury. Chela So M.S. [facility] MRI PROCEDURES DX Abdomen 1 View (01/05/2013 10:25 AM CDT) Anatomical Region Laterality Modality Abdomen N/A Radiographic Imaging Specimen (Source) Anatomical Collection Method Collection Time Re ceived Time Location / / Volume Laterality 01/05/2013 10:25 AM CDT Addenda Addendum by ProviderEunice M.D. o n 01/05/2013 10:25 AM CDT RAD^^^OW XR Abdomen 1 View 01/05/2013 10:25:28 Impressions 01/05/2013 10:30 AM CDT ??No metallic foreign bodies. Narrative 01/05/2013 10:30 AM CDT EXAM: ??XR Abdomen 1 View AGE: ??27 years old. GENDER: ??Male. INDICATION: ??? catheter r/o metal PRE_M RI COMPARISON: ??None. FINDINGS: ??No metallic foreign bodies. Procedure Note Demetri Vidales M.D. / Provider, Rishi valdez M.D. - 11/15/2016 EXAM: XR Abdomen 1 View AGE: [age] years old. GENDER: Male. INDICATION: ? catheter r/o metal PRE_MRI COMPARISON: None. FINDINGS: No metallic foreign bodies. IMPRESSION: No metallic foreign bodies. Aislinn Schultz(R) [facility] DIAGNOSTIC IMAGING PROC EDURES documented in this encounter Visit Diagnoses Not on filedocumented in this encounter Additional Health Concerns Assessment Noted Time PHQ-9 Depression Total Score: 1 02/26/2012 12:00 PM CD T documented as of this encounter
--- OUTSIDE RECORDS SUMMARY | 2022-05-17 14:26 | XMS_ITS | Encounter Summary ---
:1985 Author Organization [facility] Address [address] [place] [address] Care Team Providers Name Role Phone Unavailable Primary Care Provider Unavailable Encounter Details Date Type Department Care Team Description 11/13/2012 Hospital Encounter HX NO MAPPING Quirino Wheatley M.D. [address], [place] [phone] (Wo rk) Social History [...]
--- OUTSIDE RECORDS SUMMARY | 2022-05-17 14:26 | XMS_ITS | Encounter Summary ---
:1985 Author Organization [facility] Address [address] [place] [address] Care Team Providers Name Role Phone Unavailable Primary Care Provider Unavailable Encounter Details Date Type Department Care Team Description 02/26/2012 - Hospital Encounter HX [facility] 2 Jennifer Altman [facility] 02/27/2012 Kristi Adams [address] [place] [address] Social History Tobacco Use Types Packs/Day Years Used Date Smoking Tobacco: Never Assessed Sex Assigned at Date Recorded Not on file documented as of this encounter Last Filed Vital Signs Vital Sign Reading Time Taken Comments Blood Pressure 127/92 02/27/2012 8:21 AM CDT Pulse 76 02/27/2012 8:21 AM CDT Temperature - - Respiratory Rate 16 02/27/2012 8:21 AM CDT Oxygen Saturation - - Inhaled Oxygen Concentration - - Weight 66.1 kg (145 lb 11.6 oz) 02/27/2012 9:03 AM CDT Height 184 cm (6' 0.44) 02/26/2012 10:00 AM CDT Body Mass Index 19.52 02/26/2012 10:00 AM CDT documented in this encounter Plan of Treatment Not on filedocumented as of this encounter Visit Diagnoses Not on filedocumented in this encounter Additional Health Concerns Assessment Noted Time PHQ-9 Depression Total Score: 1 02/26/2012 12:00 PM CD T documented as of this encounter
--- OUTSIDE RECORDS SUMMARY | 2022-05-17 14:26 | XMS_ITS | Encounter Summary ---
:1985 Author Organization [facility] Address [address] [place] [address] Care Team Providers Name Role Phone Unavailable Primary Care Provider Unavailable Encounter Details Date Type Department Care Team Description 12/10/2010 Hospital Encounter HX NO MAPPING Maria G Deng M.D. Social History Tobacco Use Types Packs/Day Years Used Date Smoking Tobacco: Never Assessed Sex Assigned at Date Recorded Not on file documented as of this encounter Plan of Treatment Not on filedocumented as of this encounter Visit Diagnoses Not on filedocumented in this encounter
--- OUTSIDE RECORDS SUMMARY | 2022-05-17 14:26 | XMS_ITS | Encounter Summary ---
:1985 Author Organization [facility] Address [address] [place] [address] Care Team Providers Name Role Phone Unavailable Primary Care Provider Unavailable Encounter Details Date Type Department Care Team Description 12/10/2010 - Hospital Encounter HX [facility] 12/12/2010 Social History Tobacco Use Types Packs/Day Years Used Date Smoking Tobacco: Never Assessed Sex Assigned at Date Recorded Not on file documented as of this encounter Plan of Treatment Not on filedocumented as of this encounter Visit Diagnoses Not on filedocumented in this encounter
--- OUTSIDE RECORDS SUMMARY | 2022-05-17 14:26 | XMS_ITS | Encounter Summary ---
:1985 Author Organization [facility] Address [address] [place] [address] Care Team Providers Name Role Phone Unavailable Primary Care Provider Unavailable Encounter Details Date Type Department Care Team Description 12/09/2012 Hospital Encounter HX [facility] Oscar Becerra M.D. [address] [place] [phone] (Wo rk) Social History Tobacco Use Types Packs/Day Years Used Date Smoking Tobacco: Never Assessed Sex Assigned at Date Recorded Not on file documented as of this encounter Last Filed Vital Signs Vital Sign Reading Time Taken Comments Blood Pressure 130/82 12/09/2012 11:09 AM CDT Pulse 76 12/09/2012 11:09 AM CDT Temperature - - Respiratory Rate 16 12/09/2012 11:09 AM CDT Oxygen Saturation - - Inhaled Oxygen Concentration - - Weight 78.5 kg (173 lb 1 oz) 12/09/2012 11:09 AM CDT Height - - Body Mass Index 23.19 02/26/2012 10:00 AM CDT documented in this encounter Progress Notes Oscar Becerra M.D. - 12/09/2012 11:00 AM CDT [id number] CHIEF COMPLAINT / REASON FOR VISIT Concerns about ADHD. HISTORY OF PRESENT ILLNESS This is a 27-year-old gentleman who comes in today with concerns about wanting to be re-evaluated for ADHD. The patient states that he has had difficulty ever since he was a young child. He states thatin grade school he was evaluated formally for ADHD and was recommended to start on medications but did not at that time due to his young age. Then he seemed to do well but when he got to high school his grades suffered. Therefore he was re-evaluated again and was going to start medications but the patient lost his insurance at that time and so subsequently did not start medications. He subsequently dropped out of high school and did not graduate or get a GED. This was around age 18 to 19. He has tried to be employed since then but has really never been able to hold down a job for more than 6 months. Patient states that he has a difficult time focusing and staying on task. He has a difficult time completing tasks and has a difficult time remembering what tasks he has been asked to do. Often times he will bounce from 1 thing to the next without ever completing the task. He also has a history of depression. Has been treated with Zoloft 50 mg by mouth daily previously. He has not been on that recently and feels that he has been doing well. He denies any mood issues. He denies any feeling of being down or depressed. He denies any thoughts of hurting himself. He has had previous attempts in the past. CURRENT MEDICATIONS Currently are none. ALLERGIES Are none. SYSTEMS REVIEW He denies any headaches or vision changes. No hearing changes. No chest pains. No shortness of breath. No abdominal pains. No nausea, vomiting, diarrhea, constipation. VITAL SIGNS Per EMR. PHYSICAL EXAM GENERAL: He is alert and oriented x 3. Appears in no acute distress. HEENT: Pupils equally round and reactive to light and accommodation. Extraocular movements are intact. Fundi examined and appear normal. Tympanic membranes are clear bilaterally. Oropharynx is free from erythema or exudate. CARDIOVASCULAR: Heart is regular rate and rhythm without any murmurs, rubs, or gallops. RESPIRATORY: Lungs clear to auscultation bilaterally. IMPRESSION / REPORT / PLAN Concerns for possibility of ADHD especially given the patient's difficulty with school and difficulty with work and holding a job. We are going to have him have a formal evaluation done at [facility]. We will await their recommendations. May consider starting a stimulant medication. Patient currently will stay off his depression medications as he seems to be doing well. Oscar Becerra M.D./farhan Electronically Signed By: OSCAR BECERRA MD On: 12/16/2012 01:40 PM Source[facility] Document Id: [id number] documented in this encounter Miscellaneous Notes Miscellaneous - Veronica Rea R.N. - 04/02/2013 3:06 PM CDT Med Management-Adderall Document Contains Addenda Addendum by YOLIE MONTEMAYOR on 02 April 2013 17:17:30 CDT rx to info desk mr Addendum by OSCAR BECERRA MD on 02 April 2013 16:53:47 CDT From: OSCAR BECERRA MD To: DAIN Becerra Nurse; Sent: 04/02/2013 16:53:47 CDT Subject: RE: Med Management-Adderall Addendum by OSCAR BECERRA MD on 02 April 2013 16:53:43 CDT Approved Order:dextroamphetamine-amphetamine (Adderall 20 mg oral tablet) 1 tab(s) PO 2xDay AM & Noon Qty: 60 tab(s) Refills: 0 Substitutions Allowed Print - [id number] Signed by OSCAR BECERRA MD 04/02/2013 16:53:38 Addendum by SYBIL VELAZQUEZ RN on 02 April 2013 16:34 CDT Patient called to check on status of refill. Advised provider has request. Addendum by YOLIE MONTEMAYOR on 02 April 2013 15:25:07 CDT From: YOLIE MONTEMAYOR (DAIN Becerra Nurse) To: OSCAR BECERRA MD; Sent: 04/02/2013 15:25:07 CDT Subject: FW: Med Management-Adderall From: VERONICA REA To: DAIN Becerra Nurse; Sent: 04/02/2013 15:06:04 CDT ! Subject: Med Management-Adderall On hold pending signature Order:dextroamphetamine-amphetamine (Adderall 20 mg oral tablet) 1 tab(s) PO 2xDay AM & Noon Qty: 60 tab(s) Refills: 0 Substitutions Allowed Print - [id number] on [id number] (from [id number]) in session 4 Caller is: ( ) Patient ( ) Mother ( ) Father ( ) Spouse ( ) Daughter ( ) Son ( ) Pharmacy ( ) Other: Physician: Shay Patient MRN #: Reason for Call: Message: S. Adderall refill B. last appt: 01-01-13 future appt: none A. Pt is completely out of pills. R. Please give a call back today if possible. Advised the pt to give at least 2- 3 days for refills. Advice/Action: Source used: ( ) Verbalizes understanding [...] back cell phone number ( ) Source: [facility] POWERCHART Document Id: [id number] Telephone Encounter - Veronica Rea R.N. - 12/29/2012 1:08 PM CDT Update on ADHD eval Document Contains Addenda Addendum by OSCAR BECERRA MD on 29 December 2012 15:04:47 CDT From: OSCAR BECERRA MD To: DAIN Becerra Nurse; Sent: 12/29/2012 15:04:47 CDT Subject: RE: Update on ADHD eval Addendum by OSCAR BECERRA MD on 29 December 2012 15:04:44 CDT discuss at upcoming appointment. Addendum by GAMAL JAQUEZ on 29 December 2012 13:38:53 CDT From: GAMAL JAQUEZ (DAIN Becerra Nurse) To: OSCAR BECERRA MD; Sent: 12/29/2012 13:38:53 CDT Subject: FW: Update on ADHD eval From: VERONICA REA To: DAIN Becerra Nurse; Sent: 12/29/2012 13:08:29 CDT Subject: Update on ADHD eval Caller is: ) Patient ( ) Mother ( ) Father ( ) Spouse ( ) Daughter ( ) Son ( ) Pharmacy ( ) Other: Physician: Shay Patient MRN #: Reason for Call: Message: S. Update on ADHD testing B. The psychologist wanted to let Dr. Day know he does have ADHD. But, it will take about two weeks to write up the paper and will fax this to Dr. Day. A. R. Please give a call back to let him know how Dr. Day would like to proceed. Discuss at his upcoming appt? fyi~ He already has an appt on 01-01-13 for a different reason. Advice/Action: Source used: ( ) Verbalizes understanding [...] back cell phone number ( ) Source: [facility] POWERCV-Sight Document Id: [id number] Miscellaneous - Conversion, Historical Provider Ser - 12/09/2012 11:09 AM CDT Adult Replenishment Buyer Intake/History Adult Replenishment Buyer Intake/History Entered On: 12/09/2012 11:11 CDT Performed On: 12/09/2012 11:09 CDT by JUNIOR DE LEON Intake Chief Complaint : would like to be evaluated for ADHS Peripheral Pulse Rate : 76 /min Respiratory Rate : 16 /min Heart Rhythm : Regular Systolic Blood Pressure : 130 mmHg Diastolic Blood Pressure : 82 mmHg NIBP Mean : 98 mmHg BP Location : Right upper extremity Blood Pressure Cuff Size : Regular Actual Weight : 78.5 kg(Converted to: 173 lb 1 oz) Dosing Weight Clinic : 78.5 kg JUNIOR DE LEON - 12/09/2012 11:09 CDT General Info Information Given By : Patient Languages : Danish JUNIOR DE LEON - 12/09/2012 11:09 CDT Subjective Pain Symptoms : No JUNIOR DE LEON - 12/09/2012 11:09 CDT Dependent Habits Tobacco Use/Currently Using : Yes Smoking Status : Current every day smoker JUNIOR DE LEON - 12/09/2012 11:09 CDT Caffeine Use Grid Caffeine Use : Current Type : Coffee, Soft drinks Frequency : Daily JUNIOR DE LEON - 12/09/2012 11:09 CDT Source: [employer] Document Id: [id number] CDT!26 Miscellaneous - Conversion, Historical Provider Ser - 12/09/2012 11:07 AM CDT Health Assessment Health Assessment Entered On: 12/09/2012 11:09 CDT Performed On: 12/09/2012 11:07 CDT by JUNIOR DE LEON Health Assessment Complete Health Assessment Complete or Modified : Annual Health Assessment Annual Health Assessment Completed : Yes JUNIOR DE LEON - 12/09/2012 11:07 CDT Nutrition Nutrition Risk Factors by History Adult : None JUNIOR DE LEON - 12/09/2012 11:07 CDT Functional Current Daily Living Assistance : None JUNIOR DE LEON - 12/09/2012 11:07 CDT Dependent Habits Tobacco Use/Currently Using : Yes Smoking Status : Current every day smoker Alcohol Use : No JUNIOR DE LEON 12/09/2012 11:07 CDT Caffeine Use Grid Caffeine Use : Current Type : Coffee, Soft drinks Frequency : Daily JUNIOR DE LEON 12/09/2012 11:07 CDT Psychosocial Domestic Abuse Concerns : None JUNIOR DE LEON 12/09/2012 11:07 CDT Advance Directive Advanced Directives : No JUNIOR DE LEON 12/09/2012 11:07 CDT Educ Needs Learning Style Preference Adult Grid Patient : Verbal explanation Family : Verbal explanation JUNIOR DE LEON 12/09/2012 11:07 CDT Source: [employer] Document Id: [id number] CDT!25 documented in this encounter Plan of Treatment Not on filedocumented as of this encounter Visit Diagnoses Not on filedocumented in this encounter Additional Health Concerns Assessment Noted Time PHQ-9 Depression Total Score: 1 02/26/2012 12:00 PM CD T documented as of this encounter
--- OUTSIDE RECORDS SUMMARY | 2022-05-17 14:26 | XMS_ITS | Encounter Summary ---
:1985 Author Organization [facility] Address [address] [place] [address] Care Team Providers Name Role Phone Unavailable Primary Care Provider Unavailable Encounter Details Date Type Department Care Team Description 11/13/2012 Hospital Encounter HX NO MAPPING Quirino Wheatley M.D. [address], [place] [phone] (Wo rk) Social History [...]
--- OUTSIDE RECORDS SUMMARY | 2022-05-17 14:26 | XMS_ITS | Encounter Summary ---
:1985 Author Organization [facility] Address [address] [place] [address] Care Team Providers Name Role Phone Unavailable Primary Care Provider Unavailable Encounter Details Date Type Department Care Team Description 01/01/2013 Hospital Encounter HX [facility] Oscar Becerra M.D. [address] [place] [address] (Wo rk) Social History Tobacco Use Types Packs/Day Years Used Date Smoking Tobacco: Never Assessed Sex Assigned at Date Recorded Not on file documented as of this encounter Last Filed Vital Signs Vital Sign Reading Time Taken Comments Blood Pressure 132/70 01/01/2013 9:51 AM CDT Pulse - - Temperature - - Respiratory Rate - - Oxygen Saturation - - Inhaled Oxygen Concentration - - Weight 76.9 kg (169 lb 8.5 oz) 01/01/2013 9:51 AM CDT Height - - Body Mass Index 22.71 02/26/2012 10:00 AM CDT documented in this encounter Progress Notes Oscar Becerra M.D. - 01/01/2013 9:42 AM CDT [id number] CHIEF COMPLAINT/REASON FOR VISIT Follow up ER visit for knee pain. HISTORY OF PRESENT ILLNESS This is a 27-year-old male who comes in today with concerns about knee pain. The patient states on Friday he was playing softball playing third base when another player slid into his left knee. He hit the knee on the anterior aspect. The patient states it was very painful immediately. He heard a popping sensation then he fell to the ground and felt movement and another popping in the knee. He had quite a bit of pressure there as well and had some difficulty standing secondary to pain. He went into the ED in [place] and did have an x-ray which showed no evidence of any fracture. The knee however felt somewhat unstable. He was placed in a knee immobilizer and given crutches. He is continuing to have pain and discomfort more on the medial aspect. When he tries to weight bear he states that that iswhen it feels a little bit more unstable. He has had no swelling over the area and no ecchymosis on the knee, just ecchymosis further down on the coon where he was struck. He has had no previous injuryor surgery to that knee. Also the patient underwent evaluation for ADHD at [facility]. It was felt that he did have ADHD and recommended medications. He would like to start these as well. I do not have the official report from [facility] but should be getting that in the next few weeks. Patient has had difficulty focusing and staying on task and completing tasks especially at his work. CURRENT MEDICATIONS Reviewed and reconciled with the EMR 01/01/2013 with no changes. ALLERGIES Reviewed and reconciled with the EMR 01/01/2013 with no changes. SYSTEMS REVIEW He denies any headaches or vision changes. No hearing changes. No chest pains. No shortness of breath. No abdominal pains. No nauseous. No vomiting, diarrhea or constipation. VITAL SIGNS Per EMR. PHYSICAL EXAMINATION GENERAL: He is alert and oriented x3. Appears in no acute distress. HEENT: Pupils equally round and reactive to light and accommodation. Extraocular movements are intact. CARDIOVASCULAR: Heart is regular rate and rhythm without any murmurs, rubs or gallops. Examination of the left knee reveals tenderness to palpation over the medial aspect of the left kneealong the joint line. ACL anterior drawer sign is negative. Braulio's test is negative. There is tenderness with stressing of the medial collateral ligament. Sensation is grossly intact to light touch and pinprick sensation of all dermatomes. And strength is 5 out of 5 for knee flexion, extension, plantar flexion and dorsiflexion. IMPRESSION/REPORT/PLAN 1. Dztcxc-gixs-bplr-old male with a knee injury. Concern for possibility of medial meniscus injury and medial collateral ligament tear given the tenderness on exam. Also positive Da's sign with stressing of the medial meniscus. We are going to go ahead and proceed with MRI for further evaluation. Patient will be off work for the next 2 weeks. A hinged knee brace given to the patient. He is encouraged to ambulate as tolerated. 2. Attention deficit hyperactivity disorder. We will start the patient on Adderall 10 mg 1 tablet bymouth 2 times a day. We will have him follow up in 1 month. Oscar Becerra M.D./emeli Electronically Signed By: OSCAR BECERRA MD On: 01/30/2013 08:53 AM Source: [facility] MHSDOLBEYNONRADSYS Document Id: [id number] documented in this encounter Miscellaneous Notes Miscellaneous - Conversion, Historical Provider Ser - 04/30/2013 4:43 PM CDT Med Management Document Contains Addenda Addendum by OSCAR BECERRA MD on 03 May 2013 09:47:54 RESPIRATORY THERAPIST ASSISTANT Approved Order:dextroamphetamine-amphetamine (Adderall 20 mg oral tablet) 1 tab(s) PO 2xDay AM & Noon Qty: 60 tab(s) Refills: 0 Substitutions Allowed Print - [id number] Signed by OSCAR BECERRA MD 05/03/2013 09:47:46 Addendum by YOLIE MONTEMAYOR on 30 April 2013 17:13:52 CDT From: YOLIE MONTEMAYOR (DAIN Becerra Nurse) To: OSCAR BECERRA MD; Sent: 04/30/2013 17:13:52 CDT Subject: FW: Med Management From: MAKENZIE JAMES To: DAIN Becerra Nurse; Sent: 04/30/2013 16:43:22 CDT Subject: Med Management On hold pending signature Order:dextroamphetamine-amphetamine (Adderall 20 mg oral tablet) 1 tab(s) PO 2xDay AM & Noon Qty: 60 tab(s) Refills: 0 Substitutions Allowed Print - [id number] on [id number] (from [id number]) in session 12 Caller is: ( ) Patient ( ) Mother ( ) Father ( ) Spouse ( ) Daughter ( ) Son ( ) Pharmacy ( ) Other: Physician: Dr. Becerra Patient MRN #: Reason for Call: Message: S: Refill request B: last ordered 04/02/13. Last visit 01/01/13 A&R Please review proposal. Advice/Action: Source used: ( ) Verbalizes understanding [...] back cell phone number ( ) [facility] Document Id: [id number] Telephone Encounter - Margo Murphy RKristaNKrista - 03/02/2013 12:25 PM CDT Phone Message - Adderall Document Contains Addenda Addendum by YOLIE MONTEMAYOR on 03 March 2013 15:01:58 CDT rx given to pt .mr Addendum by LILIANA PARSONS on 03 March 2013 11:05 CDT Pt looking for Rx for Adderall. INformed that Rx has be approved but not to Info desk yet. States he will be in town at 11:30 and would like to P/U at that time. Pt will stop at info desk. Modified by and Electronically Signed by: LILIANA PARSONS On: 03/03/2013 11:05 AM Addendum by OSCAR BECERRA MD on 03 March 2013 09:41:15 CDT From: OSCAR BECERRA MD To: DAIN Becerra Nurse; Sent: 03/03/2013 09:41:15 CDT Subject: RE: Phone Message - Adderall Addendum by OSCAR BECERRA MD on 03 March 2013 09:19:04 CDT Submitted: Order:dextroamphetamine-amphetamine (Adderall 20 mg oral tablet) 1 tab(s) PO 2xDay AM & Noon Qty: 60 tab(s) Refills: 0 Substitutions Allowed Print - [id number] Signed by OSCAR BECERRA MD Addendum by YOLIE MONTEMAYOR on 03 March 2013 07:38:48 CDT From: YOLIE MONTEMAYOR (DAIN Becerra Nurse) To: OSCAR BECERRA MD; Sent: 03/03/2013 07:38:48 CDT Subject: FW: Phone Message - Adderall From: MARGO MURPHY To: DAIN Becerra Nurse; Sent: 03/02/2013 12:25:08 CDT Subject: Phone Message - Adderall Caller is: ( [phone] ) Patient ( ) Mother ( ) Father ( ) Spouse ( ) Daughter ( ) Son ( Mindy Orr) Pharmacy ( ) Other: Physician: Guillermo Cardenas Patient MRN #: Reason for Call: Message: S - Pt requesting increase/refill in Adderall B - Pt states he was just started on the lowest dose and was to call back if it is not working. A - Pt states med is working but just not as good as the doctor said it would. R - Please call pt when script is ready to be picked up or with any questions. Advice/Action: Source used: ( ) Verbalizes understanding [...] back cell phone number ( ) Source: [facility] POWERCHART Document Id: [id number] Miscellaneous - Kai Handley R.N. - 01/21/2013 9:09 AM CDT Med Management - adderall - dated 02/01 Document Contains Addenda Addendum by YOLIE MONTEMAYOR on 21 January 2013 10:41:53 CDT pt notified rx can be picked up at info desk per TVG/mr Addendum by OSACR BECERRA MD on 21 January 2013 10:32:12 CDT From: OSCAR BECERRA MD To: DAIN Becerra Nurse; Sent: 01/21/2013 10:32:12 CDT Subject: RE: Med Management - adderall - dated 02/01 Addendum by OSCAR BECERRA MD on 21 January 2013 10:32:01 CDT Approved Order:dextroamphetamine-amphetamine (Adderall 10 mg oral tablet) 1 tab(s) PO 2xDay AM & Noon Qty: 60 tab(s) Refills: 0 Substitutions Allowed Print - [id number] Signed by OSCAR BECERRA MD 01/21/2013 10:31:50 Addendum by YOLIE MONTEMAYOR on 21 January 2013 09:13:12 CDT From: YOLIE MONTEMAYOR (DAIN Becerra Nurse) To: OSCAR BECERRA MD; Sent: 01/21/2013 09:13:12 CDT Subject: FW: Med Management - adderall - d 02/01 From: KAI HANDLEY To: DAIN Becerra Nurse; Sent: 01/21/2013 09:09:25 CDT Subject: Med Management - adderall - dated 02/01 On hold pending signature Order:dextroamphetamine-amphetamine (Adderall 10 mg oral tablet) 1 tab(s) PO 2xDay AM & Noon Qty: 60 tab(s) Refills: 0 Substitutions Allowed Print - [id number] on [id number] (from [id number]) in session 50 Caller is: ) Patient ( ) Mother ( ) Father ( ) Spouse ( ) Daughter ( ) Son ( ) Pharmacy ( ) Other: Physician: Guillermo aCrdenas Patient MRN #: Reason for Call: Message: S. Requesting an Rx dated 02/01/13 B. they just had a in the family. [place] to go out of [place] for a couple of weeks. Is hoping to get it refilled before he leaves today. Last appointment 01/01/13. last rx dated 01/01/13 A. R. Advice/Action: Source used: ( ) Verbalizes understanding [...] back cell phone number ( ) Source: [facility] POWERCHART Document Id: [id number] Electronically signed by Chiqui [facility] Developmental Services Worker [id number] at 11/27/2016 12:39 AM CDT Miscellaneous - Oscar Becerra M.D. - 01/01/2013 10:29 AM CDT Ambulatory Depart Summary [address] [address] Visit Information Name: RONAN MAGALLANES [facility] Number: [id number] Visit Date: 01/01/2013 10:29:23 Attending Provider: OSCAR BECERRA MD Primary Care Provider: OSCAR BECERRA MD RONAN MAGALLANES has been given the following list of medications: Your Medications It is important to take your medications as directed. Use a pill box or chart to help remind you to take your medications. Please let your doctor or nurse know if you have problems taking your medications. Medication/Strength Dose Route Frequency Indications/Special Instructions/Comments/Notes dextroamphetamine-amphetamine (Adderall 10 mg oral tablet) 10 mg Oral two times a day AM & Noon traMADol (Ultram 50 mg oral tablet) 50 mg Oral every 6 hours Attention: If you have any medications at home that are not on this list, DO NOT take them until youcontact your provider for clarification. Additional Information: Source: [facility] POWERCHART Document Id: [id number] Miscellaneous - Oscar Becerra M.D. - 01/01/2013 10:29 AM CDT Ambulatory Patient Summary [address] [address] Visit Information Name: RONAN MAGALLANES [facility] Number: [id number] Current Date: 01/01/2013 10:29:24 Physicians Attending Provider: OSCAR BECERRA MD Primary Care Provider: OSCAR BECERRA MD Your Medications Here is a list of your medications. It is important to take your medications as directed. Use a pillbox or chart to help remind you to take your medications. Please let your doctor or nurse know if you have problems taking your medications. Medication/Strength Dose Route Frequency Indications/Special Instructions/Comments/Notes dextroamphetamine-amphetamine (Adderall 10 mg oral tablet) 10 mg Oral two times a day AM & Noon traMADol (Ultram 50 mg oral tablet) 50 mg Oral every 6 hours Attention: If you have any medications at home that are not on this list, DO NOT take them until youcontact your provider for clarification. Your Allergies & Intolerances Substance Reaction Symptoms Category Comments No Known Allergies Drug Your Problem List Problem Status Onset Comments ADD. Active 01/01/2013 Your Upcoming Appointments Date Time Location Reason Provider No Appointments found Your Goals/Additional instructions: Source: [facility] POWERCHART Document Id: [id number] Miscellaneous - Gamal Jaquez C.M.A. - 01/01/2013 10:13 AM CDT MRI Screening Questionnaire MRI Screening Questionnaire Entered On: 01/01/2013 10:16 CDT Performed On: 01/01/2013 10:13 CDT by GAMAL JAQUEZ MRI Questionnaire Previous MRI, CT, or X-rays Done : Yes Location of previous MRI, CTor X-ray : [facility] GAMAL JAQUEZ - 01/01/2013 10:13 CDT MRI Cannot be Done Grid Automated Internal Cardiac Defibrillator : No Brain aneurysm clips : No Cochlear implant : No History of pacemaker : No Implants with a magnet : No Internal electrodes/wires : No Neurostimulator/Biostimulator : No Jackson chayo catheter : No GAMAL JAQUEZ - 01/01/2013 10:13 CDT Patient Weight > 350 lbs : No GAMAL JAQUEZ - 01/01/2013 10:13 CDT MRI Risk Factors Grid Age 65 or Older : No Diabetes (document medication) : No History of Kidney/Liver Transplant : No History of Renal Disease : No Hypertension : No Receiving Dialysis : No GAMAL JAQUEZ - 01/01/2013 10:13 CDT MRI Implants, Devices, Conditions Grid Aneurysm clip : No Control Implants (IUD, diaphragm) : No Intravascular Coil, Filter or Stent : No Drug Infusion Pump : No External Pain Control Device : No Intravascular Catheter/Port : Yes (Comment: catheter in belly button- from surgery in 1999 [GAMAL JAQUEZ - 01/01/2013 10:13 CDT] ) Magnetic/Elec/Mech Activated Implant : No Prosthesis/Metal Implanted Surgical : No Metal Fragments in Body : No Bullets/BB's/Shrapnel in Body : No Tattoos/Perm Make-Up/Body Jewelry : Yes (Comment: tattoos [GAMAL JAQUEZ - 01/01/2013 10:13 CDT] ) Hearing Aids/Dentures/Partial Plates : Yes (Comment: partial plates [GAMAL JAQUEZ - 01/01/2013 10:13 CDT] ) History of cancer : No Eye Surgery/Implant : No Inner Ear Surgery/Implant : No Transdermal Med or EKG Patches : No Shunt : No Penile Implant : No Breast Tissue Superintendent System Operation/Implant : No : No (document number of weeks in Comment) : No Surgery : Yes (Comment: 1999 [GAMAL JAQUEZ - 01/01/2013 10:13 CDT] ) GAMAL JAQUEZ - 01/01/2013 10:13 CDT Claustrophobic : No Pain/Unable to Lay Still : No Metal In or Removed from Eyes Ever : No Form Completed : Yes GAMAL JAQUEZ - 01/01/2013 10:13 CDT Source: [employer] Document Id: [id number]!48 Miscellaneous - Gamal Jaquez, C.M.AKrista - 01/01/2013 9:51 AM CDT Adult Principal Administrative Clerk Intake/History Adult Principal Administrative Clerk Intake/History Entered On: 01/01/2013 9:53 CDT Performed On: 01/01/2013 9:51 CDT by GAMAL JAQUEZ Intake Chief Complaint : left knee injury -friday12/27/12, adhd, sleeping aid Systolic Blood Pressure : 132 mmHg Diastolic Blood Pressure : 70 mmHg NIBP Mean : 91 mmHg Actual Weight : 76.9 kg(Converted to: 169 lb 9 oz) Dosing Weight Clinic : 76.9 kg GAMAL JAQUEZ 01/01/2013 9:51 CDT General Info Information Given By : Patient Preferred Communication Mode : Verbal Languages : Greek GAMAL JAQUEZ 01/01/2013 9:51 CDT Subjective Pain Symptoms : Yes GAMAL JAQUEZ 01/01/2013 9:51 CDT Pain Pain Assessment Grid Pain 1 Location : Knee Laterality : Left GAMAL JAQUEZ 01/01/2013 9:51 CDT Dependent Habits Tobacco Use/Currently Using : No Smoking Status : Never smoker GAMAL JAQUEZ 01/01/2013 9:51 CDT Caffeine Use Grid Caffeine Use : Current Type : Coffee, Soft drinks Frequency : Daily GAMAL JAQUEZ 01/01/2013 9:51 CDT Source: [facility] [employer] Document Id: [id number] CDT!27 documented in this encounter Plan of Treatment Not on filedocumented as of this encounter Visit Diagnoses Not on filedocumented in this encounter Additional Health Concerns Assessment Noted Time PHQ-9 Depression Total Score: 1 02/26/2012 12:00 PM CD T documented as of this encounter
--- OUTSIDE RECORDS SUMMARY | 2022-05-17 14:26 | XMS_ITS | Clinical Summary ---
:1985 Author Organization [facility] Address [place] [address] Care Team Providers Name Role Phone Tushar Nunez MD Primary Care Provider Allergies Active Allergy Reactions Severity Noted Date Comments Lorazepam Anxiety 12/01/2013 Patient reports it made him suicidal Pollen Extracts Other - Describe In 12/24/2020 Stuf fy nose, headache Comment Field Medications Medication Sig Dispensed Refills Start Date End Date Status acetaminophen Take 1,000 mg by 0 Active (TYLENOL EXTRA mouth every 6 STRGTH) 500 mg hours if needed. tablet Max acetaminophen dose: 4000mg in 24 hrs. hydrOXYzine HCL Take 1 Tablet (50 30 Tablet 1 01/24/2022 Active (ATARAX) 50 mg mg) by mouth every tabletIndications: 6 hours if needed Anxiety (anxiety). sertraline Take 1 Tablet (50 90 Tablet 0 01/24/2022 Active (ZOLOFT) 50 mg mg) by mouth every tabletIndications: morning. Depression, major, single episode, severe (HC) QUEtiapine TAKE 1 TABLET(50 90 Tablet 0 04/26/2022 A ctive (SEROQUEL) 50 mg MG) BY MOUTH AT tabletIndications: BEDTIME Depression, major, single episode, severe (HC) QUEtiapine Take 1 Tablet (50 90 Tablet 0 01/24/2022 04/26/20 Discontinued (SEROQUEL) 50 mg mg) by mouth at 22 tabletIndications: bedtime. Depression, major, single episode, severe (HC) Active Problems Problem Noted Date Bipolar 1 disorder, mixed, moderate 01/29/2019 Attention deficit hyperactivity disorder (ADHD), predo minantly inattentive 01/01/2013 type Major depressive disorder, recurrent episode, moderate 04/30/2012 Overview: Overview: Overview: Inpatient psychiatry at [facility] 2011 for cutting. Resolved Problems Problem Noted Date Resolved Date Mixed anxiety depressive disorder 03/05/20172021 Overview: Overview: Depression Anxiety Moderate recurrent major depression 04/30/2012 02/06/2021 Overview: Inpatient psychiatry at [facility] 2011 for cutting. Encounters Date Type Specialty Care Team Description 04/26/2022 Refill Tushar Nunez MD Refi ll Request (Quetiapine) from Last 3 Months Immunizations Name Administration Dates Next Due DTP 02/06/1993, 11/19/1989, 02/10/1989, 10/1987, 1985 Hepatitis B, Unspecified 03/15/2002, 08/17/2001, 01/16/2001, 11/17/2000 Influenza, IIV4 05/30/2021, 07/22/2019 Influenza, Whole Virus 04/19/2014 MMR 11/17/2000, 02/10/1989 Polio Virus, Unspecified 02/06/1993, 11/19/1989, 04/03/1988, 1987 Tdap 08/01/2015, 11/07/2006 Tuberculin (PPD) 06/09/2017 Family History Medical History Relation Name Comments Bipolar disorder Brother Bipolar disorder Father Depression Mother Relation Name Status Comments Brother Alive Father Alive Mother Alive Social History Tobacco Use Types Packs/Day Years Used Date Former Smoker Cigarettes 0.5 4 Smokeless Tobacco: Former User Tobacco Cessation: Counseling Given: No Alcohol Use Standard Drinks/Week Comments Not Currently 0 (1 standard drink = 0.6 oz pure alcoho l) Alcohol Habits Answer Date Recorded How often do you have a drink containing 4 or more times a w [place] 07/22/2019 alcohol? How many drinks containing alcohol do you have Not asked on a typical day when you are drinking? How often do you have six or more drinks on one Not asked occasion? Comment: Not asked Sex Assigned at Date Recorded Not on file Obstetrics History Last Filed Vital Signs Vital Sign Reading Time Taken Comments Blood Pressure 116/78 08/27/2019 1:[address] [facility] Pulse 80 08/27/2019 1:[address] [facility] Temperature 36.7 ??C (98 ??F) 08/27/2019 1:[address] [facility] Respiratory Rate 12 07/02/2019 3:[address] [facility] Oxygen Saturation 97% 07/02/2019 5:[address] [facility] Inhaled Oxygen Concentration - - Weight 80.5 kg (177 lb 8 oz) 08/27/2019 1:[address] [facility] Height 182.9 cm (6') 08/27/2019 1:[address] [facility] Body Mass Index 24.07 08/27/2019 1:[address] [facility] Plan of Treatment Health Maintenance Due Date Last Done Comments COVID-19 vaccine series (#1) 04/02/1988 Hepatitis C screening for age 0410/01/2005 18-79 BMI (ht and wt on same day) for 08/27/2020 08/27/2019, 07/01, age 18+ 02/02/2019, Additional history exists Influenza for age 9-49 02/28/2022 05/30/2021, 07/22/2019, 04/19/2014 Depression screening for age 12+ 06/25/2022 06/25/2021, , 06/19/2021, Additional history exists Tetanus booster 08/01/2025 08/01/2015, 11/07/2006 Tdap Completed 08/01/2015, 11/07/2006 Results Not on filefrom Last 3 Months Insurance Payer Benefit Plan / Subscriber ID Effective Dates Phone Addre ss Type Group MEDICA MEDICA CHOICE [id number] 2015-Present [address] [address] [place] [address] [facility] [id number] 2019-Present [address] [place] [address] [facility] [id number] 2021-Present [address] [place] [address] Ronan Rolon Personal/Famil Self 1985 [address] (Home[address] [place] [address] Ronan Rolon Personal/Famil Self 1985 [address] (Home) [address] [place] [address] [employer] Employer 06/30/2000 [address] [facility] (Home) [place] [phone] [id number] (Work) [employer]OM[employer] SHIPLEY Other Other 06/30/2000 C/O Bettye Soliz [employer] (Home) [address] [place] (Work) [address] [facility] [employer] Employer 06/30/2000 [address] [address] [facility] (Home) [place], [place] [phone] [id number] (Work) Advance Directives Latest Code Status on File Code Status Date Activated Date Inactivated Comments Full Code 01/28/2019 5:29 PM 01/29/2019 5:52 PM Care Teams Wet End Supervisor Relationship Specialty Start Date End Date Tushar Nunez MD PCP - General Family Practice 06/19/21 [address] [place] [address]
[2022-05-17] MEDS: 0.9 % SODIUM CHLORIDE 1000 ml 1,000 ML IV (14:27)
[2022-05-17 14:38] LABS: Basophils Absolute Auto 0.06 K/uL (0.00-0.30); Basophils Percent Auto 0.8 % (0.0-3.0); Eosinophils Absolute Auto 0.21 K/uL (0.00-0.50); Eosinophils Percent Auto 2.8 % (0.0-7.0); Hematocrit 40.8 % (37.0-53.0); Hemoglobin* 13.9 gm/dL (13.5-17.5); Lymphocytes Absolute Auto 1.85 K/uL (0.90-2.90); Lymphocytes Percent Auto 24.9 % (20-44); Mean Corpuscular HGB Conc 34 gm/dL (32-36); Mean Corpuscular Hemoglobin 31 pg (26-34); Mean Corpuscular Volume 91 fL (80-100); Monocytes Percent Auto 5.9 % (0.0-11.0); Neutrophils Absolute Auto 4.87 K/uL (1.7-7.0); Neutrophils Percent Auto 65.6 % (42.0-72.0); Platelet Count* 141 K/uL (140-440); RDW Coefficient of Variation % 11.8 % (11.5-15.5); Red Blood Count 4.48 m/uL (4.30-5.90); White Blood Count* 7.43 K/uL (4.50-11.00)
[2022-05-17 14:52] LABS: Chloride* 109 mmol/L (96-114); Sodium* 141 mmol/L (135-149)
[2022-05-17 14:53] LABS: Potassium* 3.9 mmol/L (3.6-5.1)
[2022-05-17 14:55] LABS: Est. Creatinine Clearance* 114.24; Estimated Glomerular Filt Rate 101 ml/min
[2022-05-17 14:56] LABS: Blood Urea Nitrogen* 12 mg/dL (5-24); Calcium* 9.1 mg/dL (8.4-10.6); Carbon Dioxide* 27 mmol/L (20-32); Glucose* 80 mg/dL (60-115)
[2022-05-17 14:59] LABS: C Reactive Protein* 0.7 mg/dL (0.5-1.0)
[2022-05-17] MEDS: KETOROLAC 30 MG/ML inj IVP (15:00)
--- NOTE | 2022-05-17 15:00 | ED.ABDPAIN ---
HPI - Abdominal Pain General Chief Complaint: Abdominal Pain Stated Complaint: Abdominal pain Time Seen by Provider: 05/17/22 13:47 History of Present Illness HPI narrative: 36-year-old man presenting to the emergency department with complaint of mid abdominal pain. He notes a history of some sort of an intra-abdominal cyst associated with what sounds like the umbilical ligament. Apparently had surgery at [facility] about 3 years ago due to pain that he was having here. That pain seems to have come back increasing over the last couple of weeks. It is worse when he is up and walking around. He describes it as a light switch going on and off causing a rather intense pain. He also at rest has a feeling of a severe and gnawing hunger type pain, ache. He has not had any fever. Has not been vomiting. No constipation or diarrhea. No drainage from any site. Related Data Home Medications Medication Instructions Recorded Confirmed hydroxyzine HCl 50 mg tablet mg 05/17/22 quetiapine 50 mg tablet mg 05/17/22 sertraline 50 mg tablet mg 05/17/22 Allergies Allergy/AdvReac Type Severity Reaction Status Date / Time No Known Drug Allergies Allergy Verified 05/17/22 14:46 Review of Systems Status of ROS Reports: 6 or more systems reviewed and unremarkable except as noted in History and below PFSH [facility] Social History Smoking Status: Current every day smoker Do you use any of these nicotine containing products: Vaping Products Second hand tobacco smoke exposure: No How often do you have a drink containing alcohol: never AUDIT-C Alcohol total score: 0 Non-prescribed substance use: marijuana (any form) Non-prescribed substance use details: Marijuana for depression Exam Narrative: Exam Narrative: Pleasant. NAD. I do note him though to be ambulating a little hunched over as if uncomfortable. Slim. Skin is warm and dry with numerous tattoos. Oropharynx is moist with dental decay. S breathing easily. Lungs appear to be clear. Cardiovascular with regular rate and rhythm no murmur rub or gallop identified. Abdomen is flat soft and mildly tender to palpation in the periumbilical area and above in trochar scar site. There are scars consistent with laparoscopic abdominal procedure. Well-healed. No masses appreciated. No pain to palpation over the pubic symphysis or is instability or pain noted to anterior compression of the iliac crests. Extremities are well perfused without edema. Const: Vital Signs, click to edit/add: Vital Signs - 24 hr 05/17/22 13:40 05/17/22 15:04 05/17/22 15:05 Temperature 98.8 F Pulse Rate 51 L 55 L Pulse Rate [Right Pulse Oximeter] 84 Respiratory Rate 18 Blood Pressure 110/79 Blood Pressure [Ri ght Upper Arm] 124/88 Pulse Oximetry 99 97 99 Oxygen Delivery Me thod Room Air 05/17/22 15:06 05/17/22 15:15 05/17/22 15:30 Temperature Pulse Rate 56 L 53 L 47 L Pulse Rate [Right Pulse Oximeter] Respiratory Rate Blood Pressure Blood Pressure [Ri ght Upper Arm] Pulse Oximetry 99 98 99 Oxygen Delivery Me thod 05/17/22 15:32 05/17/22 15:45 05/17/22 16:00 Temperature Pulse Rate 49 L 61 52 L Pulse Rate [Right Pulse Oximeter] Respiratory Rate Blood Pressure 119/80 Blood Pressure [Ri ght Upper Arm] Pulse Oximetry 99 99 99 Oxygen Delivery Me thod 05/17/22 16:02 05/17/22 16:15 05/17/22 16:30 Temperature Pulse Rate 57 L 52 L 57 L Pulse Rate [Right Pulse Oximeter] Respiratory Rate Blood Pressure 119/81 Blood Pressure [Ri ght Upper Arm] Pulse Oximetry 99 99 99 Oxygen Delivery Me thod 05/17/22 16:32 05/17/22 16:45 Temperature Pulse Rate 52 L 53 L Pulse Rate [Right Pulse Oximeter] Respiratory Rate Blood Pressure 118/80 Blood Pressure [Ri ght Upper Arm] Pulse Oximetry 99 99 Oxygen Delivery Me thod Documenting provider has reviewed patient's vital signs: yes Course Vital Signs Vital signs: Initial Vital Signs Temperature 98.8 F 05/17/22 13:40 Temperature Source Temporal Artery Scan 05/17/22 13:40 Pulse Rate 84 05/17/22 13:40 Pulse Rhythm 05/17/22 13:40 Respiratory Rate 18 05/17/22 13:40 Blood Pressure 124/88 05/17/22 13:40 Blood Pressure Mean 100 05/17/22 13:40 Blood Pressure Position Sitting 05/17/22 13:40 Pulse Oximetry 99 05/17/22 13:40 Oxygen Delivery Method 05/17/22 13:40 Vital Signs Temperature 98.8 F 05/17/22 13:40 Pulse Rate 84 05/17/22 13:40 Respiratory Rate 18 05/17/22 13:40 Blood Pressure 124/88 05/17/22 13:40 Pulse Oximetry 99 05/17/22 13:40 Oxygen Delivery Method 05/17/22 13:40 Temperature 98.8 F 05/17/22 13:40 Pulse Rate 53 L 05/17/22 16:45 Respiratory Rate 18 05/17/22 13:40 Blood Pressure 118/80 05/17/22 16:32 Pulse Oximetry 99 05/17/22 16:45 Oxygen Delivery Method 05/17/22 13:40 MDM - Abdominal Pain MDM Narrative Medical decision making narrative: Will place IV. Check labs and IV contrasted CT abdomen and pelvis. Has requested now something for pain and has been prescribed ketorolac. Still wincing periodically on re-evaluation but no significant distress. I did review CT scan images. Did discuss findings of CT scan and seemed a little relieved. Normal labs. Perhaps this is pain related to scar tissue. Think this kind of pain to be rather difficult to medicate given somewhat intermittent in nature and in ambivalent nature of pain. Did offer placement of Lidoderm patch which he accepts. Radiology over read of CT scan--- IMPRESSION: 1. No dilated bowel or localized inflammation. 2. 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 3. Nonobstructive nephrolithiasis with left renal scarring redemonstrated. Lab Data Attestation: I reviewed the patient's lab results. Labs: Lab Results 05/17/22 05/17/22 Range/Units 14:30 14:30 WBC 7.43 (4.50-11.00) K/uL RBC 4.48 (4.30-5.90) m/uL Hgb 13.9 (13.5-17.5) gm/dL Hct 40.8 (37.0-53.0) % MCV 91 (80-100) fL MCH 31 (26-34) pg MCHC 34 (32-36) gm/dL RDW Coeff of Jake 11.8 (11.5-15.5) % Plt Count 141 (140-440) K/uL Neut % (Auto) 65.6 (42.0-72.0) % Lymph % (Auto) 24.9 (20-44) % [place] % (Auto) 5.9 (0.0-11.0) % Eos % (Auto) 2.8 (0.0-7.0) % Baso % (Auto) 0.8 (0.0-3.0) % Neut # (Auto) 4.87 (1.7-7.0) K/uL Lymph # (Auto) 1.85 (0.90-2.90) K/uL [place] # (Auto) 0.40 (0.00-0.90) K/UL Eos # (Auto) 0.21 (0.00-0.50) K/uL Baso # (Auto) 0.06 (0.00-0.30) K/uL Abs Immat Gran (auto) 0.00 (0.00-0.30) K/uL Imm/Tot Granulo (auto) 0.0 % Sodium 141 (135-149) mmol/L Potassium 3.9 (3.6-5.1) mmol/L Chloride 109 (96-114) mmol/L Carbon Dioxide 27 (20-32) mmol/L BUN 12 (5-24) mg/dL Creatinine 1.0 (0.5-1.5) mg/dL Estimated Creat Clear 114.24 Estimated GFR 101 ml/min Glucose 80 (60-115) mg/dL Calcium 9.1 (8.4-10.6) mg/dL C-Reactive Protein 0.7 (0.5-1.0) mg/dL Discharge Plan Discharge Clinical Impression: Abdominal pain, Left nephrolithiasis Patient Disposition: Home, Self-Care Condition: Stable Additional Instructions: Always good to hydrate. You might try Lidoderm or lidocaine patches in the area that hurts. Might also try something like naproxen up to 500 mg 2 times daily; probably take with a little bit of food. Consider follow-up with your surgeon to discuss this pain. Perhaps alternative medicine would be another option; perhaps acupuncture or maybe even a voyage management system operator or physical therapy. might want to make an appointment with her primary care provider to establish next step in evaluation and/or pain management. Prescriptions: No Action hydroxyzine HCl 50 mg tablet sertraline 50 mg tablet quetiapine 50 mg tablet Follow Up/Referrals: Provider,Not a Local [Primary Care Provider] - Stand Alone Forms: [employer] Info Instructions
[2022-05-17] MEDS: LIDOCAINE 5% PATCH 1 PATCH TRANSDERMA (17:10)
[2022-05-18 22:26] LABS: Slide Review Reflex No
== END 2022-05-17 17:15 | disposition home or self-care (01) ==
PROVIDERS: Emergency Provider Family Medicine
DX: N20.0 Calculus of kidney (principal)
CPT/HCPCS: 36415; 74177; 80048; 85025; 86140; 96374; 99284; A9270; J1885; J7030; Q9967

== ENCOUNTER 2024-01-09 12:00 | Emergency (ER) | payer MEDICAID, SELFPAY ==
[2024-01-09 12:12] VITALS: BP 105/70; PULSE 86; RESP 18; TEMP 36.6; O2SAT 97; BMI 25.4
--- NOTE | 2024-01-09 14:40 | ED_ITS ---
HPI - Extremity Injury (Lower) General Time Seen by Provider: 14:40 Date Seen: 01/09/24 Chief Complaint: Extremity Pain/Injury, Lower Stated Complaint: heel pain/injury Time Seen by Provider: 01/09/24 14:40 Source: patient and RN notes reviewed Mode of arrival: ambulatory Limitations: no limitations History of Present Illness HPI Narrative: This 38-year-old male is brought back in a wheelchair, presented to the ER of his own accord with right heel/foot pain. He is reporting that he awoke with the sense of right heel pain, hurts more medially. He awoke feeling pain when walking on it yesterday. He did skateboard here to the hospital to get TB testing in preparation for starting work at [employer]. After that the heel hurt more. He rested. By last night he was having difficulty walking. States he can not even bear weight on it. He can do toe-touch weight-bearing brief put sits any weight on the heel it is excruciating. He has had no fevers or chills. He has never had joint pain like this before. A few months ago his right knee was bothering him a bit but he just rested for couple days and it went away. He is not aware of any inflammatory joint issues in the family. He has never done any IV drug use. He had epispadias and has had multiple repair surgeries for this. He states he is embarrassed but he could not even get to the bathroom due to the pain last night. Given this urologic abnormality, he notes he has to get to the bathroom, has urinary urgency or may have dribbling or incontinence if he does not get to the bathroom quickly. Related Data Home Medications ?Medication ?Instructions ?Recorded ?Confirmed quetiapine 50 mg tablet mg 05/17/22 sertraline 50 mg tablet mg 05/17/22 clonazepam 0.5 mg tablet 0.5 mg PO DAILY PRN anxiety 01/09/24 01/09/24 dextroamphetamine-amphetamine 20 1 tab PO DAILY 01/09/24 01/09/24 mg tablet Previous Rx's ?Medication ?Instructions ?Recorded ketorolac 10 mg tablet 10 mg PO Q6H PRN pain #20 tabs 01/09/24 Allergies Allergy/AdvReac Type Severity Reaction Status Date / Time No Known Drug Allergies Allergy Verified 05/17/22 14:46 Review of Systems Status of ROS: Reports: 6 or more systems reviewed and unremarkable except as noted in History and below [facility] Social History Smoking Status: Current every day smoker Do you use any of these nicotine containing products: Vaping Products Second hand tobacco smoke exposure: No How often do you have a drink containing alcohol: never AUDIT-C Alcohol total score: 0 Non-prescribed substance use: marijuana (any form) Non-prescribed substance use details: Marijuana for depression Exam Const: Vital Signs, click to edit/add: Vital Signs - 24 hr 01/09/24 12:12 01/09/24 16:50 Temperature 97.9 F Pulse Rate [Pulse Oximeter] 86 79 Respiratory Rate 18 18 Blood Pressure [Ri ght Upper Arm] 105/70 117/72 Pulse Oximetry 97 97 Oxygen Delivery Me thod Room Air Room Air Patient is alert, interactive, no apparent distress. Did assist him from the wheelchair to the chair in exam room 4. He does demonstrate that he can do toe- touch weight-bearing but absolutely does not want to put any pressure on the heel. On inspection there is no visible erythema, no swelling, no warmth. Neurovascular is intact in this foot. Achilles is nontender in test intact. The malleoli are nontender, there is no ankle joint effusion. He is tender when I palpate along the right medial foot area along the heel. Again, no swelling or visible abnormalities. He is not tender when I palpate along the plantar fascia. He can wiggle his toes without any abnormality. Neck supple, no adenopathy. Lungs are clear, good air entry, no wheezing or crackles. CV regular rate and rhythm, no murmur, normal S1-S2, no S3-S4. Documenting provider has reviewed patient's vital signs: yes Course Course ED Course: Patient will be given 30 mg IM Toradol to see if this helps with pain. Will get some baseline labs again inflammatory markers. Will start with an x-ray of his right foot. This could be inflammatory condition, doubt fracture given there is a lack of trauma but stress fractures always a possibility although he has not had a lot of activity besides just yesterday. Reevaluation(s) Time of Reevaluation #1: 17:04 Reevaluation #1: Reviewed with patient that his x-ray showing no acute findings. His labs are normal with normal white blood count, normal chemistries. C-reactive protein and procalcitonin are all normal. Sed rate is pending but I am not going to make him stay longer wait for this. I can update him on this if there is any concern with that later. He did just recently start skateboarding again, his right foot is his push off foot, he wonders if it possibly just is some overuse or ligamentous injury. This certainly could be possible. We are going to provide him crutches for pain-free weight-bearing or toe-touch weight-bearing as tolerated. The Toradol did help, will give him an oral course of this. Will give him the orthopedic number to contact next week to get scheduled for a follow-up appointment if ongoing issues. Vital Signs Vital signs: Initial Vital Signs Temperature 97.9 F 01/09/24 12:12 Temperature Source Temporal Artery Scan 01/09/24 12:12 Pulse Rate 86 01/09/24 12:12 Respiratory Rate 18 01/09/24 12:12 Blood Pressure 105/70 01/09/24 12:12 Blood Pressure Mean 81 01/09/24 12:12 Blood Pressure Position Sitting 01/09/24 12:12 Pulse Oximetry 97 01/09/24 12:12 Oxygen Delivery Method Room Air 01/09/24 12:12 Vital Signs Temperature 97.9 F 01/09/24 12:12 Pulse Rate 86 01/09/24 12:12 Respiratory Rate 18 01/09/24 12:12 Blood Pressure 105/70 01/09/24 12:12 Pulse Oximetry 97 01/09/24 12:12 Oxygen Delivery Method Room Air 01/09/24 12:12 Temperature 97.9 F 01/09/24 12:12 Pulse Rate 79 01/09/24 16:50 Respiratory Rate 18 01/09/24 16:50 Blood Pressure 117/72 01/09/24 16:50 Pulse Oximetry 97 01/09/24 16:50 Oxygen Delivery Method Room Air 01/09/24 16:50 Medications Administered Medications: Discontinued Medications Generic Name Dose Route Start Last Admin Trade Name Freq PRN Reason Stop Dose Admin Ketorolac Tromethamine 30 mg 01/09/24 14:49 01/09/24 14:53 Ketorolac 30 Mg/Ml Inj IM 01/09/24 14:50 30 mg ONCE ONE Administration MDM - Extremity Injury (Lower) Lab Data Attestation: I reviewed the patient's lab results. Labs: Lab Results 01/09/24 Range/Units 15:00 WBC 6.26 (4.50-11.00) K/uL RBC 4.55 (4.30-5.90) m/uL Hgb 13.7 (13.5-17.5) gm/dL Hct 41.3 (37.0-53.0) % MCV 91 (80-100) fL MCH 30 (26-34) pg MCHC 33 (32-36) gm/dL RDW Coeff of Jake 12.6 (11.5-15.5) % Plt Count 168 (140-440) K/uL Neut % (Auto) 52.6 (42.0-72.0) % Lymph % (Auto) 29.6 (20-44) % [place] % (Auto) 8.8 (0.0-11.0) % Eos % (Auto) 7.2 H (0.0-7.0) % Baso % (Auto) 1.3 (0.0-3.0) % Neut # (Auto) 3.30 (1.7-7.0) K/uL Lymph # (Auto) 1.85 (0.90-2.90) K/uL [place] # (Auto) 0.60 (0.00-0.90) K/UL Eos # (Auto) 0.50 (0.00-0.50) K/uL Baso # (Auto) 0.08 (0.00-0.30) K/uL Abs Immat Gran (auto) 0.03 (0.00-0.30) K/uL Imm/Tot Granulo (auto) 0.5 % ESR 7 (2-15) mm/hr Sodium 139 (135-149) mmol/L Potassium 4.0 (3.6-5.1) mmol/L Chloride 107 (96-114) mmol/L Carbon Dioxide 27 (20-32) mmol/L Anion Gap 5 L (7-15) mEq/L BUN 9 (5-24) mg/dL Creatinine 0.8 (0.5-1.5) mg/dL Estimated Creat Clear 140.11 Estimated GFR 118 ml/min Glucose 81 (60-115) mg/dL Uric Acid 4.7 (2.2-8.4) mg/dL Calcium 9.1 (8.4-10.6) mg/dL C-Reactive Protein < 0.5 L (0.5-1.0) mg/dL Procalcitonin < 0.03 L (<0.50) ng/mL Imaging Data XR right foot: Attestation: I have reviewed the pertinent imaging results. My impression: I see no acute pathology on my preliminary review. Radiologist's impression: Patient: AMBER MAGALLANES Facility:?[facility] Patient ID:?[id number] Site Patient ID:?[id number]. Site :?[id number] Study:?XRay-Extremity Right FOOT 3 VIEW-01/09/2024 3:18:22 PM Ordering Physician:?Jay Bell Final Report: Indication: pain medial foot/heel area, no trauma. Technique: Right foot, 3 views. Comparison: None. Findings: Bones: Alignment is normal. No fractures or bone lesions. Joint spaces: Minimal degenerative changes.. Soft tissues: Unremarkable. Impression: No findings to explain pain. Dictated by Yunior Barrios MD @ 01/09/2024 3:55:43 PM (Electronic Signature) Discharge Plan Discharge Clinical Impression: Acute pain of right foot Patient Disposition: Home, Self-Care Condition: Stable Instructions: Foot Sprain (ED) Additional Instructions: Use crutches for pain-free weight-bearing. Continue to ice and elevate. Tylenol 1000 mg 3 times a day baseline for pain. Have also written for course of Toradol. Once the Toradol as done, can switch over to ibuprofen. Contact the orthopedic clinic on Friday to get scheduled for a follow-up appointment, phone number is [phone]. Activity Level: Activity as Tolerated Prescriptions: New ketorolac 10 mg tablet 10 mg PO Q6H PRN (Reason: pain) Qty: 20 0RF Rx Instructions: maximum total duration of 5 days from all oral, intranasal, or parenteral formulations No Action clonazepam 0.5 mg tablet 0.5 mg PO DAILY PRN (Reason: anxiety) dextroamphetamine-amphetamine 20 mg tablet 1 tab PO DAILY sertraline 50 mg tablet quetiapine 50 mg tablet Follow Up/Referrals: Provider,Not a Local [Primary Care Provider] - Stand Alone Forms: [employer] Info Instructions
--- NOTE | 2024-01-09 14:48 | CRLHL7_ITS ---
For Patients: As a result of the Century Cures Act, medical imaging exams and procedure reports are released immediately into your electronic medical record. You may view this report before your referring provider. If you have questions, please contact your health care provider. Indication: pain medial foot/heel area, no trauma. Technique: Right foot, 3 views. Comparison: None. Findings: Bones: Alignment is normal. No fractures or bone lesions. Joint spaces: Minimal degenerative changes.. Soft tissues: Unremarkable. Impression: No findings to explain pain. Dictated by Yunior Barrios MD @ 01/09/2024 3:55:43 PM (Electronically Signed)
[2024-01-09] MEDS: KETOROLAC 30 MG/ML inj IM (14:53)
--- OUTSIDE RECORDS SUMMARY | 2024-01-09 14:58 | XMS_ITS | Clinical Summary ---
Author Organization [employer] [facility] Address [place], [place] [address] Care Team Providers Care Transportation Assistant Name Role Phone Tushar Nunez MD Primary Care Provider [phone] Allergies Active Allergy Reactions Criticality Noted Date Comments Lorazepam Anxiety 12/01/2013 Patient reports it made him suicidal Pollen Extracts Other - Describe In Comment Field 12/24/2020 Stuffy nose, headache Medications Medication Sig Dispensed Refills Start Date End Date Status QUEtiapine (SEROQUEL) 50 mg tabletIndications:Depre ssion, major, single episode, severe (HC) Take 1 Tablet (50 mg) by mouth at bedtime. 90 Tablet 1 08/27/2022 Active sertraline (ZOLOFT) 100 mg tabletIndications:Major depressive disorder, recurrent episode, moderate (HC) Take 1 Tablet (100 mg) by mouth every morning. 90 Tablet 1 08/27/2022 Active diazePAM (VALIUM) 5 mg tabletIndications:Anxie ty Take 1 Tablet (5 mg) by mouth 3 times daily if needed for Anxiety. 30 Tablet 1 10/01/2022 Active hydrOXYzine HCL (ATARAX) 50 mg tabletIndications:Anxie ty,Bipolar 1 disorder, mixed, moderate (HC),Attention deficit hyperactivity disorder (ADHD), predominantly inattentive type Take 1 Tablet (50 mg) by mouth every 6 hours if needed (anxiety). 30 Tablet 1 10/01/2022 Active ondansetron (ZOFRAN ODT) 8 mg disintegrating tabletIndications:Influ camden-like symptoms Place 1 Tablet (8 mg) on the tongue every 8 hours if needed for Nausea/Vomiting . 30 Tablet 12/25/2022 Active Active Problems Problem Noted Date Diagnosed Date Anxiety 07/26/2022 Bipolar 1 disorder, mixed, moderate 01/29/2019 Attention deficit hyperactiv ity disorder (ADHD), predominantly inattentive type 01/01/2013 Major depressive disorder, recurrent episode, mo derate 04/30/2012 Overview: Overview: Overview: Inpatient psychiatry at [facility] January 2012 for cutting. Resolved Problems Problem Noted Date Diagnosed Date Resolved Date Mixed anxiety depressive disorder 03/05/2017 07/31/2021 Overview: Overview: Depression Anxiety Moderate recurrent major depression 04/30/2012 07/31/2021 Overview: Inpatient psychiatry at [facility] January 2012 for cutting. Immunizations Name Administration Dates Next Due DTP 02/06/1993, 0,02/10/1989,04/03/1988, 988 Hepatitis B, Unspecified 03/15/2002,08/17/2001,0 01/16/2001,11/17/2000 Influenza, IIV4 07/26/2022,05/30/2021,07/22/2019 Influenza, Whole Virus 04/19/2014 MMR 11/17/2000,02/10/1989 Polio Virus, Unspecified 02/06/1993,11/19/1989,1 ,1987 Tdap 08/01/2015,11/07/2006 Tuberculin (PPD) 06/09/2017 Family History Medical History Relation Name Comments Bipolar disorder Brother Bipolar disorder Father Cancer-colon Maternal Grandmother Depression Mother Relation Name Status Comments Brother Alive Father Alive Maternal Grandfather Maternal Grandmother Mother Alive Paternal Grandfather Alive Paternal Grandmother Alive Social History Tobacco Use Types Packs/Day Years Used Date Smoking Tobacco: Former Cigarettes 0.5 4 Smokeless Tobacco: Current Tobacco Cessation:Ready to Q uit: Not Asked; Counseling Given: Not Answered Alcohol Use Standard Drinks/Week Comments Not Currently 0 (1 standard drink = 0.6 oz pur e alcohol) PHQ-2 Answer Date Recorded PHQ-2 TOTAL SCORE 6 08/27/2022 Social Connections Answer Date Recorded Frequency of Communication with Friends and Fami ly Not on file 12/29/2023 Financial Resource Strain Answer Date R ecorded Difficulty of Paying Living Expenses 3 12/25/2022 Difficulty of Paying Living Expenses Not on file 12/25/2022 Food Insecurity Answer Date Recorded Worried About Running Out of Food in the Last Ye ar 1 12/25/2022 Transportation Needs Answer Date Record ed Lack of Transportation (Medical) 2 12/25/2022 Housing Stability Answer Date Recorded Unable to Pay for Housing in the Last Year 1 12/25/2022 Sex and Gender Information Value Date Recorded Sex Assigned at Not on file Gender Identity Not on file Sexual Orientation Not on file Obstetrics History Last Filed Vital Signs Vital Sign Reading Time Taken Comments Blood Pressure 135/95 12/25/2022 2:28 PM CDT Pulse 62 12/25/2022 2:28 PM CDT Temperature 36.2 ??C (97.1 ??F) 12/25/2022 2:28 PM CD T Respiratory Rate 12 07/02/2019 3:24 PM GERMAN PROFESSOR Oxygen Saturation 100% 12/25/2022 2:28 PM CDT Inhaled Oxygen Concentration - - Weight 71.7 kg (158 lb) 07/26/2022 12:40 PM GERMAN PROFESSOR with shoes Height 180.3 cm (5' 11) 07/26/2022 12:40 PM GERMAN PROFESSOR Body Mass Index 22.04 07/26/2022 12:40 PM GERMAN PROFESSOR Plan of Treatment Health Maintenance Due Date Last Done Comments HIV for age 15-65 10/01/2002 Hepatitis C screening for age 18-79 10/01/2005 Lipids for age 35-44 10/01/2022 COVID-19 vaccine series ( season) 2023 BMI (ht and wt on same day) for age 18+ 07/26/2023 07/26/2022, 08/27/2019, 07/22/2019, Additional history exists Depression screening for age 12+ 08/27/2023 08/27/2022, 07/26/2022, 06/25/2021, Additional history exists Influenza for age 9-49 02/29/2024 , 05/30/2021, 07/22/2019, Additional history exists Tetanus booster 08/01/2025 08/01/2015, 11/07/2006 Tdap Completed 08/01/2015, 11/07/2006 Pneumococcal series for age 6-64 Aged Out No longer eligible based on patient's age to complete this topic Advance Directives * Full Code (Latest Code Status on File) Date Activated Date Inactivated Comments 01/28/2019 5:29 PM 01/29/2019 5:52 PM Care Teams Transportation Assistant Relationship Specialty Start Date End Date Tushar Nunez MD [address] [place] [address] PCP - General Family Practice 06/19/21
--- OUTSIDE RECORDS SUMMARY | 2024-01-09 14:58 | XMS_ITS | Encounter Summary ---
Author Organization [place] Address [address] [place] [address] Care Team Providers Care Relief Master Name Role Phone System, Provider Not In Unavailable Unavaila Paras Thorne MD Unavailable +[phone] Ann Weathers RN Unavailable [phone] Luisa Portillo MD Primary Care Provider + [phone] Paras Juárez MD Unavailable +[phone] Jeanette Ratliff Unavailable [phone] Encounter Details Date Type Department Care Team (Late st Contact Info) Description 09/02/2019 MyC Medical Advice [facility]rology and Inst for Prostate and Urologic Cancers [address] [place] [address] [address] [place] [address] Ann Weathers, RN Social History Tobacco Use Types Packs/Day Years Used Date Smoking Tobacco: Light Smoker Smokeless Tobacco: Current Alcohol Use Standard Drinks/Week Comments Not Currently 0 (1 standard drink = 0.6 oz pur e alcohol) Sex and Gender Information Value Date Recorded Sex Assigned at Not on file Gender Identity Not on file Sexual Orientation Not on file documented as of this encounter Plan of Treatment Not on file documented as of this encounter Visit Diagnoses Not on filedocumented in this encounter Care Teams Relief Master Relationship Specialty [place] [address] [address] JAZMIN VILLALOBOS [address] PCP - General Family Practice 08/30/19 System, Provider Not In Referring Physician Clinic 08/19/19 Paras Juárez MD [address] [address] Urology 08/19/19 Ann Weathers, RN Registered Nurse Urology 08/19/19 01/14/23 Paras Juárez MD [address] [place] [address] Assigned Surgical Provider 04/21/20 09/12/20 Jeanette Ratliff PA 909 [facility] [place] [address] Assigned Surgical Provider 09/13/20 07/28/21 documented as of this encounter
--- OUTSIDE RECORDS SUMMARY | 2024-01-09 14:58 | XMS_ITS | Encounter Summary ---
Author Organization [place] Address [address] [place] [address] Care Team Providers Care Power Lineworker Name Role Phone System, Provider Not In Unavailable Unavaila [facility] Paras Juárez MD Unavailable +[phone] Ann Weathers RN Unavailable [phone] Luisa Portillo MD Primary Care Provider + [phone] Paras Juárez MD Unavailable [phone] Jeanette Ratliff Unavailable [phone] Encounter Details Date Type Department Care Team (Late st Contact Info) Description 12/13/2019 MyC Medical Advice [facility] [address] [place] [address] Krystal [place] Social History Tobacco Use Types Packs/Day Years Used Date Smoking Tobacco: Light Smoker Smokeless Tobacco: Current Alcohol Use Standard Drinks/Week Comments Not Currently 0 (1 standard drink = 0.6 oz pur e alcohol) Sex and Gender Information Value Date Recorded Sex Assigned at Not on file Gender Identity Not on file Sexual Orientation Not on file COVID-19 Exposure Response Date Recorded In the last month, have you been in contact with someone who was confirmed or suspected to have Coronavirus / COVID-19? No / Unsure 11/29/2019 1:13 PM CDT documented as of this encounter Plan of Treatment Not on file documented as of this encounter Visit Diagnoses Not on filedocumented in this encounter Care Teams Power Lineworker Relationship Specialty [place] [address] JAZMIN Servin [address] PCP - General Family Practice 08/30/19 System, Provider Not In Referring Physician Clinic 08/19/19 Paras Juárez MD [address] [place] [address] Urology 08/19/19 Ann Weathers, RN Registered Nurse Urology 08/19/19 01/14/23 Paras Juárez MD [address] [place] [address] Assigned Surgical Provider 04/21/20 09/12/20 Jeanette Ratliff PA 909 [facility] Urology [place], [place] [address] Assigned Surgical Provider 09/13/20 07/28/21 documented as of this encounter
--- OUTSIDE RECORDS SUMMARY | 2024-01-09 14:58 | XMS_ITS | Clinical Summary ---
Author Organization [place] Address [address] [place] [address] Care Team Providers Care Mica Paster Name Role Phone System, Provider Not In Unavailable Unavaila Paras Thorne MD Unavailable [phone] Luisa Portillo MD Primary Care Provider + [phone] Allergies No known active allergies Medications Medication Sig Dispensed Refills Start Date End Date Status hydrOXYzine (ATARAX) 50 MG tablet Take 50 mg by mouth 3 times daily as needed 07/22/2019 Active traZODone (DESYREL) 50 MG tablet Take 50 mg by mouth nightly as needed 02/02/2019 Active citalopram (CELEXA) 20 MG tablet Take 20 mg by mouth daily 07/22/2019 Active Amphetamine-Dextro amphetamine (ADDERALL PO) Active ibuprofen (ADVIL/MOTRIN) 600 MG tabletIndications: Infected urachal cyst Take 1 tablet (600 mg) by mouth every 6 hours as needed for moderate pain 40 tablet 09/01/2019 Active Additional Information Patient not taking.Reported on 11/29/2019 acetaminophen (TYLENOL) 325 MG tabletIndications: Urachal cyst Take 2 tablets (650 mg) by mouth every 4 hours as needed for mild pain 150 tablet 09/01/2019 Active Additional Information Patient not taking.Reported on 01/25/2020 bacitracin 500 UNIT/GM external ointmentIndication s:Urachal cyst Apply topically 3 times daily To urinary meatus (catheter insertion site) 15 g 09/01/2019 Active Additional Information Patient not taking.Reported on 11/29/2019 oxyCODONE (ROXICODONE) 10 MG tabletIndications: Urachal cyst Take 0.5-1 tablets (5-10 mg) by mouth every 4 hours as needed for moderate to severe pain 18 tablet 09/01/2019 Active Additional Information Patient not taking.Reported on 11/29/2019 senna-docusate (SENOKOT-S/PERICOL MARQUITA) 8.6-50 MG tabletIndications: Urachal cyst Take 1-2 tablets by mouth 2 times daily To prevent constipation 45 tablet 09/01/2019 Active Additional Information Patient not taking.Reported on 11/29/2019 oxybutynin ER (DITROPAN-XL) 5 MG 24 hr tabletIndications: Urinary frequency Take 1 tablet (5 mg) by mouth daily 30 tablet 4 01/25/2020 Active Active Problems Problem Noted Date Diagnosed Date Hematuria 09/14/2019 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 Inpatient psychiatry at [facility] January 2012 for cutting. Social History Tobacco Use Types Packs/Day Years Used Date Smoking Tobacco: Light Smoker Vaping Device Smokeless Tobacco: Current Tobacco Cessation:Ready to Q uit: Yes; Counseling Given: Yes Alcohol Use Standard Drinks/Week Comments Not Currently 0 (1 standard drink = 0.6 oz pur e alcohol) Adolescent Education Answer Date Record ed Getting School Help Needed Not on file 04/06 Sex and Gender Information Value Date Recorded Sex Assigned at Not on file Gender Identity Not on file Sexual Orientation Not on file Last Filed Vital Signs Vital Sign Reading Time Taken Comments Blood Pressure 106/70 11/29/2019 1:41 PM CDT Pulse 82 11/29/2019 1:41 PM CDT Temperature 37.2 ??C (99 ??F) 11/29/2019 1:41 PM CDT Respiratory Rate 14 11/29/2019 1:41 PM CDT Oxygen Saturation 97% 11/29/2019 1:41 PM CDT Inhaled Oxygen Concentration - - Weight 83.3 kg (183 lb 9.6 oz) 11/29/2019 1:41 P M CDT Height 182.9 cm (6') 09/14/2019 1:15 AM CDT Body Mass Index 24.9 09/14/2019 1:15 AM CDT Plan of Treatment Not on file Advance Directives For more information, please contact: [phone] * Full Code (Latest Code Status on File) Date Activated Date Inactivated Comments 09/15/2019 9:45 AM Question Answer Comments Code status determined by: Unable to dis cuss and no AD/POLST on file; continue PREVIOUSLY ORDERED code status * Full Code Date Activated Date Inactivated Comments 09/14/2019 5:32 AM 09/15/2019 9:45 AM Question Answer Comments Code status determined by: Discussion with jeremy donis/legal decision maker * Full Code Date Activated Date Inactivated Comments 08/30/2019 5:09 PM 09/01/2019 3:16 PM Question Answer Comments Code status determined by: Unable to dis cuss and no AD/POLST on file; continue PREVIOUSLY ORDERED code status Care Teams Mica Paster Relationship Specialty [place] [address] [address] YUEJAZMIN [address] PCP - General Family Practice 08/30/19 System, Provider Not In Referring Physician Clinic 08/19/19 Paras Juárez MD 420 [facility] [address] [place] [address] Urology 08/19/19
--- OUTSIDE RECORDS SUMMARY | 2024-01-09 14:58 | XMS_ITS | Encounter Summary ---
Author Organization [place] Address [address] [place] [address] Care Team Providers Care Stock Supervisor Name Role Phone System, Provider Not In Unavailable Unavaila [facility] Paras Juárez MD Unavailable [phone] Ann Weathers RN Unavailable [phone] Luisa Portillo MD Primary Care Provider + [phone] Paras Juárez MD Unavailable [phone] Jeanette Ratliff Unavailable [phone] Reason for Visit * Reason Onset Date Comments Symptoms 10/05/2019 urinating blood Encounter Details Date Type Department Care Team (Late st Contact Info) Description 10/05/2019 [facility]rolog[facility] [address] [place] [address] Jeanette Ratliff PA [address] [place] [address] [place] [address] Symptoms (urinating blood) Social History Tobacco Use Types Packs/Day Years [...] PM CDT documented as of this encounter Miscellaneous Notes * Telephone Encounter - Lidya Sood LPN - 10/05/2019 4:14 PM CDT Contacted patient to discuss symptoms. No fever, no chills, no dysuria. Patient started pushing fluids and now urine is completely clear, no signs of blood or clots. When he did start having hematuria with clots, he noticed pain in his left leg. Patient rates pain currently as 4/10. Advised patientthat I would review this with Dr. Wiseman, but for now to continue pushing fluids. Lidya Sood LPN * Telephone Encounter - Dillon Serna - 10/05/2019 11:50 AM CDT Health Call Center Phone Message May a detailed message be left on voicemail: yes Reason for Call: Symptoms or Concerns If patient has red-flag symptoms, warm transfer to triage line Current symptom or concern: urinating blood Symptoms have been present for: 2 week(s) Has patient previously been seen for this? Yes Are there any new or worsening symptoms? Yes: Pt states he is urinating blood again since his last procedure. Please follow up with the Pt. Action Taken: Message routed to: [facility] urology Travel Screening: Not Applicable documented in this encounter Plan of Treatment Not on file documented as of this encounter Visit Diagnoses Not on filedocumented in this encounter Care Teams Stock Supervisor Relationship Specialty [place] [address] JAZMIN Servin [address] PCP - General Family Practice 08/30/19 System, Provider Not In Referring Physician Clinic 08/19/19 Paras Juárez MD [address] [address] Urology 08/19/19 Ann Weathers, RN Registered Nurse Urology 08/19/19 01/14/23 Paras Juárez MD [address] [place] [address] Assigned Surgical Provider 04/21/20 09/12/20 Jeanette Ratliff PA 909 [facility] [place] [address] Assigned Surgical Provider 09/13/20 07/28/21 documented as of this encounter
--- OUTSIDE RECORDS SUMMARY | 2024-01-09 14:58 | XMS_ITS | Referral Summary ---
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 Inpatient psychiatry at [facility] January 2012 for cutting. Social History Tobacco [...] Advance Directives For more information, please contact: [phone] * Full Code (Latest Code Status on [...] continue PREVIOUSLY ORDERED code status Care Teams Security Architect Relationship Specialty [place] [address] [address] YUEJAZMIN [address] PCP - General Family Practice 08/30/19 System, Provider Not In Referring Physician Clinic 08/19/19 Paras Juárez MD 420 [facility] [address] [place] [address] Urology 08/19/19
[2024-01-09 15:12] LABS: Basophils Absolute Auto 0.08 K/uL (0.00-0.30); Basophils Percent Auto 1.3 % (0.0-3.0); Eosinophils Percent Auto 7.2 % (0.0-7.0); Hematocrit 41.3 % (37.0-53.0); Hemoglobin* 13.7 gm/dL (13.5-17.5); Immature Granulocytes Abs Auto 0.03 K/uL (0.00-0.30); Immature Granulocytes Pct Auto 0.5 %; Lymphocytes Absolute Auto 1.85 K/uL (0.90-2.90); Lymphocytes Percent Auto 29.6 % (20-44); Mean Corpuscular HGB Conc 33 gm/dL (32-36); Mean Corpuscular Hemoglobin 30 pg (26-34); Mean Corpuscular Volume 91 fL (80-100); Monocytes Percent Auto 8.8 % (0.0-11.0); Neutrophils Percent Auto 52.6 % (42.0-72.0); Platelet Count* 168 K/uL (140-440); RDW Coefficient of Variation % 12.6 % (11.5-15.5); Red Blood Count 4.55 m/uL (4.30-5.90); White Blood Count* 6.26 K/uL (4.50-11.00)
[2024-01-09 15:31] LABS: Slide Review Reflex No
[2024-01-09 16:10] LABS: Chloride* 107 mmol/L (96-114); Sodium* 139 mmol/L (135-149)
[2024-01-09 16:13] LABS: Creatinine* 0.8 mg/dL (0.5-1.5); Est. Creatinine Clearance* 140.11; Estimated Glomerular Filt Rate 118 ml/min
[2024-01-09 16:14] LABS: Anion Gap 5 mEq/L (7-15); Blood Urea Nitrogen* 9 mg/dL (5-24); Carbon Dioxide* 27 mmol/L (20-32); Glucose* 81 mg/dL (60-115); Uric Acid* 4.7 mg/dL (2.2-8.4)
[2024-01-09 16:15] LABS: Calcium* 9.1 mg/dL (8.4-10.6)
[2024-01-09 16:37] LABS: C Reactive Protein* < 0.5 mg/dL (0.5-1.0); Procalcitonin* < 0.03 ng/mL (<0.50)
[2024-01-09 16:50] VITALS: BP 117/72; PULSE 79; RESP 18; O2SAT 97
[2024-01-09 18:26] LABS: Erythrocyte SedimentationRate* 7 mm/hr (2-15)
== END 2024-01-09 17:30 | disposition home or self-care (01) ==
PROVIDERS: Emergency Provider Family Medicine
DX: M79.671 Pain in right foot (principal)
CPT/HCPCS: 36415; 73630; 80048; 84145; 84550; 85025; 85651; 86140; 96372; 99283; 99284; J1885

== ENCOUNTER 2025-02-04 11:17 | Emergency (ER) | payer MEDICAID, SELFPAY ==
--- OUTSIDE RECORDS SUMMARY | 2025-02-04 11:19 | XMS_ITS | Encounter Summary ---
Author Organization [place] Address [address] [place] [address] Care Team Providers Care Busperson Name Role Phone System, Provider Not In Unavailable Unavaila Paras Thorne MD Unavailable [phone] Ann Weathers RN Unavailable [phone] Luisa Portillo MD Primary Care Provider + [phone] Paras Juárez MD Unavailable [phone] Jeanette Ratliff Unavailable [phone] Encounter Details Date Type Department Care Team (Late st Contact Info) Description 09/02/2019 MyC Medical Advice [facility] Urology and Inst for Prostate and Urologic Cancers [address] [place] [address] [address]th [place] [address] Ann Weathers, RN Social History Tobacco Use Types Packs/Day Years Used Date Smoking Tobacco: Light Smoker Smokeless Tobacco: Current Alcohol Use Standard Drinks/Week Comments Not Currently 0 (1 standard drink = 0.6 oz pur e alcohol) Sex and Gender Information Value Date Recorded Sex Assigned at Not on file 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 Gender Identity Not on file Sexual Orientation Not on file documented as of this encounter Plan of Treatment Not on file documented as of this encounter Visit Diagnoses Not on filedocumented in this encounter Care Teams Busperson Relationship Specialty [place] [address] [place] [address] PCP - General Family Practice 08/30/19 System, Provider Not In Referring Physician Clinic 08/19/19 Paras Juárez MD [address] [address] Urology 08/19/19 Ann Weathers, RN Registered Nurse Urology 08/19/19 01/14/23 Paras Juárez MD [address] [place] [address] Assigned Surgical Provider 04/21/20 09/12/20 Jeanette Ratliff PA 909 [facility] [place] [address] Assigned Surgical Provider 09/13/20 07/28/21 documented as of this encounter
--- OUTSIDE RECORDS SUMMARY | 2025-02-04 11:19 | XMS_ITS | Clinical Summary ---
Author Organization [place] Address [address] [place] [address] Care Team Providers Care Clay Pigeon Setter Name Role Phone System, Provider Not In Unavailable Unavaila Paras Thorne MD Unavailable [phone] Luisa Portillo MD Primary Care Provider + [phone] Allergies No known active allergies Medications hydrOXYzine (ATARAX) 50 MG tablet Take 50 mg by mouth 3 times daily as needed 0 Active traZODone (DESYREL) 50 MG tablet Take 50 mg by mouth nightly as needed 9 Active citalopram (CELEXA) 20 MG tablet Take 20 mg by mouth daily 0 Active Amphetamine-Dex troamphetamine (ADDERALL PO) Active ibuprofen (ADVIL/MOTRIN) 600 MG tabletIndicatio ns:Infected urachal cyst Take 1 tablet (600 mg) by mouth every 6 hours as needed for moderate pain 40 tablet 0 Active Additional Information Patient not taking.Reported on 11/29/2019 acetaminophen (TYLENOL) 325 MG tabletIndicatio ns:Urachal cyst Take 2 tablets (650 mg) by mouth every 4 hours as needed for mild pain 150 tablet 0 Active Additional Information Patient not taking.Reported on 01/25/2020 bacitracin 500 UNIT/GM external ointmentIndicat ions:Urachal cyst Apply topically 3 times daily To urinary meatus (catheter insertion site) 15 g 0 Active Additional Information Patient not taking.Reported on 11/29/2019 oxyCODONE (ROXICODONE) 10 MG tabletIndicatio ns:Urachal cyst Take 0.5-1 tablets (5-10 mg) by mouth every 4 hours as needed for moderate to severe pain 18 tablet 0 Active Additional Information Patient not taking.Reported on 11/29/2019 senna-docusate (SENOKOT-S/GAYLE COLACE) 8.6-50 MG tabletIndicatio ns:Urachal cyst Take 1-2 tablets by mouth 2 times daily To prevent constipation 45 tablet 0 Active Additional Information Patient not taking.Reported on 11/29/2019 oxybutynin ER (DITROPAN-XL) 5 MG 24 hr tabletIndicatio ns:Urinary frequency Take 1 tablet (5 mg) by mouth daily 30 tablet 4 0 Active Active Problems Problem Noted Date Diagnosed Date Hematuria 09/14/2019 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 Inpatient psychiatry at [facility] January 2012 for cutting. 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 Gender Identity Not on file Sexual Orientation Not on file Last Filed Vital Signs Vital Sign Reading Time Taken Comments Blood Pressure 106/70 11/29/2019 1:41 PM CDT Pulse 82 11/29/2019 1:41 PM CDT Temperature 37.2 C (99 F) 11/29/2019 1:41 PM CDT Respiratory Rate 14 11/29/2019 1:41 PM CDT Oxygen Saturation 97% 11/29/2019 1:41 PM CDT Inhaled Oxygen Concentration - - Weight 83.3 kg (183 lb 9.6 oz) 11/29/2019 1:41 P M CDT Height 182.9 cm (6') 09/14/2019 1:15 AM CDT Body Mass Index 24.9 09/14/2019 1:15 AM CDT Plan of Treatment Not on file Insurance * Guarantor: CLAUDETTE GARCIA Account Type Relation to Patient Date of Phone Billing Address Personal/Family [address] [address] [place] Advance Directives For more information, please contact: [phone] * Full Code (Latest Code Status on File) Date Activated Date Inactivated Comments 09/15/2019 9:45 AM Question Answer Comments Code status determined by: Unable to dis cuss and no AD/POLST on file; continue PREVIOUSLY ORDERED code status * Full Code Date Activated Date Inactivated Comments 09/14/2019 5:32 AM 09/15/2019 9:45 AM Question Answer Comments Code status determined by: Discussion with patie nt/legal decision maker * Full Code Date Activated Date Inactivated Comments 08/30/2019 5:09 PM 09/01/2019 3:16 PM Question Answer Comments Code status determined by: Unable to dis cuss and no AD/POLST on file; continue PREVIOUSLY ORDERED code status Care Teams Clay Pigeon Setter Relationship Specialty [place] [address] [facility] [address] PCP - General Family Practice 08/30/19 System, Provider Not In Referring Physician Clinic 08/19/19 Paras Juárez MD [address] [place] [address] [address] [place] [address] Urology 08/19/19
--- OUTSIDE RECORDS SUMMARY | 2025-02-04 11:19 | XMS_ITS | Encounter Summary ---
Author Organization [place] Address [address] [place] [address] Care Team Providers Care Salesperson Driver Name Role Phone System, Provider Not In Unavailable Unavaila [facility] Paras Juárez MD Unavailable [phone] Ann Weathers RN Unavailable [phone] Luisa Portillo MD Primary Care Provider + [phone] Paras Juárez MD Unavailable [phone] Jeanette Ratliff Unavailable [phone] Encounter Details Date Type Department Care Team (Late st Contact Info) Description 12/13/2019 MyC Medical Advice [facility] [address] [place] [address] Krystal [place] Social History Tobacco Use Types Packs/Day Years Used Date Smoking Tobacco: Light Smoker Smokeless Tobacco: Current Alcohol Use Standard Drinks/Week Comments Not Currently 0 (1 standard drink = 0.6 oz pur e alcohol) Sex and Gender Information Value Date Recorded Sex Assigned at Not on file 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 Gender Identity Not on file Sexual Orientation [...] on filedocumented in this encounter Care Teams Salesperson Driver Relationship Specialty [place] [address] JAZMIN Servin [address] PCP - General Family Practice 08/30/19 System, Provider Not In Referring Physician Clinic 08/19/19 Paras Juárez MD [address] [address] Urology 08/19/19 Ann Weathers, CHEL Registered Nurse Urology 08/19/19 01/14/23 Paras Juárez MD [address] [place] [address] Assigned Surgical Provider 04/21/20 09/12/20 Jeanette Ratliff PA 909 [facility] [place] [address] Assigned Surgical Provider 09/13/20 07/28/21 documented as of this encounter
--- OUTSIDE RECORDS SUMMARY | 2025-02-04 11:19 | XMS_ITS | Patient Health Record ---
Author Organization [facility] Address [address] [address] Care Team Providers Care Designated Broker Name Role Phone CEZAR SMITH MD Unavailable Cezar Haque MD Unavailable Unavailable Reason For Referral No Information Plan Of Treatment No Information Insurance Providers Payer Name Payer Address Payer Phone Subscriber Number Group Number Insured Name Patient Relationship to Insured Coverage Start Date Coverage End Date [employer] PMAP [address] [address] [place] [address] [id number] Ronan Rolon Self - patient is the insured
[2025-02-04 11:20] VITALS: BP 135/77; PULSE 86; RESP 18; TEMP 36.6; O2SAT 96; BMI 25.1
--- NOTE | 2025-02-04 11:42 | ED.BACK ---
HPI - Back Pain/Injury General Chief Complaint: Back Injury/Pain Stated Complaint: back pain Time Seen by Provider: 02/04/25 11:26 History of Present Illness HPI Narrative: This 39-year-old male comes in reporting upper mid left-sided back pain over the past few days. He does not know of any particular injury event or strenuous activity to trigger this. He states that the pain is distinctly reproducible with certain movements and when taking a deep breath. Related Data Home Medications ?Medication ?Instructions ?Recorded ?Confirmed quetiapine 50 mg tablet mg 05/17/22 sertraline 50 mg tablet mg 05/17/22 clonazepam 0.5 mg tablet 0.5 mg PO DAILY PRN anxiety 01/09/24 02/04/25 dextroamphetamine-amphetamine 20 1 tab PO DAILY 01/09/24 02/04/25 mg tablet Previous Rx's ?Medication ?Instructions ?Recorded cyclobenzaprine 10 mg tablet 10 mg PO TID #15 tabs 02/04/25 ketorolac 10 mg tablet 10 mg PO TID 5 days #15 tabs 02/04/25 Allergies Allergy/AdvReac Type Severity Reaction Status Date / Time No Known Drug Allergies Allergy Verified 02/04/25 11:24 Review of Systems Status of ROS: Reports: 10 or more systems reviewed and unremarkable except as noted in History and below Narrative: Constitutional: No fevers, no weight gain or loss. Eyes: No discharge. No vision changes. HENT: No congestion, no sore throat, no ear pain. Cardiovascular: No chest pain, no palpitations. Respiratory: No shortness of breath, no wheezes, no cough. Gastrointestinal: No abdominal pain, no vomiting, no diarrhea. Genitourinary: No dysuria, no hematuria. Musculoskeletal: Normal range of motion. Skin: No rashes, no pruritis. Neurological: No dizziness, weakness, sensory change, speech change. Endo/Heme/Allergies: No bruising or bleeding. No polydipsia. Pysch: no suicidality, no anxiety, no insomnia. All other systems reviewed and are negative. [facility] Social History Smoking Status: Current every day smoker Do you use any of these nicotine containing products: Vaping Products Second hand tobacco smoke exposure: No How often do you have a drink containing alcohol: never AUDIT-C Alcohol total score: 0 Non-prescribed substance use: marijuana (any form) Non-prescribed substance use details: Marijuana for depression service: No Exam Narrative: Exam Narrative: Constitutional: Well-developed, well-nourished, no acute distress. HEENT: Normocephalic, atraumatic. Neck: Normal range of motion. Nontender. Supple. Heart: Intact distal pulses. Lungs: No chest discomfort. No wheezes, rhonchi, or rales. Abdomen: Nontender. Back: Normal range of motion. Pain is localized on the medial aspect of the left scapula. No midline tenderness when palpating along his spine. No radiating pain. Extremities: Normal range of motion. No injury. Skin: Intact. No rash. Warm. No erythema or pallor. Neurologic: No altered sensation. No weakness. Alert and oriented. Psychiatric: No suicidality. No anxiety or depression. No insomnia. Nursing notes and vitals signs are reviewed. Const: Vital Signs, click to edit/add: Vital Signs - 24 hr 02/04/25 11:20 Temperature 97.8 F Pulse Rate [Right Pulse Oximeter] 86 Respiratory Rate 18 Blood Pressure [Ri ght Upper Arm] 135/77 Pulse Oximetry 96 Oxygen Delivery Me thod Room Air Course Vital Signs Vital signs: Initial Vital Signs Temperature 97.8 F 02/04/25 11:20 Temperature Source Temporal Artery Scan 02/04/25 11:20 Pulse Rate 86 02/04/25 11:20 Pulse Rhythm Regular 02/04/25 11:20 Pulse Strength 3+ Normal 02/04/25 11:20 Respiratory Rate 18 02/04/25 11:20 Blood Pressure 135/77 02/04/25 11:20 Blood Pressure Mean 96 02/04/25 11:20 Blood Pressure Position Sitting 02/04/25 11:20 Pulse Oximetry 96 02/04/25 11:20 Oxygen Delivery Method Room Air 02/04/25 11:20 Vital Signs Temperature 97.8 F 02/04/25 11:20 Pulse Rate 86 02/04/25 11:20 Respiratory Rate 18 02/04/25 11:20 Blood Pressure 135/77 02/04/25 11:20 Pulse Oximetry 96 02/04/25 11:20 Oxygen Delivery Method Room Air 02/04/25 11:20 Temperature 97.8 F 02/04/25 11:20 Pulse Rate 86 02/04/25 11:20 Respiratory Rate 18 02/04/25 11:20 Blood Pressure 135/77 02/04/25 11:20 Pulse Oximetry 96 02/04/25 11:20 Oxygen Delivery Method Room Air 02/04/25 11:20 MDM - Back Pain/Injury MDM Narrative Medical decision making narrative: This patient comes in with back pain along the medial aspect of his left scapula. He does not report any particular strenuous activity or injury event to trigger this. The pain is distinctly reproducible when taking a deep breath and with certain movements. His pain is localized in the area of the rhomboid muscles of his left scapula. I did discuss imaging and lab options but indicated that these will not help identify more specifically what is causing his symptoms. His heart and lungs sound normal. He does not have any respiratory symptoms. I did provide prescriptions for Toradol and Flexeril. Discharge Plan Discharge Clinical Impression: Thoracic back pain Patient Disposition: Home, Self-Care Condition: Unchanged Additional Instructions: Take medication as needed and indicated. You may also benefit from using a rib belt. Follow up with MD return if worsening. Prescriptions: New cyclobenzaprine 10 mg tablet 10 mg PO TID Qty: 15 0RF ketorolac 10 mg tablet 10 mg PO TID 5 Days Qty: 15 0RF No Action clonazepam 0.5 mg tablet 0.5 mg PO DAILY PRN (Reason: anxiety) dextroamphetamine-amphetamine 20 mg tablet 1 tab PO DAILY sertraline 50 mg tablet quetiapine 50 mg tablet Follow Up/Referrals: Provider,Not a Local [Primary Care Provider, Family Practice] Stand Alone Forms: Avenue Right Info Instructions
== END 2025-02-04 12:11 | disposition home or self-care (01) ==
LOC: ED 12:02
PROVIDERS: Emergency Provider Emergency Medicine Emergency Medical Services
DX: M54.6 Pain in thoracic spine (principal)
CPT/HCPCS: 99283; 99284